=== PATIENT | female | born 1935 | race Caucasian/White ===

== ENCOUNTER 2018-07-12 13:20 | Emergency (ER) | payer MEDICARE, SELFPAY ==
[2018-07-12 13:22] VITALS: BP 145/87; PULSE 91; RESP 16; TEMP 36.4; O2SAT 98; BMI 41.8
--- NOTE | 2018-07-12 13:42 | CT_ITS ---
STUDY: CT BRAIN WITHOUT CONTRAST REASON FOR EXAM: Female, 82 years old. Status post fall. History of hypertension. RADIATION DOSAGE (If Supplied By Facility): CTDIvol = ( 44.99 ) mGy, DLP = ( 779.24 ) mGycm TECHNIQUE: Transaxial CT imaging of the brain was performed without administration of intravenous contrast material. Individualized dose optimization techniques were used for this CT. COMPARISON: None. FINDINGS: Normal soft tissue structures. Normal calvarium. Normal size ventricles and extra-axial spaces for the patient's age. Normal white matter tracts of the cerebral hemispheres. Normal basal ganglia and thalami. Normal brainstem. Normal cerebellum. There is no intracranial hemorrhage. There are no findings of an acute ischemic infarction. There are surgical clips in the posterior wall of the left maxillary sinus. There is wide opening between the left maxillary sinus and the nasal cavity consistent with recent surgery and nasal turbinectomy. CT/Brain/Head without Contrast IMPRESSION: No acute intracranial process. Electronically Signed: Mal Ward MD at 14:56 EST Tel , Service support ,
--- NOTE | 2018-07-12 13:42 | RAD_ITS ---
STUDY: X-RAY - LEFT HIP REASON FOR EXAM: Female, 82 years old. Fall. Left hip pain. TECHNIQUE: 2 views of the hip. COMPARISON: None. FINDINGS: There is no fracture or dislocation in the pelvis or left hip. There mild degenerative changes in the left hip. There is an intramedullary yanni noted in the right femur. RAD/HIP, UNI W/ Pelvis 2-3 Views IMPRESSION: No fracture or dislocation of the pelvis or left hip. Mild degenerative changes in the left hip. Electronically Signed: Lobito Caruso, at 14:23 EST Tel , Service support ,
--- NOTE | 2018-07-12 15:40 | ED.DCSUM_ITS ---
- ER Visit Summary Date of Service: 07/12/18 Chief Complaint: [Fall with left hip injury] History of Present Illness: The patient is a 82 F [presents the emergency department complaint of a fall that occurred around 11:45 AM. Patient states that she was getting out of her truck and it was wet out she slipped and fell directly onto her left hip on the driveway and her head hit the grass alongside the driveway. Patient was not knocked unconscious but could not get up patient had to have help from a neighbor to stand up and her niece. Patient was subsequently able to ambulate. She denies any neck pain. She denies any chest pain or shortness of breath. Patient is not on any blood thinners. She does have a history of hypertension.] Physical Examination: [HEENT-PERRLA, EOMI. Cranial nerves II through XII grossly intact. TMs clear. Mucous membranes moist. No adenopathy. No C-spine tenderness on palpation Cardiovascular-regular rate and rhythm without murmur or ectopy Lungs-clear to auscultation, chest wall stable without crepitus or subcu emphysema Abdomen-normoactive bowel sounds, soft, nontender, no rebound or rigidity, no peritoneal signs. Back exam-no tenderness over the thoracic or lumbar spine. Extremities-intact ?4, normal range of motion, normal pulses. Left hip-patient does have some diffuse tenderness palpation over the left hip with some faint ecchymosis noted. Patient has no shortening or external rotation. She is neurovascular intact distally. Test Results: [CT scan of the brain without contrast showed nothing acute. X- rays of the left hip and pelvis were negative for fracture. ] Emergency Department Course and Treatment: [Patient is now anything for pain in the department] Treatment Plan: [Patient advised use ice to the area and follow-up with her primary care physician in 5-7 days as needed.] Disposition: [Discharged home in stable condition] Impression: [Mechanical fall Left hip contusion Close head injury] This note was generated with [employer] dictation software. It may contain incorrect words, spelling, and punctuation that were not noted in review of the chart prior to signing ED Disposition - Plan for ED Patient: Chief Complaint: Fall Referrals: [facility] Doctor,Out of [Primary Care Provider] -
--- NOTE | 2018-07-12 15:41 | ED.DEP ---
ED Disposition - Plan for ED Patient: Chief Complaint: Fall Instructions: ED Mechanical Fall, ED Head Injury Closed, ED Contusion Hip Referrals: [facility] Doctor,Out of [Primary Care Provider] - 5-7 Days
--- OUTSIDE RECORDS SUMMARY | 2018-09-05 20:40 | XMS RPT_ITS ---
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, A Community unspecified / Hospital D50.9(ICD-10) Repository 03/04/2018 Active 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, 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 / A Community E78.2(ICD-10) Hospital Repository PROCEDURES PROCEDURES No Procedure Records FoundRESULTS RESULTS DISCHARGE INSTRUCTION Observed: 07/12/2018 Status: F Source: [place] 3:41 PM [facility] [place] [facility] Medical Records Department [address] [place] [address] Discharge Instruction 07/12/18 1541 MR#: [id number] Acct: [id number] Name: VANESSA VUONG Rep #: [id number] : 1935 82 From: Ayush Cordon DO PCP: OUT OF TOWN DOCTOR Status: REG ER ED Disposition - Plan for ED Patient: Chief Complaint: Fall Instructions: ED Mechanical Fall, ED Head Injury Closed, ED Contusion Hip Referrals: [facility] Doctor,Out of [Primary Care Provider] - 5-7 Days What to do if you have Problems For any increased pain, shortness of breath, bleeding, nausea or vomiting, chest pain, or any unexpected problems, contact your Primary Care Provider. Call [facility] ([phone]) or report to the closest Emergency Room. Call 911 if necessary. 07/12/18 154 <Electronically signed by Ayush Cordon DO> Date Ayush Cordon DO Cosigner Signature (If Indicated): Date CC: DR AMINA CURTIS; OUT OF TOWN DOCTOR EMERGENCY DEPARTMENT Observed: 07/12/2018 Status: F Source: [place] SUMMARY 3:40 PM [facility] [place] [facility] Medical Records Department [address] [place] [address] Emergency Department Summary 07/12/18 1538 MR#: [id number] Acct: [id number] Name: VANESSA VUONG Rep #: [id number] : 1935 82 From: Ayush Cordon DO PCP: OUT OF TOWN DOCTOR Status: REG ER - ER Visit Summary Date of Service: 07/12/18 Chief Complaint: [Fall with left hip injury] History of Present Illness: The patient is a 82 F [presents the emergency department complaint of a fall that occurred around 11:45 AM. Patient states that she was getting out of her truck and it was wet out she slipped and fell directly onto her left hip on the driveway and her head hit the grass alongside the driveway. Patient was not knocked unconscious but could not get up patient had to have help from a neighbor to stand up and her niece. Patient was subsequently able to ambulate. She denies any neck pain. She denies any chest pain or shortness of breath. Patient is not on any blood thinners. She does have a history of hypertension.] Physical Examination: [HEENT-PERRLA, EOMI. Cranial nerves II through XII grossly intact. TMs clear. Mucous membranes moist. No adenopathy. No C-spine tenderness on palpation Cardiovascular-regular rate and rhythm without murmur or ectopy Lungs-clear to auscultation, chest wall stable without crepitus or subcu emphysema Abdomen-normoactive bowel sounds, soft, nontender, no rebound or rigidity, no peritoneal signs. Back exam-no tenderness over the thoracic or lumbar spine. Extremities-intact 4, normal range of motion, normal pulses. Left hip-patient does have some diffuse tenderness palpation over the left hip with some faint ecchymosis noted. Patient has no shortening or external rotation. She is neurovascular intact distally. Test Results: [CT scan of the brain without contrast showed nothing acute. X-rays of the left hip and pelvis were negative for fracture. ] Emergency Department Course and Treatment: [Patient is now anything for pain in the department] Treatment Plan: [Patient advised use ice to the area and follow- up with her primary care physician in 5-7 days as needed.] Disposition: [Discharged home in stable condition] Impression: [Mechanical fall Left hip contusion Close head injury] This note was generated with [employer] dictation software. It may contain incorrect words, spelling, and punctuation that were not noted in review of the chart prior to signing ED Disposition - Plan for ED Patient: Chief Complaint: Fall Referrals: [facility] Doctor,Out of [Primary Care Provider] - What to do if you have Problems For any increased pain, shortness of breath, bleeding, nausea or vomiting, chest pain, or any unexpected problems, contact your Primary Care Provider. Call [facility] ([phone]) or report to the closest Emergency Room. Call 911 if necessary. 07/12/18 1540 <Electronically signed by Ayush Cordon DO> Date Ayush Cordon DO Cosigner Signature (If Indicated): Date CC: DR AMINA CURTIS; OUT OF TOWN DOCTOR HIP, UNI W/ PELVIS Observed: 07/12/2018 Status: F Source: [place] 2-3 VIEWS 1:43 PM [facility] [place] [facility] Imaging Services [address] [place] [address] HIP, UNI W/ Pelvis 2-3 Views MR#: [id number] Acct: [id number] Name: VANESSA VUONG Rep #: [id number] : 1935 F 82 From: Lobito Caruso MD PCP: OUT OF TOWN DOCTOR Status: REG ER Study: HIP, UNI W/ Pelvis 2-3 Views Date of Exam: 07/12/18 Exam# [id number] Ordering Dr: Ayush Cordon DO STUDY: X-RAY - LEFT HIP REASON FOR EXAM: Female, 82 years old. Fall. Left hip pain. TECHNIQUE: 2 views of the hip. COMPARISON: None. FINDINGS: There is no fracture or dislocation in the pelvis or left hip. There mild degenerative changes in the left hip. There is an intramedullary yanni noted in the right femur. RAD/HIP, UNI W/ Pelvis 2-3 Views IMPRESSION: No fracture or dislocation of the pelvis or left hip. Mild degenerative changes in the left hip. Electronically Signed: Lobito Caruso, at 14:23 EST Tel , Service support , CC: OUT OF TOWN DOCTOR; Ayush Cordon DO [employer] Aide: Signed BRAIN/HEAD WITHOUT Observed: 07/12/2018 Status: F Source: [place] CONTRAST 1:43 PM [facility] [place] [facility] Imaging Services [address] [place] [address] Brain/Head without Contrast MR#: [id number] Acct: [id number] Name: VANESSA VUONG Rep #: [id number] : 1935 F 82 From: Mal Ward MD PCP: OUT OF TOWN DOCTOR Status: REG ER Study: Brain/Head without Contrast Date of Exam: 07/12/18 Exam# [id number] Ordering Dr: Ayush Cordon DO STUDY: CT BRAIN WITHOUT CONTRAST REASON FOR EXAM: Female, 82 years old. Status post fall. History of hypertension. RADIATION DOSAGE (If Supplied By Facility): CTDIvol = ( 44.99 ) mGy, DLP = ( 779.24 ) mGycm TECHNIQUE: Transaxial CT imaging of the brain was performed without administration of intravenous contrast material. Individualized dose optimization techniques were used for this CT. COMPARISON: None. FINDINGS: Normal soft tissue structures. Normal calvarium. Normal size ventricles and extra-axial spaces for the patient's age. Normal white matter tracts of the cerebral hemispheres. Normal basal ganglia and thalami. Normal brainstem. Normal cerebellum. There is no intracranial hemorrhage. There are no findings of an acute ischemic infarction. There are surgical clips in the posterior wall of the left maxillary sinus. There is wide opening between the left maxillary sinus and the nasal cavity consistent with recent surgery and nasal turbinectomy. CT/Brain/Head without Contrast IMPRESSION: No acute intracranial process. Electronically Signed: Mal Ward MD at 14:56 EST Tel , Service support , CC: OUT OF TOWN DOCTOR; Ayush Cordon DO [employer] Aide: Signed CBC WITH AUTO DIFF Collected: 03/04/2018 Status: F Source: [place] 7:18 AM [facility] [place] TYPE CODE TESTS RESULT OUT OF RANGE REFERENCE UNITS LAB WBC 4.0-11.0 K/uL WHITE BLOOD Normal COUNT 5.9 LAB RBC 4.20-5.50 M/uL RED BLOOD Normal COUNT 4.29 LAB HGB 12.0-16.0 g/dL HEMOGLOBIN Normal 12.3 LAB HCT 37.0-47.0 % Low HEMATOCRIT 36.6 LAB MCV 80-97 fL MEAN CELL Normal VOLUME 85.2 LAB MCH 26.0-32.0 pg MEAN Normal CORPUSCULAR HGB 28.6 LAB MCHC 31.0-36.0 g/dL MEAN Normal CORPUSCULAR HGB 33.5 CONC LAB RDW 11.0-15.5 % High RED CELL DISTRI WIDTH 15.6 LAB PLT 140-450 K/uL PLATELET Normal COUNT 218 LAB MPV 6.6-10.5 fl MEAN Normal PLATELET VOLUME 7.3 LAB GR% 42-80 % GRAN % Normal 54.5 LAB LY% 16-48 % LYMPH % Normal 33.6 LAB MO% 3-9 % MONO % Normal 8.5 LAB EO% 0-8 % EOS % Normal 2.8 LAB BASO% 0-2 % BAS0 % Normal 0.60 LAB GR# 2.2-9.1 K/uL GRAN # Normal 3.2 LAB LY# 1.0-4.0 K/uL LYMPH # Normal 2.0 LAB MO# 0.1-1.7 K/uL MONO # Normal 0.5 LAB EO# 0.0-1.80 K/uL EOS # Normal 0.2 LAB BA# 0-0.1 K/ul BASO # Normal 0.0 Performed By: #### CBC #### [address] [address] IRON Collected: 03/04/2018 Status: F Source: [place] 7:18 AM [facility] [place] [facility] TYPE CODE TESTS RESULT OUT OF RANGE REFERENCE UNITS LAB FE 50-170 ug/dL Normal IRON 59 Performed By: #### LIPID, MN, FE #### [address] [address] COMPREHENSIVE METABOLIC Collected: 03/04/2018 Status: F Source: [place] PANEL 7:18 AM [facility] [place] [facility] TYPE CODE TESTS RESULT OUT OF REFERENCE UNITS RANGE LAB GLU 70-100 mg/dL GLUCOSE Normal 90 LAB BUN 7-18 mg/dL BUN High 27.0 LAB CRE 0.4-1.2 mg/dL CREATININE Normal 1.00 LAB NA 136-147 MMOL/L SODIUM Normal 142 LAB K 3.6-5.2 MMOL/L POTASSIUM Normal 4.1 LAB CL 98-107 MMOL/L CHLORIDE High 109 LAB CO2 21-32 MMOL/L CARBON Normal DIOXIDE 26.0 LAB GAP 11-23 ANION GAP Normal 12.0 LAB HENRIQUE 8.5-10.1 mg/dL CALCIUM Normal 8.9 LAB TP 6.0-8.3 g/dL TOTAL Normal PROTEIN 7.1 LAB ALB 3.0-5.0 g/dL ALBUMIN Normal 3.4 LAB GLOB 2.5-4.6 g/dl GLOBULIN Normal 3.7 LAB A/G 1.1-1.8 Low ALB/GLOB RATIO 0.9 LAB TBIL 0-1.0 mg/dL Normal BILIRUBIN,TOTAL 0.5 LAB SGOT 9-34 U/L SGOT/AST Normal 19 LAB SGPT 12-78 U/L SGPT/ALT Normal 21 LAB ALK 45-117 U/L ALK Normal PHOSPHATASE 92 LAB GFR mL/min GFR 56.0 LAB GFRAA mL/min GFR AM > 60.0 Result Comment: THE NORMAL LEVEL OF GFR VARIES ACCORDING TO AGE, SEX, AND BODY SIZE. A GFR LEVEL OF LESS THAN 60 ML/MIN REPRESENTS LOSS OF THE ADULT LEVEL OF NORMAL KIDNEY FUNCTION. Performed By: #### LIPID, MN, FE #### [address] [address] LIPID PROFILE Collected: 03/04/2018 Status: F Source: [place] (FAST[place]) 7:18 AM [facility] [place] TYPE CODE TESTS RESULT OUT OF REFERENCE UNITS RANGE LAB CHOL 0-200 mg/dL CHOLESTEROL High 237 LAB TRIG 0-150 mg/dL TRIGLYCERIDES High 159 LAB VLDL 5-40 mg/dl VLDL CALCULATION 32 LAB HDL 40-60 mg/dL HDL 46 LAB CHOL/HDL 3.7-5.6 mg/dl CHOL/HDL RATIO 5.2 LAB LDLC 0-130 mg/dL LDL (CALCULATED) 160 Performed By: #### LIPID, MN, FE #### [place] [facility] [address] [place] [address] VIT D 25 [place] Collected: 03/04/2018 Status: F Source: [place] 7:18 AM [facility] [place] [facility] TYPE CODE TESTS RESULT OUT OF RANGE REFERENCE UNITS LAB VD25OH 30-80 ng/mL VIT D 25 40 [place] Result Comment: INTERPRETIVE INFORMATION: Vitamin D, 25-Hydroxy This assay accurately quantifies the sum of vitamin D3, 25-hydroxy and vitamin D2, 25-hydroxy. 0-17 years: Deficiency: less than 20 ng/mL Optimum level: greater than or equal to 20 ng/mL* *(Schmidt KORY et al. Pediatrics 2008; 122: 1142-52.) 18 years and older: Deficiency: Less than 20 ng/mL Insufficiency: 20-29 ng/mL Optimum Level: 30-80 ng/mL Possible Toxicity: Greater than 150 ng/mL Performed by [facility], [address] [place] [id number] [email or web address], Kash Wynn MD, Lab. Director Performed By: #### VD25OH #### [facility] #[id number] [address] [place] [address] CBC WITH AUTO DIFF Collected: 09/10/2017 Status: F Source: [place] 8:34 AM [facility] [place] [facility] TYPE CODE TESTS RESULT OUT OF RANGE REFERENCE UNITS LAB WBC 4.0-11.0 K/uL WHITE BLOOD Normal COUNT 6.5 LAB RBC 4.20-5.50 M/uL RED BLOOD Normal COUNT 4.43 LAB HGB 12.0-16.0 g/dL HEMOGLOBIN Normal 12.2 LAB HCT 37.0-47.0 % Low HEMATOCRIT 36.7 LAB MCV 80-97 fL MEAN CELL Normal VOLUME 83.0 LAB MCH 26.0-32.0 pg MEAN Normal CORPUSCULAR HGB 27.6 LAB MCHC 31.0-36.0 g/dL MEAN Normal CORPUSCULAR HGB 33.2 CONC LAB RDW 11.0-15.5 % High RED CELL DISTRI WIDTH 16.3 LAB PLT 140-450 K/uL PLATELET Normal COUNT 240 LAB MPV 6.6-10.5 fl MEAN Normal PLATELET VOLUME 7.8 LAB GR% 42-80 % GRAN % Normal 62.8 LAB LY% 16-48 % LYMPH % Normal 26.2 LAB MO% 3-9 % MONO % Normal 8.3 LAB EO% 0-8 % EOS % Normal 2.2 LAB BASO% 0-2 % BAS0 % Normal 0.50 LAB GR# 2.2-9.1 K/uL GRAN # Normal 4.1 LAB LY# 1.0-4.0 K/uL LYMPH # Normal 1.7 LAB MO# 0.1-1.7 K/uL MONO # Normal 0.5 LAB EO# 0.0-1.80 K/uL EOS # Normal 0.1 LAB BA# 0-0.1 K/ul BASO # Normal 0.0 Performed By: #### CBC #### [address] [address] IRON Collected: 09/10/2017 Status: F Source: [place] 8:34 [facility] REPOSITORY TYPE CODE TESTS RESULT OUT OF RANGE REFERENCE UNITS LAB FE 50-170 ug/dL Low IRON 30 Performed By: #### LIPID, MN, FE #### [address] [address] COMPREHENSIVE METABOLIC Collected: 09/10/2017 Status: F Source: [place] PANEL 8:34 [facility] REPOSITORY TYPE CODE TESTS RESULT OUT OF REFERENCE UNITS RANGE LAB GLU 70-100 mg/dL GLUCOSE Normal 90 LAB BUN 7-18 mg/dL BUN High 25.0 LAB CRE 0.4-1.2 mg/dL CREATININE Normal 1.10 LAB NA 136-147 MMOL/L SODIUM Normal 142 LAB K 3.6-5.2 MMOL/L POTASSIUM Normal 3.7 LAB CL 98-107 MMOL/L CHLORIDE Normal 107 LAB CO2 21-32 MMOL/L CARBON Normal DIOXIDE 27.0 LAB GAP 11-23 ANION GAP Normal 12.2 LAB HENRIQUE 8.5-10.1 mg/dL CALCIUM Normal 9.1 LAB TP 6.0-8.3 g/dL TOTAL Normal PROTEIN 7.1 LAB ALB 3.0-5.0 g/dL ALBUMIN Normal 3.4 LAB GLOB 2.5-4.6 g/dl GLOBULIN Normal 3.7 LAB A/G 1.1-1.8 Low ALB/GLOB RATIO 0.9 LAB TBIL 0-1.0 mg/dL Normal BILIRUBIN,TOTAL 0.5 LAB SGOT 9-34 U/L SGOT/AST Normal 14 LAB SGPT 12-78 U/L SGPT/ALT Normal 19 LAB ALK 45-117 U/L ALK Normal PHOSPHATASE 96 LAB GFR mL/min GFR 51.9 LAB GFRAA mL/min GFR 62.8 Result Comment: THE NORMAL LEVEL OF GFR VARIES ACCORDING TO AGE, SEX, AND BODY SIZE. A GFR LEVEL OF LESS THAN 60 ML/MIN REPRESENTS LOSS OF THE ADULT LEVEL OF NORMAL KIDNEY FUNCTION. Performed By: #### LIPID, MN, FE #### [facility] [address] [place] [address] LIPID PROFILE Collected: 09/10/2017 Status: F Source: [place] ([place]ST[place]) 8:34 AM [facility] [place] TYPE CODE TESTS RESULT OUT OF REFERENCE UNITS RANGE LAB CHOL 0-200 mg/dL CHOLESTEROL High 230 LAB TRIG 0-150 mg/dL TRIGLYCERIDES Normal 108 LAB VLDL 5-40 mg/dl VLDL CALCULATION 22 LAB HDL 40-60 mg/dL HDL 52 LAB CHOL/HDL 3.7-5.6 mg/dl CHOL/HDL RATIO 4.4 LAB LDLC 0-130 mg/dL LDL (CALCULATED) 156 Performed By: #### LIPID, MN, FE #### [facility] [address] [place] [address] VIT D 25 [place] Collected: 09/10/2017 Status: F Source: [place] 8:34 AM [facility] [place] TYPE CODE TESTS RESULT OUT OF RANGE REFERENCE UNITS LAB VD25OH 30-80 ng/mL VIT D 25 44 [place] Result Comment: INTERPRETIVE INFORMATION: Vitamin D, 25-Hydroxy This assay accurately quantifies the sum of vitamin D3, 25-hydroxy and vitamin D2, 25-hydroxy. 0-17 years: Deficiency: less than 20 ng/mL Optimum level: greater than or equal to 20 ng/mL* *(Schmidt CL et al. Pediatrics 2008; 122: 1142-52.) 18 years and older: Deficiency: Less than 20 ng/mL Insufficiency: 20-29 ng/mL Optimum Level: 30-80 ng/mL Possible Toxicity: Greater than 150 ng/mL Performed by [facility], [address] [place], [place] [id number] [email or web address], Kash Wynn MD, Lab. Director Performed By: #### VD25OH #### [facility] #[id number] [address] [place] [address] THYROID STIM HORMONE Collected: 09/07/2017 Status: F Source: [place] 7:12 [facility] TYPE CODE TESTS RESULT OUT OF RANGE REFERENCE UNITS LAB TSH 0.360-3.74 uIU/mL Normal THYROID STIM 1.280 HORMONE Performed By: #### TSH #### [address] [address] ALLERGIES ALLERGIES DATE TYPE / CODE NAME / CODE REACTION SEVERITY SOURCE 07/12/2018 Drug Penicillins/F00 Rash Unknown [place] [facility] Allergy/355 7657355(RXNORM) Hospital 579827([facility] Repository ED CT) 07/12/2018 Drug Tetanus Rash Unknown [place] [facility] Allergy/416 [facility] 418149([facility] Toxoid/[id number] Repository ED CT) 19(RXNORM) 07/12/2018 Drug hydrocodone/F00 Other Unknown [place] [facility] Allergy/805 2723626(RXNORM) [facility] 362280([facility] Repository ED CT) 07/12/2018 Drug aspirin/I210201 Other Unknown [place] [facility] Allergy/416 587(RXNO) [facility] 541005([facility] Repository ED CT) 07/12/2018 Drug acetaminophen/F Other Unknown [place] [facility] Allergy/416 [id number]([facility] 592275([facility]) Repository ED CT) 07/12/2018 Drug doxycycline/F00 Other Unknown [place] [facility] Allergy/670 8157737(RXNO) [facility] 201643([facility] Repository ED CT) 07/12/2018 Drug azithromycin/F0 Other Unknown [place] [facility] Allergy/416 [id number]([facility] 583986([facility] ) Repository ED CT) 03/06/2015 Drug Aspirin/[id number] Other Unknown [place] Allergy/416 0276(RXNORM) [facility] 513111([facility] ED CT) Repository 03/06/2015 Drug Doxycycline/M00 Rash Unknown [place] Allergy/416 36185124(RXNORM [facility] 435321([facility] ED CT) Repository 03/06/2015 Drug Tetanus Rash Unknown [place] Allergy/416 Antitoxin/M0000 [facility] 156060([facility] 1000[address] ED CT) Repository 03/06/2015 Drug Azithromycin/M0 Rash Unknown [place] Allergy/416 [id number](RXNOR [facility] 028615([facility] ED CT) Repository 03/06/2015 Drug Penicillins/M00 Rash Unknown [place] Allergy/416 59683249(RXNORM Community 867374([facility] ED CT) Repository ENCOUNTERS ENCOUNTERS ADMIT/DISCHARGE ACCOUNT ADMITTING ENCOUNTER LOCATION SOURCE NUMBER CLASS 07/12/2018/ [id number] Emergency [place] 8 2 [facility] ing:ED Repository 03/04/2018 [id number] [facility] ing:LB Repository 09/10/2017 [id number] [facility] ing:LB Repository 09/07/2017 [id number] [facility] ing:LB Repository PAYERS PAYERS ENCOUNTER GUARANTOR PAYER SUBSCRIBER SOURCE 07/12/2018 VANESSA A Primary VANESSA A [place] [id number] Insurance:AETNA ROBSONDOB: [facility] [place]: [id number] [id number] Repository [address]Oin: (330) Date:6009-80-56LU [phone] () [id number] MICHELE SMALL [phone]: 07/12/2018 Secondary NOT GIVENUNK [place] Insurance:SELF PAY [facility] Hospital Number: Effective Repository Date:2018-07-12 03/04/2018 VANESSA A Primary VANESSA A [place] [id number] [facility] ROBSONDOB[facility] [place] [place] Number: [id number] [facility] StreetAlliance, [id number] [address] [place] [address]Qxf: Date:3091[facility], [address] [place] [address] [place] [address] () [address]MA: 03/04/2018 Secondary VANESSA A [place] Insurance:AETNA ROBSONDOB: Community MEDICAREPolicy [id number] Hospital Number: [address] [place] [address] [id number] [facility], Date:0749-61-07[place] [id number] MICHELE SMALL [phone]: 03/04/2018 Tertiary VAENSSA A [place] Insurance:SELF ROBSONUNK Community PAYPolicy Number: Hospital Effective Repository Date:2018-03-04 09/10/2017 Vanessa A Primary Vanessa A [place] [id number] Insurance:AULTCAREPol RobsonDOB: Community [place] Number: [id number] [facility], [id number] [address] [place] [address]Psa: Date:4530-40-66EB [facility], [address] [place] [address] [place] [address] () [id number]: 09/10/2017 Secondary VANESSA A [place] Insurance:SELF ROBSONUNK Community PAYPolicy Number: Hospital Effective Repository Date:2017-09-10 09/07/2017 Vanessa A Primary Vanessa A [place] [id number] Insurance:AULTCAREPol RobsonDOB: Community [place] Number: [id number] [facility], [id number] [address] [address] [place] [address]Mbs: Date:4693-18-88EL[facility], [address] [place] [address] [place] [address] (HP) [address]BP: 09/07/2017 Secondary VANESSA A [place] Insurance:SELF ROBSONUNK Community PAYPolicy Number: Hospital Effective Repository Date:2017-09-07
== END 2018-07-12 15:51 | disposition home or self-care (01) ==
LOC: ED 14:23
PROVIDERS: Emergency Provider Emergency Medicine
DX: S70.02XA Contusion of left hip, initial encounter (principal); S09.90XA Unspecified injury of head, initial encounter; V58.4XXA Person boarding or alighting a pick-up truck or van injured in noncollision transport accident, initial encounter; Y93.9 Activity, unspecified; Y92.008 Other place in unspecified non-institutional (private) residence as the place of occurrence of the external cause; Y99.9 Unspecified external cause status; I10 Essential (primary) hypertension; Z79.899 Other long term (current) drug therapy
CPT/HCPCS: 70450; 73502; 99282

== ENCOUNTER 2018-10-07 12:32 | Emergency (ER) | payer MEDICARE, SELFPAY ==
[2018-10-07 12:33] VITALS: BP 196/94; PULSE 76; RESP 18; TEMP 36.6; O2SAT 96; BMI 39.4
--- NOTE | 2018-10-07 13:02 | CT_ITS ---
STUDY: CT BRAIN WITHOUT CONTRAST REASON FOR EXAM: Female, 82 years old. An trauma. RADIATION DOSAGE (If Supplied By Facility): CTDIvol = ( 60.81 ) mGy, DLP = ( 998.67 ) mGycm TECHNIQUE: Transaxial CT imaging of the brain was performed without administration of intravenous contrast material. Individualized dose optimization techniques were used for this CT. COMPARISON: Comparison is made with prior study dated July 12, 2018. FINDINGS: Normal soft tissue structures. There is hyperostosis frontalis internus. There is mild cerebral atrophy with widening of the extra-axial spaces and ventricular dilatation. Normal white matter tracts of the cerebral hemispheres. Normal basal ganglia and thalami. Normal brainstem. Normal cerebellum. There is no intracranial hemorrhage. There are no findings of an acute ischemic infarction. Atherosclerotic calcification of the vertebral arteries and cavernous portions of the internal carotid arteries bilaterally. There is evidence of prior resection of the medial wall of the left maxillary sinus. Mild residual mucosal thickening. CT/Brain/Head without Contrast IMPRESSION: Chronic involutional changes of the brain. Electronically Signed: Sanket De La Cruz, at 14:11 EST , Service support ,
--- NOTE | 2018-10-07 13:02 | CT_ITS ---
STUDY: CT CERVICAL SPINE WITHOUT CONTRAST REASON FOR EXAM: Female, 82 years old. Trauma. RADIATION DOSAGE (If Supplied By Facility): CTDIvol = ( 33.45 ) mGy, DLP = ( 578.97 ) mGycm TECHNIQUE: High resolution transaxial imaging was performed without contrast material. Sagittal and coronal images were reconstructed. Individualized dose optimization techniques were used for this CT. COMPARISON: None FINDINGS: Normal craniovertebral junction. There are degenerative changes of the anterior atlantoaxial articulation. Nondisplaced transverse fracture along the superior aspect of the dens. Normal cervical lordosis. Normal vertebral bodies and posterior osseous elements. C2-3: Normal endplates. Normal disc height and morphology. Normal central canal and intervertebral neuroforamina. C3-4: Mild degree of disc space narrowing. Facet joint osteoarthritis and hypertrophy worse on the right side. Mild bilateral neural foraminal stenosis. C4-5: Minimal anterior listhesis of C4 on C5. Spondylosis. Disc space narrowing. Facet joint osteoarthritis and uncovertebral arthrosis. Moderate bilateral neural foraminal stenosis. C5-6: Marked degree of disc space narrowing and spondylosis. Uncovertebral arthrosis. Bilateral neural foraminal stenosis. C6-7: Marked degree of disc space narrowing and anterior spondylosis. Facet joint osteoarthritis. Normal visualized soft tissue structures. CT/Spine Cervical without Contras IMPRESSION: Nondisplaced fracture of the superior aspect of the dens. N.B. : The above information has been verbally conveyed by Sanket De La Cruz to Lori Grace MD, on 10/07/2018 14:08:25 (ET). Electronically Signed: Sanket De La Cruz, at 14:09 EST , Service support ,
--- NOTE | 2018-10-07 13:02 | CT_ITS ---
STUDY: CT FACIAL BONES WITHOUT CONTRAST REASON FOR EXAM: Female, 82 years old. History of fall and injury. RADIATION DOSAGE (If Supplied By Facility): CTDIvol = ( 31.48 ) mGy, DLP = ( 471.91 ) mGycm TECHNIQUE: The patient was scanned in a multi detector CT scanner. Sagittal and coronal images were reconstructed. Individualized dose optimization techniques were used for this CT. COMPARISON: None. FINDINGS: Normal soft tissue structures. Normal orbital cordoba and orbital contents. Normal nasal bones and anterior nasal spine. Normal facial bones. There is no demonstrated fracture. Prior resection of the medial wall of the left maxillary sinus. Mild degree of residual postoperative mucosal thickening. Surgical clips are seen along the posterior-lateral wall of the left maxillary sinus. There is a 1.61 polyp or retention cyst along the anterior aspect of the right maxillary sinus. Once again, evidence of a nondisplaced fracture of the superior aspect of the dens. CT/Sinus/Facial Bone IMPRESSION: No acute abnormality is seen. Electronically Signed: Sanket De La Cruz, at 14:13 EST , Service support ,
--- NOTE | 2018-10-07 13:05 | ED.VISSUMM ---
- ER Visit Summary Date of Service: 10/07/18 Chief Complaint: Fall History of Present Illness: The patient is a 82 F presenting after fall. Patient states she tripped over a rug and fell yesterday. She hit her head. She denies loss of consciousness or amnesia. She is not on blood thinners. She complains the pain of the left side of her face and neck. She also complains of left elbow and left hand pain. She is able to ambulate. Denies other complaints. Physical Examination: Vitals are stable. Patient is afebrile. Alert no acute distress. HEENT exam PERRL, EOMI. No pain with extraocular movements. Left periorbital abrasion Neck is mild diffuse tenderness with no step-off Lungs are clear and equal bilaterally. Heart is regular rate and rhythm. Abdomen is soft nontender nondistended. Extremities mild tenderness of the second metacarpal, mild left elbow tenderness with active full range of motion Skin is warm and dry. No focal neurologic deficit. Remainder of exam is unremarkable. Emergency Department Course and Treatment: CT head shows chronic changes. CT maxilla facial bones shows no acute fracture. CT C-spine shows nondisplaced fracture of the superior aspect of the dens. Patient was placed in a cervical collar. CBC, chemistries unremarkable. She was given fentanyl IV. She is allergic to tetanus immunizations. Discussed with [facility] for transfer. Disposition: Transfer [facility] Impression: Dens fracture, mechanical fall This note was generated with [employer] dictation software. It may contain incorrect words, spelling, and punctuation that were not noted in review of the chart prior to signing ED Disposition - Plan for ED Patient: Referrals: [facility] ,Out of [Primary Care Provider] -
[2018-10-07 14:11] VITALS: BP 167/80; PULSE 73; RESP 16; O2SAT 98
[2018-10-07 14:22] LABS: Absolute Lymphocyte Count 1.67 X10^3/ul (0.83-4.51); Absolute Neutrophil Count 8.2 X10^3/uL (2.0-7.7); Basophil# 0.02 X10^3/uL; Basophil% 0.2 % (0-1); Eosinophil# 0.04 X10^3/uL; Eosinophils% 0.4 % (0-5); Hematocrit 38.6 % (37-47); Hemoglobin 12.2 g/dl (12.0-15.0); Lymphocyte # 1.67 X10^3/ul (4.0); Lymphocyte % 15.8 % (19-41); Mean Corp Hgb Conc 31.6 g/gl (32-36); Mean Corpuscular Hgb 27.5 pg (27.0-32.0); Mean Corpuscular Volume 87.1 fL (81-99); Monocyte# 0.65 X10^3/uL; Monocyte% 6.2 % (0-10); Neutrophil # 8.16 X10^3/uL (2.7-7.7); Neutrophil % 77.2 % (47-70); Platelet Count 250 K/mm3 (150-450); RBC Distribution Width CV 16.1 % (11.6-14.6); RBC Distribution Width SD 50.1 fl (35.1-43.9); Red Blood Count 4.43 M/mm3 (4.2-5.4); White Blood Count 10.6 K/mm3 (4.4-11.0)
[2018-10-07 14:25] LABS: POSITIVE COUNT NO; POSITIVE DIFFERENTIAL NO; POSITIVE MORPHOLOGY NO
[2018-10-07 14:29] LABS: Anion Gap 8 (5-15); BUN 22 mg/dL (7-18); BUN/Creat Ratio 23.8 RATIO (10-20); Calcium,Total 9.4 mg/dL (8.5-10.1); Chloride 107 mmol/L (98-107); Creatinine, Serum 0.92 mg/dL (0.55-1.02); EST Glomerular Filtration Rate 62 mL/min (>60); Est Glom Filt Rate - Afr Amer 75 mL/min (>60); Estimated Creatinine Clearance 42.12 ml/min; Glucose 100 mg/dL (74-106); Potassium 3.7 mmol/L (3.5-5.1); Sodium Level 139 mmol/L (136-145)
--- NOTE | 2018-10-07 14:40 | NURSING ---
CALLED [facility] FOR TRANSFER. ER TO ER. DR QUIÑONES TALKING TO THEIR ER DOC
[2018-10-07] MEDS: fentaNYL 100 MCG/2 ML Ampul 25 MCG IV (15:17)
--- NOTE | 2018-10-07 15:19 | NURSING ---
CALLED [facility] FOR TRANSPORT. COMING FROM [place]
[2018-10-07 15:34] VITALS: BP 143/79; PULSE 60; RESP 14; O2SAT 96
== END 2018-10-07 15:47 | disposition short-term general hospital (02) ==
LOC: ED 13:11
PROVIDERS: Emergency Provider Emergency Medicine
DX: S12.121A Other nondisplaced dens fracture, initial encounter for closed fracture (principal); S00.212A Abrasion of left eyelid and periocular area, initial encounter; M79.642 Pain in left hand; M25.522 Pain in left elbow; W18.09XA Striking against other object with subsequent fall, initial encounter; Y93.9 Activity, unspecified; Y92.9 Unspecified place or not applicable; Y99.9 Unspecified external cause status; Z79.899 Other long term (current) drug therapy; Z96.653 Presence of artificial knee joint, bilateral
CPT/HCPCS: 70450; 70486; 72125; 80048; 85025; 99284; A4216

== ENCOUNTER 2018-10-15 14:55 | Inpatient (IN) | payer MEDICARE, SELFPAY ==
[2018-10-15 15:04] VITALS: BP 141/61; PULSE 87; RESP 20; TEMP 36.1; O2SAT 94
--- NOTE | 2018-10-15 15:04 | NURSING ---
Lucy' ARRIVED FROM [facility] AT 1455 VIA STRETCHER.
[2018-10-15 15:07] VITALS: BMI 37.8
[2018-10-15 15:12] VITALS: BMI 37.8
[2018-10-15] MEDS: oxyCODONE 5 MG Tablet PO (16:45)
[2018-10-15] MEDS: Senna/Docusate Sodium 1 Tablet PO (16:45)
[2018-10-15] MEDS: Nystatin Powder 15gm Bottle 1 APPLIC TOPICAL (16:45)
--- NOTE | 2018-10-15 20:20 | PCM.HP.STD ---
Problem List (1) Fall Status: Acute (2) Dens fracture Status: Acute (3) Diverticulosis Status: Chronic (4) Hypothyroidism Status: Chronic History of Present Illness Date of Admission: 10/15/18 Chief Complaint: Here for rehabiliation, strengthening, prior to discharge home alone. The patient is a 82 year old Female with below past medical history presented to [facility] Emergency Department 10/07/2018 with fall. 10/07/2018 CT brain chronic involutional changes of brain. 10/07/2018 CT cervical spine showed nondisplaced fracture of superior aspect of dens. 10/07/2018 CT facial bones negative. Fall, tripped over rub, hit head. Cervical fracture. Cervical collar placed, Fentanyl IV for pain. Transferred to [facility]. No surgery necessary. Driver collar transitioned to [place] J collar. 10/15/2018 Admit to TCU with debility, here for rehabilitation, strengthening, prior to discharge home alone. Past Medical History Past Medical History (Chronic Problems): Chronic Problems Diverticulosis (Chronic) Hypothyroidism (Chronic) Vitamin B12 deficiency (Chronic) Vitamin D deficiency (Chronic) Shortness of breath (Chronic) Allergies acetaminophen [From Vicodin] Allergy (Verified 10/07/18 12:36) Other azithromycin [From Zithromax Z-Krishna] Allergy (Verified 10/07/18 12:36) Other doxycycline Allergy (Verified 10/07/18 12:36) Other hydrocodone [From Vicodin] Allergy (Verified 10/07/18 12:36) Other Penicillins Allergy (Verified 10/07/18 12:36) Rash Tetanus Vaccines and Toxoid Allergy (Verified 10/07/18 12:36) Rash adhesive tape Adverse Reaction (Verified 10/15/18 16:12) Rash aspirin [ASA] Adverse Reaction (Verified 10/07/18 12:36) Other Home Medications: Ambulatory Orders Medication Instructions Recorded Cholecalciferol (Vitamin D3) 2,000 units PO DAILY 10/09/16 [Vitamin D3] Levothyroxine Sodium [Synthroid] 75 mcg PO DAILY 10/09/16 Vitamin B-12 1,000 mcg PO DAILY 10/09/16 Lisinopril/Hydrochlorothiazide 1 tablet PO DAILY 10/15/18 [Zestoretic 20/12.5 Tablet] Nystatin Powder [Mycostatin Powder] 1 applic TOPICAL BID 03/06/19 Oxycodone [Oxyir] 5 mg PO Q8H PRN PRN 10/15/18 Polyethylene Glycol 3350 [Miralax] 17 gm PO DAILY 10/15/18 Sennosides/Docusate Sodium 1 each PO BID 10/15/18 [Senna-S Tablet] Surgical History: cataract - Left., herniorrhaphy, hysterectomy, total knee arthroplasty - Bilateral, - - ORIF right lower extremity, nasal surgery, cystocele, Hemorrhoidectomy, Thyroid surery, Rectocele. Psychiatric History: No pertinent psych hx PROGRAM AND RESEARCH COORDINATOR History: No pertinent PROGRAM AND RESEARCH COORDINATOR history Lives: Alone Smoking Status: Never smoker Tobacco Use: Non-smoker Alcohol: None Drugs: None - *Family History Maternal History Items: No pertinent history Paternal History Items: No pertinent history Review of Systems Constitutional: Denies: Chills, Fever, Weight Change HEENT: Denies: Head Aches, Sinus Congestion, Sinus Drainage Cardiovascular: Denies: Chest Pain, Palpitations Respiratory: Denies: Cough, Shortness of breath at rest, Sputum production Gastrointestinal: Denies: Abdominal Pain, Nausea, Vomiting Genitourinary: Denies: Dysuria Musculoskeletal: Denies: Joint Pain, Joint Tenderness Skin: Denies: Rash, Wounds Neurological: Denies: Numbness, Tingling, Focal weakness Psychiatric: Denies: Anxiety, Depression, Homicidal Ideations, Suicidal Ideations Hematologic/ Lymphatic: Denies: Easy Bruising, Easy Bleeding VTE Information - Inpt Only VTE Present on Admission: No VTE Mechan Device Prophylaxis: Knee High CRYS Hose VTE Pharm Prophylaxis ordered?: Yes Patient Problems: Active and Suspected Problems Fall (Acute) Dens fracture (Acute) - Physical Exam General: Alert, Oriented x3, Cooperative HEENT: Atraumatic, PERRLA, EOMI, Normocephalic Neck: Supple, No JVD, Negative Carotid Bruits, - - [place] J collar. Lungs: Clear to auscultation, Normal air movement Cardiovascular: Regular rate, No murmurs Abdomen: Bowel Sounds Present, Soft, Non Tender Extremities: No edema, Capillary Refill Less than 3 Seconds Skin: No rashes, No breakdown Musculoskeletal: No Tenderness to Palpation of Joints or Extremities Neurological: Cranial nerves II-XII grossly intact Psych/Mental Status: Normal Affect, Appropriate Vital Signs Temp Pulse Resp BP Pulse Ox 96.9 F L 87 20 H 141/61 H 94 03/06/19 15:04 10/15/18 15:04 10/15/18 15:04 10/15/18 15:04 10/15/18 15:04 Oxygen Delivery Method Room Air Weight: 99.79 kg Body Mass Index (BMI) 37.8 Assessment/Plan All Active Problems Fall (Acute) Dens fracture (Acute) Dehydration (Acute) Acute kidney injury (Acute) Debility (Acute) 82 year old female with below past medical history hospitalized for nondisplaced fracture of dens, admitted to TCU with debility, here for rehabilitation, strengthening, prior to discharge home alone. Debility - PT/OT. Pain - Tylenol 1000MG Q6H PRN mild pain, Oxycodone 5MG Q4H PRN moderate to severe pain. Bowel - Miralax 17GM daily, Senna/colace 2 tablets BID, Dulcolax 10MG daily PRN. Pneumonia vaccination - Administer Prevnar 13 and/or Pneumovax 23 as necessary. DVT prophylaxis - Lovenox 40MG SC daily. Vitamin D deficiency - D3 2000IU daily. Vitamin B12 deficiency - B12 1000MCG daily. Hypertension - Lisinopril 20MG daily, HCTZ 12.5MG daily. Hypothyroidism - Levothyroxine 75MCG daily. Skin irritation - Calmoseptine BID coccyx. Tinea Corporis - Nystatin powder BID groin/abdominal folds.
--- NOTE | 2018-10-15 20:24 | HP.PCM_ITS ---
Problem List (1) Fall Status: Acute (2) Dens fracture Status: Acute (3) Diverticulosis Status: Chronic (4) Hypothyroidism Status: Chronic History of Present Illness Date of Admission: 10/15/18 Chief Complaint: Here for rehabiliation, strengthening, prior to discharge home alone. The patient is a 82 year old Female with below past medical history presented to [facility] Emergency Department 10/07/2018 with fall. 10/07/2018 CT brain chronic involutional changes of brain. 10/07/2018 CT cervical spine showed nondisplaced fracture of superior aspect of dens. 10/07/2018 CT facial bones negative. Fall, tripped over rub, hit head. Cervical fracture. Cervical collar placed, Fentanyl IV for pain. Transferred to [facility]. No surgery necessary. Elizabeth collar transitioned to [place] J collar. 10/15/2018 Admit to TCU with debility, here for rehabilitation, strengthening, prior to discharge home alone. Past Medical History Past Medical History (Chronic Problems): Chronic Problems Diverticulosis (Chronic) Hypothyroidism (Chronic) Vitamin B12 deficiency (Chronic) Vitamin D deficiency (Chronic) Shortness of breath (Chronic) Allergies acetaminophen [From Vicodin] Allergy (Verified 10/07/18 12:36) Other azithromycin [From Zithromax Z-Krishna] Allergy (Verified 10/07/18 12:36) Other doxycycline Allergy (Verified 10/07/18 12:36) Other hydrocodone [From Vicodin] Allergy (Verified 10/07/18 12:36) Other Penicillins Allergy (Verified 10/07/18 12:36) Rash Tetanus Vaccines and Toxoid Allergy (Verified 10/07/18 12:36) Rash adhesive tape Adverse Reaction (Verified 10/15/18 16:12) Rash aspirin [ASA] Adverse Reaction (Verified 10/07/18 12:36) Other Home Medications: Ambulatory Orders Medication Instructions Recorded Cholecalciferol (Vitamin D3) 2,000 units PO DAILY 10/09/16 [Vitamin D3] Levothyroxine Sodium [Synthroid] 75 mcg PO DAILY 10/09/16 Vitamin B-12 1,000 mcg PO DAILY 10/09/16 Lisinopril/Hydrochlorothiazide 1 tablet PO DAILY 10/15/18 [Zestoretic 20/12.5 Tablet] Nystatin Powder [Mycostatin Powder] 1 applic TOPICAL BID 03/06/19 Oxycodone [Oxyir] 5 mg PO Q8H PRN PRN 10/15/18 Polyethylene Glycol 3350 [Miralax] 17 gm PO DAILY 10/15/18 Sennosides/Docusate Sodium 1 each PO BID 10/15/18 [Senna-S Tablet] Surgical History: cataract - Left., herniorrhaphy, hysterectomy, total knee arthroplasty - Bilateral, - - ORIF right lower extremity, nasal surgery, cystocele, Hemorrhoidectomy, Thyroid surery, Rectocele. Psychiatric History: No pertinent psych hx SERVICE COORDINATOR History: No pertinent SERVICE COORDINATOR history Lives: Alone Smoking Status: Never smoker Tobacco Use: Non-smoker Alcohol: None Drugs: None - *Family History Maternal History Items: No pertinent history Paternal History Items: No pertinent history Review of Systems Constitutional: Denies: Chills, Fever, Weight Change HEENT: Denies: Head Aches, Sinus Congestion, Sinus Drainage Cardiovascular: Denies: Chest Pain, Palpitations Respiratory: Denies: Cough, Shortness of breath at rest, Sputum production Gastrointestinal: Denies: Abdominal Pain, Nausea, Vomiting Genitourinary: Denies: Dysuria Musculoskeletal: Denies: Joint Pain, Joint Tenderness Skin: Denies: Rash, Wounds Neurological: Denies: Numbness, Tingling, Focal weakness Psychiatric: Denies: Anxiety, Depression, Homicidal Ideations, Suicidal Ideations Hematologic/ Lymphatic: Denies: Easy Bruising, Easy Bleeding VTE Information - Inpt Only VTE Present on Admission: No VTE Mechan Device Prophylaxis: Knee High CRYS Hose VTE Pharm Prophylaxis ordered?: Yes Patient Problems: Active and Suspected Problems Fall (Acute) Dens fracture (Acute) - Physical Exam General: Alert, Oriented x3, Cooperative HEENT: Atraumatic, PERRLA, EOMI, Normocephalic Neck: Supple, No JVD, Negative Carotid Bruits, - - [place] J collar. Lungs: Clear to auscultation, Normal air movement Cardiovascular: Regular rate, No murmurs Abdomen: Bowel Sounds Present, Soft, Non Tender Extremities: No edema, Capillary Refill Less than 3 Seconds Skin: No rashes, No breakdown Musculoskeletal: No Tenderness to Palpation of Joints or Extremities Neurological: Cranial nerves II-XII grossly intact Psych/Mental Status: Normal Affect, Appropriate Vital Signs Temp Pulse Resp BP Pulse Ox 96.9 F L 87 20 H 141/61 H 94 03/06/19 15:04 10/15/18 15:04 10/15/18 15:04 10/15/18 15:04 10/15/18 15:04 Oxygen Delivery Method Room Air Weight: 99.79 kg Body Mass Index (BMI) 37.8 Assessment/Plan All Active Problems Fall (Acute) Dens fracture (Acute) Dehydration (Acute) Acute kidney injury (Acute) Debility (Acute) 82 year old female with below past medical history hospitalized for nondisplaced fracture of dens, admitted to TCU with debility, here for rehabilitation, strengthening, prior to discharge home alone. * Debility - PT/OT. * Pain - Tylenol 1000MG Q6H PRN mild pain, Oxycodone 5MG Q4H PRN moderate to severe pain. * Bowel - Miralax 17GM daily, Senna/colace 2 tablets BID, Dulcolax 10MG daily PRN. * Pneumonia vaccination - Administer Prevnar 13 and/or Pneumovax 23 as necessary. * DVT prophylaxis - Lovenox 40MG SC daily. * Vitamin D deficiency - D3 2000IU daily. * Vitamin B12 deficiency - B12 1000MCG daily. * Hypertension - Lisinopril 20MG daily, HCTZ 12.5MG daily. * Hypothyroidism - Levothyroxine 75MCG daily. * Skin irritation - Calmoseptine BID coccyx. * Tinea Corporis - Nystatin powder BID groin/abdominal folds.
[2018-10-15] MEDS: Menthol/Lanolin/Calamine/Znox 113 GM Tube 1 APPLIC TOPICAL (20:59)
--- NOTE | 2018-10-15 22:28 | NURSING ---
Pt daughter requesting this nurse assess posterior neck under neck brace. Area noted to be red. ABD pad applied. Pt stating it felt way better. Pt resting in bed with call light in reach.
[2018-10-16] MEDS: oxyCODONE 5 MG Tablet PO ×3 (01:14→19:32)
[2018-10-16] MEDS: Polyethylene Glycol 3350 17 GM PACKET PO (05:27)
[2018-10-16] MEDS: hydroCHLOROthiazide 12.5mg 12.5 MG PO (05:28)
[2018-10-16] MEDS: Senna/Docusate Sodium 1 Tablet 2 TABLET PO ×2 (05:28→17:03)
[2018-10-16] MEDS: Lisinopril 20 MG Tablet PO (05:29)
[2018-10-16] MEDS: Levothyroxine 75 MCG Tablet PO (05:29)
[2018-10-16] MEDS: Cyanocobalamin 500 MCG Tablet 1000 MCG PO (05:29)
[2018-10-16] MEDS: Nystatin Powder 15gm Bottle 1 APPLIC TOPICAL ×2 (05:30→17:05)
[2018-10-16] MEDS: Menthol/Lanolin/Calamine/Znox 113 GM Tube 1 APPLIC TOPICAL ×2 (05:32→19:33)
[2018-10-16 06:09] LABS: Absolute Lymphocyte Count 2.01 X10^3/ul (0.83-4.51); Absolute Neutrophil Count 5.1 X10^3/uL (2.0-7.7); Basophil# 0.04 X10^3/uL; Basophil% 0.5 % (0-1); Eosinophil# 0.33 X10^3/uL; Hematocrit 35.5 % (37-47); Hemoglobin 10.7 g/dl (12.0-15.0); Lymphocyte # 2.01 X10^3/ul (4.0); Lymphocyte % 24.5 % (19-41); Mean Corp Hgb Conc 30.1 g/gl (32-36); Mean Corpuscular Hgb 26.9 pg (27.0-32.0); Mean Corpuscular Volume 89.2 fL (81-99); Mean Platelet Vol. 8.8 fl (6.2-12.0); Monocyte# 0.69 X10^3/uL; Monocyte% 8.4 % (0-10); Neutrophil # 5.08 X10^3/uL (2.7-7.7); Neutrophil % 62.1 % (47-70); POSITIVE COUNT NO; POSITIVE DIFFERENTIAL NO; POSITIVE MORPHOLOGY NO; Platelet Count 264 K/mm3 (150-450); RBC Distribution Width CV 16.2 % (11.6-14.6); RBC Distribution Width SD 52.1 fl (35.1-43.9); Red Blood Count 3.98 M/mm3 (4.2-5.4); White Blood Count 8.2 K/mm3 (4.4-11.0)
[2018-10-16 06:21] LABS: Anion Gap 8 (5-15); BUN 39 mg/dL (7-18); Calcium,Total 9.5 mg/dL (8.5-10.1); Chloride 106 mmol/L (98-107); EST Glomerular Filtration Rate 57 mL/min (>60); Est Glom Filt Rate - Afr Amer 69 mL/min (>60); Estimated Creatinine Clearance 38.75 ml/min; Glucose 87 mg/dL (74-106); Potassium 4.2 mmol/L (3.5-5.1); Sodium Level 142 mmol/L (136-145)
--- NOTE | 2018-10-16 08:22 | NURSING ---
Lovenox D/C'd d/t patient stating she gets nosebleeds when she is on it.
[2018-10-16] MEDS: Tuberculin,Purif.prot.deriv. 50 TU/ML Vial 5 ML ID (11:13)
--- NOTE | 2018-10-16 11:34 | PCM.PN.RX ---
<Fahad Falcon D - Last Filed: 10/16/18 11:34> Progress Note - Pharmacy Subjective: TCU Admission Objective: Allergies acetaminophen [From Vicodin] Allergy (Verified 10/07/18 12:36) Other azithromycin [From Zithromax Z-Krishna] Allergy (Verified 10/07/18 12:36) Other doxycycline Allergy (Verified 10/07/18 12:36) Other hydrocodone [From Vicodin] Allergy (Verified 10/07/18 12:36) Other Penicillins Allergy (Verified 10/07/18 12:36) Rash Tetanus Vaccines and Toxoid Allergy (Verified 10/07/18 12:36) Rash adhesive tape Adverse Reaction (Verified 10/15/18 16:12) Rash aspirin [ASA] Adverse Reaction (Verified 10/07/18 12:36) Other Current Medications Generic Name Dose Route Start Last Admin Trade Name Freq PRN Reason Stop Dose Admin Bisacodyl 10 mg 10/15/18 20:34 Dulcolax PO DAILY PRN Constipation Calamine/Phenol 1 applic 10/15/18 22:00 10/16/18 05:32 Calmoseptine Ointment TOPICAL 1 applicatio 0600,2200 SYLVAIN Administration Protocol Cholecalciferol 2,000 unit 10/16/18 06:00 10/16/18 05:29 Vitamin D PO 2,000 unit DAILY SYLVAIN Administration Cyanocobalamin 1,000 mcg 10/16/18 06:00 10/16/18 05:29 Vitamin B12 PO 1,000 mcg DAILY SYLVAIN Administration Hydrochlorothiazide 12.5 mg 10/16/18 06:00 10/16/18 05:28 PO 12.5 mg DAILY SYLVAIN Administration Levothyroxine Sodium 75 mcg 10/16/18 06:00 10/16/18 05:29 Synthroid PO 75 mcg DAILY SYLVAIN Administration Lisinopril 20 mg 10/16/18 06:00 10/16/18 05:29 Zestril PO 20 mg DAILY SYLVAIN Administration Nystatin 1 applic 10/15/18 18:00 10/16/18 05:30 Mycostatin Powder TOPICAL 1 applicatio BID SYLVAIN Administration Protocol Oxycodone HCl 5 mg 10/15/18 16:27 10/16/18 09:01 Oxyir PO 5 mg Q4H PRN PRN Administration MOD-SEVERE PAIN (4-10/10) Polyethylene Glycol 17 gm 10/16/18 06:00 10/16/18 05:27 Miralax PO 17 gm DAILY SYLVAIN Administration Senna/Docusate Sodium 2 tablet 10/16/18 06:00 10/16/18 05:28 Senokot-S, Meaghan-Colace PO 2 tablet BID SYLVAIN Administration Tuberculin PPD 5 tu 10/23/18 10:00 Tubersol, Aplisol, Ppd ID 10/23/18 10:01 X1 ONE Problem List Fall (Acute) Dens fracture (Acute) Diverticulosis (Chronic) Vital Signs Temp Pulse Resp BP Pulse Ox 96.9 F L 87 20 H 141/61 H 94 10/15/18 15:04 10/15/18 15:04 10/15/18 15:04 10/15/18 15:04 10/15/18 15:04 Oxygen Delivery Method Room Air Weight: 99.79 kg Body Mass Index (BMI) 37.8 Sodium 142 mmol/L (136-145) 10/16/18 05:20 Potassium 4.2 mmol/L (3.5-5.1) 10/16/18 05:20 Chloride 106 mmol/L (98-107) 10/16/18 05:20 Carbon Dioxide 28.0 mmol/L (21.0-32.0) 10/16/18 05:20 Anion Gap 8 (5-15) 10/16/18 05:20 BUN 39 mg/dL (7-18) H 10/16/18 05:20 Creatinine 1.00 mg/dL (0.55-1.02) 10/16/18 05:20 Est GFR (MDRD) Af Amer 69 mL/min (>60) 10/16/18 05:20 Est GFR (MDRD) Non-Af 57 mL/min (>60) L 10/16/18 05:20 BUN/Creatinine Ratio 39.0 RATIO (10-20) H 10/16/18 05:20 Glucose 87 mg/dL (74-106) 10/16/18 05:20 Assessment/Plan: 1) Pain Oxycodone for moderate-severe pain. Continue to monitor daily pain scores, prn medication use. 2) Hypothyroidism Levothyroxine. Continue to monitor s/s hyper/hypothyroidism. 3) HTN Lisinopril, HCTZ. Continue to monitor BP/HR, renal function, electrolytes. 4) Nutrition D, B12. Continue to monitor clinically. Psychotropic Medications: None Unnecessary Medications: None Bowel Regimen: 5) Senna/s, PEG, prn bisacodyl. Continue to monitor prn medication use, for constipation/diarrhea. Date of Note:: 10/16/18 - Provider Comments Provider responsibility: Provider responsible to enter orders to implement recommendations <Luis Adams Chi - Last Filed: 10/16/18 14:55> Progress Note - Pharmacy Subjective: [] Objective: Allergies acetaminophen [From Vicodin] Allergy (Verified 10/07/18 12:36) Other azithromycin [From Zithromax Z-Krishna] Allergy (Verified 10/07/18 12:36) Other doxycycline Allergy (Verified 10/07/18 12:36) Other hydrocodone [From Vicodin] Allergy (Verified 10/07/18 12:36) Other Penicillins Allergy (Verified 10/07/18 12:36) Rash Tetanus Vaccines and Toxoid Allergy (Verified 10/07/18 12:36) Rash adhesive tape Adverse Reaction (Verified 10/15/18 16:12) Rash aspirin [ASA] Adverse Reaction (Verified 10/07/18 12:36) Other Current Medications Generic Name Dose Route Start Last Admin Trade Name Freq PRN Reason Stop Dose Admin Bisacodyl 10 mg 10/15/18 20:34 Dulcolax PO DAILY PRN Constipation Calamine/Phenol 1 applic 10/15/18 22:00 10/16/18 05:32 Calmoseptine Ointment TOPICAL 1 applicatio 0600,2200 SYLVAIN Administration Protocol Cholecalciferol 2,000 unit 10/16/18 06:00 10/16/18 05:29 Vitamin D PO 2,000 unit DAILY SYLVAIN Administration Cyanocobalamin 1,000 mcg 10/16/18 06:00 10/16/18 05:29 Vitamin B12 PO 1,000 mcg DAILY SYLVAIN Administration Hydrochlorothiazide 12.5 mg 10/16/18 06:00 10/16/18 05:28 PO 12.5 mg DAILY SYLVAIN Administration Levothyroxine Sodium 75 mcg 10/16/18 06:00 10/16/18 05:29 Synthroid PO 75 mcg DAILY SYLVAIN Administration Lisinopril 20 mg 10/16/18 06:00 10/16/18 05:29 Zestril PO 20 mg DAILY SYLVAIN Administration Nystatin 1 applic 10/15/18 18:00 10/16/18 05:30 Mycostatin Powder TOPICAL 1 applicatio BID SYLVAIN Administration Protocol Oxycodone HCl 5 mg 10/15/18 16:27 10/16/18 09:01 Oxyir PO 5 mg Q4H PRN PRN Administration MOD-SEVERE PAIN (4-10/10) Polyethylene Glycol 17 gm 10/16/18 06:00 10/16/18 05:27 Miralax PO 17 gm DAILY SYLVAIN Administration Senna/Docusate Sodium 2 tablet 10/16/18 06:00 10/16/18 05:28 Senokot-S, Meaghan-Colace PO 2 tablet BID SYLVAIN Administration Tuberculin PPD 5 tu 10/23/18 10:00 Tubersol, Aplisol, Ppd ID 10/23/18 10:01 X1 ONE Problem List Fall (Acute) Dens fracture (Acute) Diverticulosis (Chronic) Vital Signs Temp Pulse Resp BP Pulse Ox 96.9 F L 87 20 H 141/61 H 94 10/15/18 15:04 10/15/18 15:04 10/15/18 15:04 10/15/18 15:04 10/15/18 15:04 Oxygen Delivery Method Room Air Weight: 99.79 kg Body Mass Index (BMI) 37.8 Sodium 142 mmol/L (136-145) 10/16/18 05:20 Potassium 4.2 mmol/L (3.5-5.1) 10/16/18 05:20 Chloride 106 mmol/L (98-107) 10/16/18 05:20 Carbon Dioxide 28.0 mmol/L (21.0-32.0) 10/16/18 05:20 Anion Gap 8 (5-15) 10/16/18 05:20 BUN 39 mg/dL (7-18) H 10/16/18 05:20 Creatinine 1.00 mg/dL (0.55-1.02) 10/16/18 05:20 Est GFR (MDRD) Af Amer 69 mL/min (>60) 10/16/18 05:20 Est GFR (MDRD) Non-Af 57 mL/min (>60) L 10/16/18 05:20 BUN/Creatinine Ratio 39.0 RATIO (10-20) H 10/16/18 05:20 Glucose 87 mg/dL (74-106) 10/16/18 05:20 Assessment/Plan: Psychotropic Medications: Unnecessary Medications: Bowel Regimen: - Provider Comments Provider responsibility: Provider responsible to enter orders to implement recommendations Provider Comments to Recommendations by Pharmacy: Agree
[2018-10-16 16:00] VITALS: BP 105/62; PULSE 65; RESP 20; TEMP 36.4; O2SAT 91
[2018-10-17] MEDS: Levothyroxine 75 MCG Tablet PO (06:29)
[2018-10-17] MEDS: Cyanocobalamin 500 MCG Tablet 1000 MCG PO (06:29)
[2018-10-17] MEDS: hydroCHLOROthiazide 12.5mg 12.5 MG PO (06:29)
[2018-10-17] MEDS: Lisinopril 20 MG Tablet PO (06:29)
[2018-10-17] MEDS: oxyCODONE 5 MG Tablet PO (06:29)
[2018-10-17] MEDS: Menthol/Lanolin/Calamine/Znox 113 GM Tube 1 APPLIC TOPICAL ×2 (06:31→20:15)
[2018-10-17] MEDS: Nystatin Powder 15gm Bottle 1 APPLIC TOPICAL ×2 (06:31→17:43)
[2018-10-17] MEDS: Polyethylene Glycol 3350 17 GM PACKET PO (11:46)
[2018-10-17 15:18] VITALS: BP 102/53; PULSE 65; RESP 18; TEMP 36.7; O2SAT 96
[2018-10-17] MEDS: Senna/Docusate Sodium 1 Tablet 2 TABLET PO (17:43)
[2018-10-18] MEDS: Lisinopril 20 MG Tablet PO (04:46)
[2018-10-18] MEDS: Cyanocobalamin 500 MCG Tablet 1000 MCG PO (04:46)
[2018-10-18] MEDS: Senna/Docusate Sodium 1 Tablet 2 TABLET PO (04:46)
[2018-10-18] MEDS: hydroCHLOROthiazide 12.5mg 12.5 MG PO (04:46)
[2018-10-18] MEDS: Polyethylene Glycol 3350 17 GM PACKET PO (04:46)
[2018-10-18] MEDS: Levothyroxine 75 MCG Tablet PO (04:46)
[2018-10-18] MEDS: Menthol/Lanolin/Calamine/Znox 113 GM Tube 1 APPLIC TOPICAL ×2 (04:47→20:02)
[2018-10-18] MEDS: Nystatin Powder 15gm Bottle 1 APPLIC TOPICAL ×2 (04:49→15:38)
[2018-10-18] MEDS: oxyCODONE 5 MG Tablet PO (09:33)
[2018-10-18 15:32] VITALS: BP 101/67; PULSE 81; RESP 18; TEMP 35.6; O2SAT 85
[2018-10-19] MEDS: Levothyroxine 75 MCG Tablet PO (06:41)
[2018-10-19] MEDS: Polyethylene Glycol 3350 17 GM PACKET PO (06:41)
[2018-10-19] MEDS: Senna/Docusate Sodium 1 Tablet 2 TABLET PO (06:41)
[2018-10-19] MEDS: Lisinopril 20 MG Tablet PO (06:41)
[2018-10-19] MEDS: hydroCHLOROthiazide 12.5mg 12.5 MG PO (06:42)
[2018-10-19] MEDS: Cyanocobalamin 500 MCG Tablet 1000 MCG PO (06:42)
[2018-10-19] MEDS: Menthol/Lanolin/Calamine/Znox 113 GM Tube 1 APPLIC TOPICAL ×2 (06:44→19:47)
[2018-10-19] MEDS: Nystatin Powder 15gm Bottle 1 APPLIC TOPICAL ×2 (06:44→17:58)
[2018-10-19 06:46] VITALS: BP 129/74; PULSE 76
[2018-10-19 15:19] VITALS: BP 105/53; PULSE 76; RESP 20; TEMP 35.9; O2SAT 94
[2018-10-20] MEDS: Lisinopril 20 MG Tablet PO (05:04)
[2018-10-20] MEDS: Senna/Docusate Sodium 1 Tablet 2 TABLET PO (05:04)
[2018-10-20] MEDS: hydroCHLOROthiazide 12.5mg 12.5 MG PO (05:04)
[2018-10-20] MEDS: Cyanocobalamin 500 MCG Tablet 1000 MCG PO (05:04)
[2018-10-20] MEDS: Polyethylene Glycol 3350 17 GM PACKET PO (05:04)
[2018-10-20] MEDS: Levothyroxine 75 MCG Tablet PO (05:04)
[2018-10-20] MEDS: Nystatin Powder 15gm Bottle 1 APPLIC TOPICAL ×2 (05:07→17:13)
[2018-10-20] MEDS: Menthol/Lanolin/Calamine/Znox 113 GM Tube 1 APPLIC TOPICAL ×2 (05:08→19:28)
[2018-10-20 05:09] VITALS: BP 134/66; PULSE 79
--- NOTE | 2018-10-20 11:17 | CASEMGMT ---
Insurance Clinical information sent. Pending continued stay approval at this time. Auth#[id number] Renny VALENTINO, EDVIN
[2018-10-20 16:00] VITALS: BP 121/63; PULSE 70; RESP 20; TEMP 36.6; O2SAT 93
--- NOTE | 2018-10-20 18:05 | NURSING ---
Per pt request, NO for ibuprofen daily prn, dc'd sennacot.
[2018-10-20] MEDS: Ibuprofen 200 MG Tablet PO (18:16)
[2018-10-21] MEDS: Menthol/Lanolin/Calamine/Znox 113 GM Tube 1 APPLIC TOPICAL ×2 (06:23→20:15)
[2018-10-21] MEDS: Lisinopril 20 MG Tablet PO (06:24)
[2018-10-21] MEDS: Cyanocobalamin 500 MCG Tablet 1000 MCG PO (06:24)
[2018-10-21] MEDS: Levothyroxine 75 MCG Tablet PO (06:24)
[2018-10-21] MEDS: Polyethylene Glycol 3350 17 GM PACKET PO (06:25)
[2018-10-21] MEDS: hydroCHLOROthiazide 12.5mg 12.5 MG PO (06:25)
[2018-10-21] MEDS: Ibuprofen 200 MG Tablet PO (06:28)
[2018-10-21] MEDS: Nystatin Powder 15gm Bottle 1 APPLIC TOPICAL ×2 (06:29→14:07)
[2018-10-21 06:30] VITALS: BP 109/66; PULSE 74
--- NOTE | 2018-10-21 10:34 | CASEMGMT ---
Addendum entered by Juliane Brown 10/21/18 10:47: Reviewed and approved social work student documentation. Renny Brown GERIATRIC NURSE PRACTITIONER, SURGICAL SUPPLY ASSISTANT Original Note: Brief interview for mental status (BIMS) and mood (PHQ-9) completed on this day. BIMS score . PHQ-9 score 01/05. Raheem Egan social work student
[2018-10-21 15:49] VITALS: BP 126/75; PULSE 71; RESP 20; TEMP 36.3; O2SAT 95
--- NOTE | 2018-10-21 23:32 | NURSING ---
Pt requesting Motrin be changed to BID for pain, current order is for daily. Pt take one in the morning and at night at home for pain. Pt reporting slight discomfort at this time. Pt refused oxycodone, pt stated, I am trying to get off that stuff. Pt informed this nurse Tylenol gives pt nosebleeds. Dr Adams notified. Dr Adams requesting pt be aware of contraindications with taking Ibuprofen at pt's age: heart failure, kidney failure, elevated blood pressure and/or coffee ground emesis before changing from QD to BID. Pt must take medication with food and lots of water. Pt notified of possible complications with taking Ibuprofen. Pt informed this nurse she would like to discuss medication concerns with daughter before increasing frequency.
[2018-10-22] MEDS: Lisinopril 20 MG Tablet PO (05:54)
[2018-10-22] MEDS: hydroCHLOROthiazide 12.5mg 12.5 MG PO (05:54)
[2018-10-22] MEDS: Levothyroxine 75 MCG Tablet PO (05:54)
[2018-10-22] MEDS: Nystatin Powder 15gm Bottle 1 APPLIC TOPICAL ×2 (05:55→17:22)
[2018-10-22] MEDS: Cyanocobalamin 500 MCG Tablet 1000 MCG PO (05:55)
[2018-10-22] MEDS: Menthol/Lanolin/Calamine/Znox 113 GM Tube 1 APPLIC TOPICAL ×2 (05:55→20:08)
[2018-10-22] MEDS: Polyethylene Glycol 3350 17 GM PACKET PO (05:56)
--- NOTE | 2018-10-22 10:52 | CASEMGMT ---
Plan of care meeting held. Resident present as well as resident family. No discharge date set. Resident plans to discharge to home alone when it is time to discharge. Resident currently pending insurance approval at this time and aware that continued stay approval is not guaranteed. Resident to continue with further care and treatment on the Transitional Care Unit. Support given. Will continue to follow. Renny VALENTINO, EDVIN
--- NOTE | 2018-10-22 14:51 | CASEMGMT ---
Insurance Continued stay approved with next update due 10/29/18. Auth#[id number] Renny VALENTINO, EDVIN
[2018-10-22 15:59] VITALS: BP 125/66; PULSE 81; RESP 20; TEMP 36.9; O2SAT 95
[2018-10-23] MEDS: Menthol/Lanolin/Calamine/Znox 113 GM Tube 1 APPLIC TOPICAL ×2 (05:25→21:46)
[2018-10-23] MEDS: Cyanocobalamin 500 MCG Tablet 1000 MCG PO (05:25)
[2018-10-23] MEDS: Lisinopril 20 MG Tablet PO (05:25)
[2018-10-23] MEDS: hydroCHLOROthiazide 12.5mg 12.5 MG PO (05:25)
[2018-10-23] MEDS: Nystatin Powder 15gm Bottle 1 APPLIC TOPICAL ×2 (05:25→17:33)
[2018-10-23] MEDS: Levothyroxine 75 MCG Tablet PO (05:25)
[2018-10-23 05:48] LABS: Absolute Lymphocyte Count 1.72 X10^3/ul (0.83-4.51); Absolute Neutrophil Count 4.5 X10^3/uL (2.0-7.7); Basophil# 0.04 X10^3/uL; Basophil% 0.6 % (0-1); Eosinophil# 0.24 X10^3/uL; Eosinophils% 3.4 % (0-5); Hematocrit 36.7 % (37-47); Hemoglobin 11.1 g/dl (12.0-15.0); Lymphocyte # 1.72 X10^3/ul (4.0); Lymphocyte % 24.7 % (19-41); Mean Corp Hgb Conc 30.2 g/gl (32-36); Mean Corpuscular Volume 89.3 fL (81-99); Mean Platelet Vol. 8.7 fl (6.2-12.0); Monocyte# 0.49 X10^3/uL; Neutrophil # 4.45 X10^3/uL (2.7-7.7); Neutrophil % 63.9 % (47-70); Platelet Count 319 K/mm3 (150-450); RBC Distribution Width CV 16.3 % (11.6-14.6); RBC Distribution Width SD 52.5 fl (35.1-43.9); Red Blood Count 4.11 M/mm3 (4.2-5.4)
[2018-10-23 05:57] LABS: POSITIVE COUNT NO; POSITIVE DIFFERENTIAL NO; POSITIVE MORPHOLOGY NO
[2018-10-23 06:15] LABS: Anion Gap 10 (5-15); BUN 27 mg/dL (7-18); BUN/Creat Ratio 25.7 RATIO (10-20); Calcium,Total 9.2 mg/dL (8.5-10.1); Chloride 108 mmol/L (98-107); Creatinine, Serum 1.05 mg/dL (0.55-1.02); EST Glomerular Filtration Rate 54 mL/min (>60); Est Glom Filt Rate - Afr Amer 65 mL/min (>60); Glucose 106 mg/dL (74-106); Potassium 3.8 mmol/L (3.5-5.1); Sodium Level 144 mmol/L (136-145)
[2018-10-23] MEDS: Tuberculin,Purif.prot.deriv. 50 TU/ML Vial 5 ML ID (11:46)
[2018-10-23 15:25] VITALS: BP 111/61; PULSE 85; RESP 16; TEMP 37; O2SAT 96
[2018-10-24] MEDS: hydroCHLOROthiazide 12.5mg 12.5 MG PO (06:31)
[2018-10-24] MEDS: Cyanocobalamin 500 MCG Tablet 1000 MCG PO (06:31)
[2018-10-24] MEDS: Polyethylene Glycol 3350 17 GM PACKET PO (06:31)
[2018-10-24] MEDS: Levothyroxine 75 MCG Tablet PO (06:31)
[2018-10-24] MEDS: Lisinopril 20 MG Tablet PO (06:34)
[2018-10-24] MEDS: Menthol/Lanolin/Calamine/Znox 113 GM Tube 1 APPLIC TOPICAL ×2 (06:34→20:34)
[2018-10-24] MEDS: Nystatin Powder 15gm Bottle 1 APPLIC TOPICAL ×2 (06:35→16:43)
--- NOTE | 2018-10-24 15:29 | CASEMGMT ---
Advanced directives. Spoke with resident daughter, Regina. Regina reporting that resident has completed durable power of litigation attorney for health care and Living Will. Regina planning to bring documents in over the weekend and have them placed on resident chart. CHELSY Ritter, FAGOTER
[2018-10-24 15:39] VITALS: BP 112/67; PULSE 75; RESP 16; TEMP 36.2; O2SAT 96
[2018-10-25] MEDS: Cyanocobalamin 500 MCG Tablet 1000 MCG PO (05:36)
[2018-10-25] MEDS: Lisinopril 20 MG Tablet PO (05:36)
[2018-10-25] MEDS: Levothyroxine 75 MCG Tablet PO (05:36)
[2018-10-25] MEDS: hydroCHLOROthiazide 12.5mg 12.5 MG PO (05:36)
[2018-10-25] MEDS: Menthol/Lanolin/Calamine/Znox 113 GM Tube 1 APPLIC TOPICAL ×2 (05:37→19:32)
[2018-10-25] MEDS: Nystatin Powder 15gm Bottle 1 APPLIC TOPICAL ×2 (05:37→17:43)
[2018-10-25 05:38] VITALS: BP 109/64; PULSE 81
[2018-10-25 16:00] VITALS: BP 110/61; PULSE 67; RESP 18; TEMP 37.1; O2SAT 93
[2018-10-26] MEDS: Cyanocobalamin 500 MCG Tablet 1000 MCG PO (04:45)
[2018-10-26] MEDS: Levothyroxine 75 MCG Tablet PO (04:45)
[2018-10-26] MEDS: hydroCHLOROthiazide 12.5mg 12.5 MG PO (04:45)
[2018-10-26] MEDS: Lisinopril 20 MG Tablet PO (04:45)
[2018-10-26] MEDS: Polyethylene Glycol 3350 17 GM PACKET PO (04:46)
[2018-10-26] MEDS: Menthol/Lanolin/Calamine/Znox 113 GM Tube 1 APPLIC TOPICAL ×2 (04:49→19:27)
[2018-10-26] MEDS: Nystatin Powder 15gm Bottle 1 APPLIC TOPICAL ×2 (04:50→15:40)
[2018-10-26 15:39] VITALS: BP 108/59; PULSE 80; RESP 20; TEMP 36.3; O2SAT 96
[2018-10-27] MEDS: hydroCHLOROthiazide 12.5mg 12.5 MG PO (06:00)
[2018-10-27] MEDS: Levothyroxine 75 MCG Tablet PO (06:00)
[2018-10-27] MEDS: Lisinopril 20 MG Tablet PO (06:00)
[2018-10-27] MEDS: Cyanocobalamin 500 MCG Tablet 1000 MCG PO (06:00)
[2018-10-27] MEDS: Nystatin Powder 15gm Bottle 1 APPLIC TOPICAL ×2 (06:01→16:48)
[2018-10-27] MEDS: Menthol/Lanolin/Calamine/Znox 113 GM Tube 1 APPLIC TOPICAL ×2 (06:01→20:48)
[2018-10-27 15:10] VITALS: BP 105/55; PULSE 85; RESP 18; TEMP 36; O2SAT 93
[2018-10-28] MEDS: hydroCHLOROthiazide 12.5mg 12.5 MG PO (04:46)
[2018-10-28] MEDS: Polyethylene Glycol 3350 17 GM PACKET PO (04:46)
[2018-10-28] MEDS: Levothyroxine 75 MCG Tablet PO (04:46)
[2018-10-28] MEDS: Lisinopril 20 MG Tablet PO (04:46)
[2018-10-28] MEDS: Cyanocobalamin 500 MCG Tablet 1000 MCG PO (04:47)
[2018-10-28] MEDS: Nystatin Powder 15gm Bottle 1 APPLIC TOPICAL ×2 (04:50→15:56)
[2018-10-28] MEDS: Menthol/Lanolin/Calamine/Znox 113 GM Tube 1 APPLIC TOPICAL ×2 (04:50→19:49)
[2018-10-28 06:23] VITALS: O2SAT 98
--- NOTE | 2018-10-28 06:46 | MDS.RN ---
Information for the mds was obtained from review of the clinical record, interview of resident, staff, and direct observation of resident's care.
[2018-10-28 15:51] VITALS: BP 112/60; PULSE 83; RESP 18; TEMP 35.8; O2SAT 94
[2018-10-28] MEDS: Ibuprofen 200 MG Tablet PO (19:48)
[2018-10-29] MEDS: Lisinopril 20 MG Tablet PO (06:13)
[2018-10-29] MEDS: Cyanocobalamin 500 MCG Tablet 1000 MCG PO (06:13)
[2018-10-29] MEDS: hydroCHLOROthiazide 12.5mg 12.5 MG PO (06:13)
[2018-10-29] MEDS: Levothyroxine 75 MCG Tablet PO (06:13)
[2018-10-29] MEDS: Nystatin Powder 15gm Bottle 1 APPLIC TOPICAL ×2 (06:18→18:24)
[2018-10-29] MEDS: Menthol/Lanolin/Calamine/Znox 113 GM Tube 1 APPLIC TOPICAL ×2 (06:18→19:28)
--- NOTE | 2018-10-29 08:00 | CASEMGMT ---
Social Work: Continued stay review faxed. Auth #[id number]. YESSICA Harden
--- NOTE | 2018-10-29 11:14 | CASEMGMT ---
Insurance Clinical update faxed. Will await continued stay determination. Auth # [id number] NOLAN Oakes
--- NOTE | 2018-10-29 13:20 | CASEMGMT ---
PHQ9 (09/07) and BIMS () interviews completed on this date for MDS assessment. NOLAN Oakes
[2018-10-29 16:00] VITALS: BP 111/75; PULSE 82; RESP 18; TEMP 35.9; O2SAT 96
[2018-10-29] MEDS: Ibuprofen 200 MG Tablet PO (19:27)
[2018-10-30 06:08] LABS: Absolute Lymphocyte Count 1.69 X10^3/ul (0.83-4.51); Absolute Neutrophil Count 3.3 X10^3/uL (2.0-7.7); Basophil# 0.04 X10^3/uL; Basophil% 0.7 % (0-1); Eosinophil# 0.28 X10^3/uL; Eosinophils% 4.7 % (0-5); Hematocrit 36.5 % (37-47); Lymphocyte # 1.69 X10^3/ul (4.0); Lymphocyte % 28.6 % (19-41); Mean Corp Hgb Conc 30.1 g/gl (32-36); Mean Corpuscular Volume 89.5 fL (81-99); Mean Platelet Vol. 9.1 fl (6.2-12.0); Monocyte# 0.55 X10^3/uL; Monocyte% 9.3 % (0-10); Neutrophil # 3.34 X10^3/uL (2.7-7.7); Neutrophil % 56.5 % (47-70); Platelet Count 284 K/mm3 (150-450); RBC Distribution Width CV 16.6 % (11.6-14.6); RBC Distribution Width SD 53.3 fl (35.1-43.9); Red Blood Count 4.08 M/mm3 (4.2-5.4); White Blood Count 5.9 K/mm3 (4.4-11.0)
[2018-10-30 06:23] LABS: Anion Gap 8 (5-15); BUN 35 mg/dL (7-18); BUN/Creat Ratio 29.4 RATIO (10-20); Chloride 108 mmol/L (98-107); Creatinine, Serum 1.19 mg/dL (0.55-1.02); EST Glomerular Filtration Rate 46 mL/min (>60); Est Glom Filt Rate - Afr Amer 56 mL/min (>60); Estimated Creatinine Clearance 32.56 ml/min; Glucose 81 mg/dL (74-106); Potassium 4.3 mmol/L (3.5-5.1); Sodium Level 141 mmol/L (136-145)
[2018-10-30 06:31] LABS: POSITIVE COUNT NO; POSITIVE DIFFERENTIAL NO; POSITIVE MORPHOLOGY NO
[2018-10-30] MEDS: Levothyroxine 75 MCG Tablet PO (06:39)
[2018-10-30] MEDS: Polyethylene Glycol 3350 17 GM PACKET PO (06:39)
[2018-10-30] MEDS: hydroCHLOROthiazide 12.5mg 12.5 MG PO (06:39)
[2018-10-30] MEDS: Cyanocobalamin 500 MCG Tablet 1000 MCG PO (06:39)
[2018-10-30] MEDS: Nystatin Powder 15gm Bottle 1 APPLIC TOPICAL ×2 (06:40→16:48)
[2018-10-30] MEDS: Menthol/Lanolin/Calamine/Znox 113 GM Tube 1 APPLIC TOPICAL ×2 (06:40→20:44)
[2018-10-30] MEDS: Lisinopril 20 MG Tablet PO (06:41)
--- NOTE | 2018-10-30 08:05 | CASEMGMT ---
Social Work: Met with patient in room to discuss D/C planning. Patient informed this SW that Mena from [facility] did make an on site visit and they are not planning on taking patient back as a resident. This SW explained to patient that [facility] did review referral and they are unable to accept patient because they do not have a senior care bed at this time. Patient would like to continue to pursue placement at [facility]. This SW also gave patient a list of nursing facilities in [place] to review in the event that [facility] is unable to accept patient. Emotional support provided. Will continue to follow to assist with D/C planning as needed. YESSICA Harden
--- NOTE | 2018-10-30 08:39 | NURSING ---
Dr. Adams reviewed labs, order to encourage fluids.
[2018-10-30 15:09] VITALS: BP 108/63; PULSE 75; RESP 18; TEMP 36.8; O2SAT 97
[2018-10-31] MEDS: hydroCHLOROthiazide 12.5mg 12.5 MG PO (05:19)
[2018-10-31] MEDS: Menthol/Lanolin/Calamine/Znox 113 GM Tube 1 APPLIC TOPICAL ×2 (05:19→21:14)
[2018-10-31] MEDS: Levothyroxine 75 MCG Tablet PO (05:19)
[2018-10-31] MEDS: Cyanocobalamin 500 MCG Tablet 1000 MCG PO (05:19)
[2018-10-31] MEDS: Nystatin Powder 15gm Bottle 1 APPLIC TOPICAL ×2 (05:19→16:22)
[2018-10-31] MEDS: Lisinopril 20 MG Tablet PO (05:21)
--- NOTE | 2018-10-31 12:22 | CASEMGMT ---
Addendum entered by Xin Pierce 10/31/18 15:36: Appeal Information Faxed to [facility]. Will await determination. Auth # [id number] NOLAN Oakes Original Note: Insurance Continued stay denied with LCD 11/02 and d/c 11/03. NOMNOC signed and faxed to insurance. Pt choosing to appeal decision. [employer] phone number given to pt dgt who is initiating appeal. Auth # [id number] NOLAN Oakes
--- NOTE | 2018-10-31 12:24 | CASEMGMT ---
Social Work KATIE spoke with pt daughter Regina who plans to appeal insurance decision for denied continue stay. Regina states if pt does not win appeal pt will have to return home where she lives alone. Pt currently is transitioning and will d/c to her one story home in [place]. Regina would like home health PT/OT/CREATIVE ARTS THERAPIST with no preference of company used. KATIE met with pt in room and explained insurance decision. Pt visably upset, does not feel this is appropriate or that she is ready to leave TCU. KATIE discussed appeal option and she is in agreement with pt dgt to appeal. Pt stating she does not feel she can return home but also stating she does not want to go to a [facility] private pay. KATIE will continue to follow for d/c planning. NOLAN Oakes
--- NOTE | 2018-10-31 14:51 | DCINST_ITS ---
- Discharge Diagnoses Current Active Problems: Current Active and Chronic Problems Fall (Acute) Dens fracture (Acute) Diverticulosis (Chronic) You will use the following diet at home:: No restrictions, Regular Your food should be the consistency of: Regular Your liquids should be the consistency of: Regular/Thin Discharge Activity: Return to Normal Activity, May Shower, Use Walker Weight Bearing Status: Weight bearing as tolerated Call your doctor if you observe: Fever of 101 or Higher, Inability to urinate, Inability to have a bowel movement, Shortness of breath, Uncontrolled pain Allergies/Adverse Reactions: Allergies acetaminophen [From Vicodin] Allergy (Verified 10/07/18 12:36) Other azithromycin [From Zithromax Z-Krishna] Allergy (Verified 10/07/18 12:36) Other doxycycline Allergy (Verified 10/07/18 12:36) Other hydrocodone [From Vicodin] Allergy (Verified 10/07/18 12:36) Other Penicillins Allergy (Verified 10/07/18 12:36) Rash Tetanus Vaccines and Toxoid Allergy (Verified 10/07/18 12:36) Rash adhesive tape Adverse Reaction (Verified 10/15/18 16:12) Rash aspirin [ASA] Adverse Reaction (Verified 10/07/18 12:36) Other Medications to take at Discharge Cholecalciferol (Vitamin D3) [Vitamin D3] 2,000 units PO DAILY 10/09/16 Levothyroxine Sodium [Synthroid] 75 mcg PO DAILY 10/09/16 Vitamin B-12 1,000 mcg PO DAILY 10/09/16 Lisinopril/Hydrochlorothiazide [Zestoretic 20/12.5 Tablet] 1 tablet PO DAILY 10/15/18 Nystatin Powder [Mycostatin Powder] 1 applic TOPICAL BID 10/15/18 Ibuprofen [Motrin] 200 mg PO DAILY PRN tablet 10/31/18 Menthol/Lanolin/Calamine/Znox [Calmoseptine Ointment] 1 applic TOPICAL 0600,2200 tube 10/31/18 Mineral Oil/Petrolatum,White [Eucerin] 1 applic TOPICAL QHS jar 10/31/18 Primary Care Physician: Tesha Doctor,Out of [Primary Care Provider] - Please follow up with your Primary Care Physician in: 1 week. Test Results: Test results from this visit will be discussed in further detail at your follow- up appointment, if applicable. Please Follow Up With: Mirza Kruse When: [phone] Please Follow Up With: Amina Soni When: [phone] Proposed Discharge Date: 11/03/18
--- NOTE | 2018-10-31 14:51 | PCM.DC.SUM ---
Discharge Date and Diagnosis - Problem List Patient Problems: Active and Suspected Problems Fall (Acute) Dens fracture (Acute) Date of Admission: 10/15/18 Date of Discharge: 11/03/18 - Primary Discharge Diagnosis Active and Suspected Problems Fall (Acute) Dens fracture (Acute) - Secondary Discharge Diagnosis Chronic Problems Diverticulosis (Chronic) Hypothyroidism (Chronic) Vitamin B12 deficiency (Chronic) Vitamin D deficiency (Chronic) Shortness of breath (Chronic) Hospital Course and Treatment Imaging Results: 10/15/18 15:46 Diet: Regular Diet Is pt able to select menu?: Yes Diet Comments: Low Salt Labs (Last 48 Hours) 10/30/18 10/30/18 05:25 05:25 WBC 5.9 RBC 4.08 L Hgb 11.0 L Hct 36.5 L MCV 89.5 MCH 27.0 MCHC 30.1 L RDW 16.6 H RDW Differential 53.3 H Plt Count 284 MPV 9.1 Immature Gran % (Auto) 0.200 Neut % (Auto) 56.5 Lymph % (Auto) 28.6 Newton % (Auto) 9.3 Eos % (Auto) 4.7 Baso % (Auto) 0.7 Absolute Neuts (auto) 3.3 Absolute Lymphs (auto) 1.69 Total Counted Not Reportable Sodium 141 Potassium 4.3 Chloride 108 H Carbon Dioxide 25.0 Anion Gap 8 BUN 35 H Creatinine 1.19 H Estim Creat Clear Calc 32.56 Est GFR (MDRD) Af Amer 56 L Est GFR (MDRD) Non-Af 46 L BUN/Creatinine Ratio 29.4 H Glucose 81 Calcium 9.0 Operations: None Procedures: None Summary of Care Provided: The patient is a 82 year old Female with below past medical history hospitalized for nondisplaced fracture of dens, admitted to TCU with debility, here for rehabilitation, strengthening, prior to discharge home alone. Discharge home alone, with Home Health Care pending appeal. Patient Problems: Active and Suspected Problems Fall (Acute) Dens fracture (Acute) - Physical Exam Vital Signs Temp Pulse Resp BP Pulse Ox 98.3 F 75 18 108/63 97 10/30/18 15:09 10/30/18 15:09 10/30/18 15:09 10/30/18 15:09 10/30/18 15:09 Oxygen Delivery Method Room Air Weight: 99.989 kg Body Mass Index (BMI) 37.8 Intake and Output for Last 24 Hours 10/29/18 10/30/18 10/31/18 23:59 23:59 23:59 Intake Total 960 / 960 580 / 580 480 / 480 Balance 960 / 960 580 / 580 480 / 480 Discharge Diet: No Restrictions Discharge Activity: Return to Normal Activity, May Shower, Use Walker Weight Bearing Status: Weight bearing as tolerated Call your doctor if you observe: Fever of 101 or Higher, Inability to urinate, Inability to have a bowel movement, Shortness of breath, Uncontrolled pain Home Medications: Medications to take at Discharge Cholecalciferol (Vitamin D3) [Vitamin D3] 2,000 units PO DAILY 10/09/16 Levothyroxine Sodium [Synthroid] 75 mcg PO DAILY 10/09/16 Vitamin B-12 1,000 mcg PO DAILY 10/09/16 Lisinopril/Hydrochlorothiazide [Zestoretic 20/12.5 Tablet] 1 tablet PO DAILY 10/15/18 Nystatin Powder [Mycostatin Powder] 1 applic TOPICAL BID 10/15/18 Ibuprofen [Motrin] 200 mg PO DAILY PRN tablet 10/31/18 Menthol/Lanolin/Calamine/Znox [Calmoseptine Ointment] 1 applic TOPICAL 0600,2200 tube 10/31/18 Mineral Oil/Petrolatum,White [Eucerin] 1 applic TOPICAL QHS jar 10/31/18 Primary Care Physician: Tesha Doctor,Out of [Primary Care Provider] - Please follow up with your Primary Care Physician in: 1 week. Please Follow Up With: Mirza Kruse When: [phone] Please Follow Up With: Amina Soni When: [phone] Disposition: Home with Home Health Minutes spent on discharge:: 35 Patient Condition:: Stable Medical Necessity - Tobacco Use Smoking Status: Never smoker Tobacco Use: Non-smoker Meaningful Use Info Meaningful Use Diagnoses (Choose all that apply): None applicable
--- NOTE | 2018-10-31 14:53 | PCM.PN.HH ---
Home Health Note - Plan Overview of reason of hospitalization: The patient is a 82 year old Female with below past medical history hospitalized for nondisplaced fracture of dens, admitted to TCU with debility, here for rehabilitation, strengthening, prior to discharge home alone. Discharge home alone, with Home Health Care pending appeal. Problems: Patient was seen for Fall (Acute) Dens fracture (Acute) Diverticulosis (Chronic) Complete List of Medical Problems Fall (Acute) Dens fracture (Acute) Diverticulosis (Chronic) Hypothyroidism (Chronic) Vitamin B12 deficiency (Chronic) Vitamin D deficiency (Chronic) Shortness of breath (Chronic) Dehydration (Acute) Acute kidney injury (Acute) Debility (Acute) - Requirements and Reasons Disciplines Needed/Ordered: Physical Therapy Reason for Disciplines: Disease Specific Monitoring/education, Medication Management/Knowledge Deficit, Gait Training, Stair Training, Fall Prevention, Home Safety/Equipment Instruction, Balance and/or Posture Training, Transfer Training Related To: Change in Medical Treatment Plan, Limited/Poor Endurance, Shortness of Breath with Activity, Physical Impairments, Unsteady Gait/Balance, Fall Risk Patient is unable to leave the home: Without Aid of Supportive Devices (crutches, cane, wheelchair, walker), Without the assistance of another person Medically Contraindicated related to: Weight Bearing Status, A mental condition that jeopardizes safety - Additional Disciplines Additional Disciplines Needed/Ordered: Occupational Therapy, Home Health Aide
[2018-10-31 16:00] VITALS: BP 128/69; PULSE 81; RESP 16; TEMP 36.8; O2SAT 97
[2018-11-01] MEDS: Lisinopril 20 MG Tablet PO (05:42)
[2018-11-01] MEDS: Levothyroxine 75 MCG Tablet PO (05:43)
[2018-11-01] MEDS: Cyanocobalamin 500 MCG Tablet 1000 MCG PO (05:43)
[2018-11-01] MEDS: hydroCHLOROthiazide 12.5mg 12.5 MG PO (05:43)
[2018-11-01] MEDS: Polyethylene Glycol 3350 17 GM PACKET PO (05:44)
[2018-11-01] MEDS: Menthol/Lanolin/Calamine/Znox 113 GM Tube 1 APPLIC TOPICAL ×2 (05:44→20:28)
[2018-11-01] MEDS: Nystatin Powder 15gm Bottle 1 APPLIC TOPICAL (05:45)
--- NOTE | 2018-11-01 14:35 | NURSING ---
Arlet from [employer] called to inform that pts last covered day is 11/02/18.
[2018-11-01 15:36] VITALS: BP 123/63; PULSE 88; RESP 16; TEMP 37.2; O2SAT 92
[2018-11-02] MEDS: Menthol/Lanolin/Calamine/Znox 113 GM Tube 1 APPLIC TOPICAL ×2 (06:29→20:32)
[2018-11-02] MEDS: Lisinopril 20 MG Tablet PO (06:29)
[2018-11-02] MEDS: Cyanocobalamin 500 MCG Tablet 1000 MCG PO (06:29)
[2018-11-02] MEDS: Levothyroxine 75 MCG Tablet PO (06:29)
[2018-11-02] MEDS: hydroCHLOROthiazide 12.5mg 12.5 MG PO (06:29)
[2018-11-02] MEDS: Nystatin Powder 15gm Bottle 1 APPLIC TOPICAL (06:30)
[2018-11-02 15:17] VITALS: BP 121/58; PULSE 77; RESP 16; TEMP 36.7; O2SAT 94
[2018-11-03] MEDS: Polyethylene Glycol 3350 17 GM PACKET PO (05:38)
[2018-11-03] MEDS: Cyanocobalamin 500 MCG Tablet 1000 MCG PO (05:40)
[2018-11-03] MEDS: Lisinopril 20 MG Tablet PO (05:40)
[2018-11-03] MEDS: Levothyroxine 75 MCG Tablet PO (05:40)
[2018-11-03] MEDS: hydroCHLOROthiazide 12.5mg 12.5 MG PO (05:40)
--- NOTE | 2018-11-03 12:26 | CASEMGMT ---
Social Work Pt lost appeal with insurance. Last covered day 11/02 with d/c 11/03. SW met with pt in room. Pt states she is aware of insurance decision and will be returning to her home today. Pt dgt will transport home and a friend will be staying with her tonight for safety and assurance. Pt is agreeable to home health but defers decision making to daughter Regina. SW spoke with Regina and she confirms d/c plan and has no preference on HHS used. SW provided information on Private duty aids but Regina declines as this is not a viable option. Phone call to [facility] and referral made. Information faxed. They will review information and let SW know if they can accept pt. Plan: Home alone with [facility] PT/OT/ARMED GUARD. NOLAN Oakes
--- NOTE | 2018-11-03 14:54 | CASEMGMT ---
Insurance Insurance notified of pt d/c on this date with home health services. Auth # [id number] NOLAN Oakes
[2018-11-03 15:31] VITALS: BP 102/60; PULSE 69; RESP 20; TEMP 35.8; O2SAT 96
--- NOTE | 2018-11-11 08:13 | MDS.RN ---
Information for the mds was obtained from review of the clinical record, interview of resident, staff ,and direct observation of resident's care.
== END 2018-11-03 14:15 | disposition home health service (06) | DRG 561 ==
PROVIDERS: Admitting Provider Family Medicine Geriatric Medicine; Referring Provider Family Medicine Geriatric Medicine; Visit Provider Family Medicine Geriatric Medicine
DX: S12.121D Other nondisplaced dens fracture, subsequent encounter for fracture with routine healing (principal); W19.XXXD Unspecified fall, subsequent encounter; E03.9 Hypothyroidism, unspecified; B35.4 Tinea corporis; I10 Essential (primary) hypertension; E55.9 Vitamin D deficiency, unspecified; E53.8 Deficiency of other specified B group vitamins
CPT/HCPCS: 36415; 80048; 85025; 97110; 97116; 97124; 97163; 97166; 97530; 97535; 97802

== ENCOUNTER 2019-01-26 15:00 | Inpatient (IN) | payer MEDICARE, SELFPAY ==
--- NOTE | 2019-01-26 16:10 | NURSING ---
Patient admitted to room 19 from [facility] via wheelchair. Oriented to room and call light system explained.
[2019-01-26 16:15] VITALS: BP 135/66; PULSE 63; RESP 17; TEMP 36.7; O2SAT 97
[2019-01-26 16:37] VITALS: BMI 40.5
[2019-01-26 16:51] VITALS: BMI 40.6
[2019-01-26] MEDS: Docusate Sodium 100 MG Capsule PO (16:59)
[2019-01-26] MEDS: oxyCODONE 5 MG Tablet PO (16:59)
--- NOTE | 2019-01-26 20:54 | PCM.HP.STD ---
Problem List (1) Hypertension Status: Chronic (2) Calcium deficiency Status: Chronic (3) Muscle spasm Status: Chronic (4) Hypokalemia Status: Chronic (5) Dens fracture Status: Acute (6) Hypothyroidism Status: Chronic (7) Vitamin B12 deficiency Status: Chronic History of Present Illness Date of Admission: 01/26/19 Chief Complaint: Here for rehabilitation, strengthening, prior to discharge home alone. 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 She was treated conservatively and the odontoid did not heal and she was given option of remaining in the cervical collar indefinitely or having an ORIF. She opted for the latter as she is quite active for her age and she underwent procedure 01/20/[address] Russell. Procedure consisted of ORIF of C2 fracture, internal fixation using C1 and C2 screws, posterolateral arthrodesis from C1-3 and harvesting of iliac crest marrow. Postoperativvely she was not complaining of any chest pain, shortness of breath, dizziness, nausea, vomiting. It was recommended patient haven skilled therapy in nursing facility prior to going home. 01/26/2019 Admit to TCU with debility, here for rehabilitation, strengthening, prior to discharge home alone. Past Medical History Past Medical History (Chronic Problems): Chronic Problems Diverticulosis (Chronic) Hypertension (Chronic) Calcium deficiency (Chronic) Muscle spasm (Chronic) Hypokalemia (Chronic) Hypothyroidism (Chronic) Vitamin B12 deficiency (Chronic) Vitamin D deficiency (Chronic) Shortness of breath (Chronic) Allergies acetaminophen [From Vicodin] Allergy (Verified 10/07/18 12:36) Other azithromycin [From Zithromax Z-Krishna] Allergy (Verified 10/07/18 12:36) Other doxycycline Allergy (Verified 10/07/18 12:36) Other hydrocodone [From Vicodin] Allergy (Verified 10/07/18 12:36) Other Penicillins Allergy (Verified 10/07/18 12:36) Rash Tetanus Vaccines and Toxoid Allergy (Verified 10/07/18 12:36) Rash adhesive tape Adverse Reaction (Verified 10/15/18 16:12) Rash aspirin [ASA] Adverse Reaction (Verified 10/07/18 12:36) Other Home Medications: Ambulatory Orders Medication Instructions Recorded Levothyroxine Sodium [Synthroid] 75 mcg PO DAILY 10/09/16 Vitamin B-12 1,000 mcg PO DAILY 10/09/16 Lisinopril/Hydrochlorothiazide 1 tablet PO DAILY 10/15/18 [Zestoretic 20/12.5 Tablet] Nystatin Powder [Mycostatin Powder] 1 applic TOPICAL DAILY PRN 10/15/18 Bisacodyl 10 mg RC DAILY PRN 01/26/19 Calcium Carbonate/Vitamin D3 1 tab PO DAILY 01/26/19 [Caltrate 600 Plus D3 Tablet] Cyclobenzaprine HCl 10 mg PO TID PRN 01/26/19 Docusate Sodium 100 mg PO BID 01/26/19 Menthol/Lanolin/Calamine/Znox 1 applic TOPICAL 0600,2200 01/26/19 [Calmoseptine Ointment] Oxycodone HCl 1 - 2 tab PO Q4H PRN 01/26/19 Polyethylene Glycol 3350 [Miralax] 17 gm PO DAILY PRN 01/26/19 Potassium Chloride 10 meq PO DAILY 01/26/19 Senna/Docusate Sodium [Senokot-S, 1 tablet PO BID PRN 01/26/19 Meaghan-Colace] Surgical History: cataract - Left., herniorrhaphy, hysterectomy, total knee arthroplasty - Bilateral, - - ORIF right lower extremity, nasal surgery, cystocele, Hemorrhoidectomy, Thyroid surery, Rectocele, ORIF C2 fracture. Psychiatric History: No pertinent psych hx HAND NAILER History: No pertinent HAND NAILER history Lives: Alone Smoking Status: Never smoker Tobacco Use: Non-smoker Alcohol: None - *Family History Maternal History Items: No pertinent history Paternal History Items: No pertinent history Review of Systems Constitutional: Denies: Chills, Fever, Weight Change HEENT: Denies: Head Aches, Sinus Congestion, Sinus Drainage Cardiovascular: Denies: Chest Pain, Palpitations Respiratory: Denies: Cough, Shortness of breath at rest, Sputum production Gastrointestinal: Denies: Abdominal Pain, Nausea, Vomiting Genitourinary: Denies: Dysuria Musculoskeletal: Denies: Joint Pain, Joint Tenderness Skin: Denies: Rash, Wounds Neurological: Denies: Numbness, Tingling, Focal weakness Psychiatric: Denies: Anxiety, Depression, Homicidal Ideations, Suicidal Ideations Hematologic/ Lymphatic: Denies: Easy Bruising, Easy Bleeding VTE Information - Inpt Only VTE Present on Admission: No VTE Mechan Device Prophylaxis: Knee High CRYS Hose VTE Pharm Prophylaxis ordered?: Yes - Physical Exam General: Alert, Oriented x3, Cooperative HEENT: Atraumatic, PERRLA, EOMI, Normocephalic Neck: Supple, No JVD, Negative Carotid Bruits, - - Cervical collar. Lungs: Clear to auscultation, Normal air movement Cardiovascular: Regular rate, No murmurs Abdomen: Bowel Sounds Present, Soft, Non Tender Extremities: No edema, Capillary Refill Less than 3 Seconds Skin: No rashes, No breakdown Musculoskeletal: No Tenderness to Palpation of Joints or Extremities Neurological: Cranial nerves II-XII grossly intact Psych/Mental Status: Normal Affect, Appropriate Vital Signs Temp Pulse Resp BP Pulse Ox 98.0 F 63 17 135/66 H 97 01/26/19 16:15 01/26/19 16:15 01/26/19 16:15 01/26/19 16:15 01/26/19 16:15 Oxygen Delivery Method Room Air Weight: 107.2 kg Body Mass Index (BMI) 40.5 Intake and Output for Last 24 Hours 01/24/19 01/25/19 01/26/19 23:59 23:59 23:59 Intake Total 120 / 120 Balance 120 / 120 Assessment/Plan All Active Problems Fall (Acute) Dens fracture (Acute) Dehydration (Acute) Acute kidney injury (Acute) Debility (Acute) 83 year old female with below past medical history hospitalized for ORIF C2 fracture, admitted to TCU with debility, here for rehabilitation, strengthening, prior to discharge home alone. Debility - PT/OT. Pain - Tylenol 1000MG Q6H PRN mild pain, Oxycodone 5MG Q4H PRN moderate pain. Bowel - Miralax 17GM daily, Senna/colace 1 tablet BID, Dulcolax 10MG [place] daily PRN. Pneumonia vaccination - Administer Prevnar 13 an/do Pneumovax 23 as necessary. DVT prophylaxis - Lovenox 40MG SC daily. Calcium deficiency - Calcium with D daily. Vitamin B12 deficiency - B12 1000MCG daily. Muscle spasm - Flexeril 10MG TID PRN. Hypertension - Lisinopril 20MG daily, HCTZ 12.5MG daily. Hypothyroidism - Levothyroxine 75MCG daily. Skin irritation - Calmoseptine BID. Tinea Corporis - Nystatin powder BID PRN. Hypokalemia - K-Dur 10MEQ daily.
--- NOTE | 2019-01-26 20:59 | HP.PCM_ITS ---
Problem List (1) Hypertension Status: Chronic (2) Calcium deficiency Status: Chronic (3) Muscle spasm Status: Chronic (4) Hypokalemia Status: Chronic (5) Dens fracture Status: Acute (6) Hypothyroidism Status: Chronic (7) Vitamin B12 deficiency Status: Chronic History of Present Illness Date of Admission: 01/26/19 Chief Complaint: Here for rehabilitation, strengthening, prior to discharge home alone. 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 She was treated conservatively and the odontoid did not heal and she was given option of remaining in the cervical collar indefinitely or having an ORIF. She opted for the latter as she is quite active for her age and she underwent procedure 01/20/[address] Russell. Procedure consisted of ORIF of C2 fracture, internal fixation using C1 and C2 screws, posterolateral arthrodesis from C1-3 and harvesting of iliac crest marrow. Postoperativvely she was not complaining of any chest pain, shortness of breath, dizziness, nausea, vomiting. It was recommended patient haven skilled therapy in nursing facility prior to going home. 01/26/2019 Admit to TCU with debility, here for rehabilitation, strengthening, prior to discharge home alone. Past Medical History Past Medical History (Chronic Problems): Chronic Problems Diverticulosis (Chronic) Hypertension (Chronic) Calcium deficiency (Chronic) Muscle spasm (Chronic) Hypokalemia (Chronic) Hypothyroidism (Chronic) Vitamin B12 deficiency (Chronic) Vitamin D deficiency (Chronic) Shortness of breath (Chronic) Allergies acetaminophen [From Vicodin] Allergy (Verified 10/07/18 12:36) Other azithromycin [From Zithromax Z-Krishna] Allergy (Verified 10/07/18 12:36) Other doxycycline Allergy (Verified 10/07/18 12:36) Other hydrocodone [From Vicodin] Allergy (Verified 10/07/18 12:36) Other Penicillins Allergy (Verified 10/07/18 12:36) Rash Tetanus Vaccines and Toxoid Allergy (Verified 10/07/18 12:36) Rash adhesive tape Adverse Reaction (Verified 10/15/18 16:12) Rash aspirin [ASA] Adverse Reaction (Verified 10/07/18 12:36) Other Home Medications: Ambulatory Orders Medication Instructions Recorded Levothyroxine Sodium [Synthroid] 75 mcg PO DAILY 10/09/16 Vitamin B-12 1,000 mcg PO DAILY 10/09/16 Lisinopril/Hydrochlorothiazide 1 tablet PO DAILY 10/15/18 [Zestoretic 20/12.5 Tablet] Nystatin Powder [Mycostatin Powder] 1 applic TOPICAL DAILY PRN 10/15/18 Bisacodyl 10 mg RC DAILY PRN 01/26/19 Calcium Carbonate/Vitamin D3 1 tab PO DAILY 01/26/19 [Caltrate 600 Plus D3 Tablet] Cyclobenzaprine HCl 10 mg PO TID PRN 01/26/19 Docusate Sodium 100 mg PO BID 01/26/19 Menthol/Lanolin/Calamine/Znox 1 applic TOPICAL 0600,2200 01/26/19 [Calmoseptine Ointment] Oxycodone HCl 1 - 2 tab PO Q4H PRN 01/26/19 Polyethylene Glycol 3350 [Miralax] 17 gm PO DAILY PRN 01/26/19 Potassium Chloride 10 meq PO DAILY 01/26/19 Senna/Docusate Sodium [Senokot-S, 1 tablet PO BID PRN 01/26/19 Meaghan-Colace] Surgical History: cataract - Left., herniorrhaphy, hysterectomy, total knee arthroplasty - Bilateral, - - ORIF right lower extremity, nasal surgery, cystocele, Hemorrhoidectomy, Thyroid surery, Rectocele, ORIF C2 fracture. Psychiatric History: No pertinent psych hx SEAM CLOSER History: No pertinent SEAM CLOSER history Lives: Alone Smoking Status: Never smoker Tobacco Use: Non-smoker Alcohol: None - *Family History Maternal History Items: No pertinent history Paternal History Items: No pertinent history Review of Systems Constitutional: Denies: Chills, Fever, Weight Change HEENT: Denies: Head Aches, Sinus Congestion, Sinus Drainage Cardiovascular: Denies: Chest Pain, Palpitations Respiratory: Denies: Cough, Shortness of breath at rest, Sputum production Gastrointestinal: Denies: Abdominal Pain, Nausea, Vomiting Genitourinary: Denies: Dysuria Musculoskeletal: Denies: Joint Pain, Joint Tenderness Skin: Denies: Rash, Wounds Neurological: Denies: Numbness, Tingling, Focal weakness Psychiatric: Denies: Anxiety, Depression, Homicidal Ideations, Suicidal Ideations Hematologic/ Lymphatic: Denies: Easy Bruising, Easy Bleeding VTE Information - Inpt Only VTE Present on Admission: No VTE Mechan Device Prophylaxis: Knee High CRYS Hose VTE Pharm Prophylaxis ordered?: Yes - Physical Exam General: Alert, Oriented x3, Cooperative HEENT: Atraumatic, PERRLA, EOMI, Normocephalic Neck: Supple, No JVD, Negative Carotid Bruits, - - Cervical collar. Lungs: Clear to auscultation, Normal air movement Cardiovascular: Regular rate, No murmurs Abdomen: Bowel Sounds Present, Soft, Non Tender Extremities: No edema, Capillary Refill Less than 3 Seconds Skin: No rashes, No breakdown Musculoskeletal: No Tenderness to Palpation of Joints or Extremities Neurological: Cranial nerves II-XII grossly intact Psych/Mental Status: Normal Affect, Appropriate Vital Signs Temp Pulse Resp BP Pulse Ox 98.0 F 63 17 135/66 H 97 01/26/19 16:15 01/26/19 16:15 01/26/19 16:15 01/26/19 16:15 01/26/19 16:15 Oxygen Delivery Method Room Air Weight: 107.2 kg Body Mass Index (BMI) 40.5 Intake and Output for Last 24 Hours 01/24/19 01/25/19 01/26/19 23:59 23:59 23:59 Intake Total 120 / 120 Balance 120 / 120 Assessment/Plan All Active Problems Fall (Acute) Dens fracture (Acute) Dehydration (Acute) Acute kidney injury (Acute) Debility (Acute) 83 year old female with below past medical history hospitalized for ORIF C2 fracture, admitted to TCU with debility, here for rehabilitation, strengthening, prior to discharge home alone. * Debility - PT/OT. * Pain - Tylenol 1000MG Q6H PRN mild pain, Oxycodone 5MG Q4H PRN moderate pain. * Bowel - Miralax 17GM daily, Senna/colace 1 tablet BID, Dulcolax 10MG [place] daily PRN. * Pneumonia vaccination - Administer Prevnar 13 an/do Pneumovax 23 as necessary. * DVT prophylaxis - Lovenox 40MG SC daily. * Calcium deficiency - Calcium with D daily. * Vitamin B12 deficiency - B12 1000MCG daily. * Muscle spasm - Flexeril 10MG TID PRN. * Hypertension - Lisinopril 20MG daily, HCTZ 12.5MG daily. * Hypothyroidism - Levothyroxine 75MCG daily. * Skin irritation - Calmoseptine BID. * Tinea Corporis - Nystatin powder BID PRN. * Hypokalemia - K-Dur 10MEQ daily.
[2019-01-26] MEDS: Menthol/Lanolin/Calamine/Znox 113 GM Tube 1 APPLIC TOPICAL (21:11)
[2019-01-27] MEDS: oxyCODONE 5 MG Tablet PO ×4 (01:56→18:51)
[2019-01-27 05:56] LABS: Absolute Lymphocyte Count 1.48 X10^3/ul (0.83-4.51); Absolute Neutrophil Count 3.8 X10^3/uL (2.0-7.7); Basophil# 0.02 X10^3/uL; Basophil% 0.3 % (0-1); Eosinophil# 0.29 X10^3/uL; Eosinophils% 4.6 % (0-5); Hemoglobin 10.3 g/dl (12.0-15.0); Lymphocyte # 1.48 X10^3/ul (4.0); Lymphocyte % 23.2 % (19-41); Mean Corp Hgb Conc 31.2 g/gl (32-36); Mean Corpuscular Hgb 28.1 pg (27.0-32.0); Mean Corpuscular Volume 89.9 fL (81-99); Mean Platelet Vol. 8.9 fl (6.2-12.0); Monocyte# 0.74 X10^3/uL; Monocyte% 11.6 % (0-10); Neutrophil # 3.81 X10^3/uL (2.7-7.7); Neutrophil % 59.8 % (47-70); Platelet Count 251 K/mm3 (150-450); RBC Distribution Width CV 15.8 % (11.6-14.6); RBC Distribution Width SD 51.2 fl (35.1-43.9); Red Blood Count 3.67 M/mm3 (4.2-5.4); White Blood Count 6.4 K/mm3 (4.4-11.0)
[2019-01-27 06:06] LABS: POSITIVE COUNT NO; POSITIVE DIFFERENTIAL NO; POSITIVE MORPHOLOGY NO
[2019-01-27 06:21] LABS: Anion Gap 7 (5-15); BUN 20 mg/dL (7-18); BUN/Creat Ratio 21.9 RATIO (10-20); Chloride 110 mmol/L (98-107); Creatinine, Serum 0.92 mg/dL (0.55-1.02); EST Glomerular Filtration Rate 63 mL/min (>60); Est Glom Filt Rate - Afr Amer 76 mL/min (>60); Estimated Creatinine Clearance 41.41 ml/min; Glucose 92 mg/dL (74-106); Potassium 4.2 mmol/L (3.5-5.1); Sodium Level 143 mmol/L (136-145)
[2019-01-27] MEDS: Polyethylene Glycol 3350 17 GM PACKET PO (06:43)
[2019-01-27] MEDS: Levothyroxine 75 MCG Tablet PO (06:43)
[2019-01-27] MEDS: Cyanocobalamin 500 MCG Tablet 1000 MCG PO (06:43)
[2019-01-27] MEDS: hydroCHLOROthiazide 12.5mg 12.5 MG PO (06:44)
[2019-01-27] MEDS: Lisinopril 20 MG Tablet PO (06:44)
[2019-01-27] MEDS: Menthol/Lanolin/Calamine/Znox 113 GM Tube 1 APPLIC TOPICAL (06:46)
[2019-01-27] MEDS: Calcium Carb/Vitamin D 1 TABLET Tablet PO (08:06)
[2019-01-27] MEDS: Tuberculin,Purif.prot.deriv. 50 TU/ML Vial 5 ML ID (14:25)
[2019-01-27 15:19] VITALS: BP 125/66; PULSE 68; RESP 18; TEMP 36.7; O2SAT 96
[2019-01-28] MEDS: Polyethylene Glycol 3350 17 GM PACKET PO (04:46)
[2019-01-28] MEDS: oxyCODONE 5 MG Tablet PO ×3 (04:50→19:56)
[2019-01-28] MEDS: Lisinopril 20 MG Tablet PO (04:50)
[2019-01-28] MEDS: Levothyroxine 75 MCG Tablet PO (04:50)
[2019-01-28] MEDS: hydroCHLOROthiazide 12.5mg 12.5 MG PO (04:50)
[2019-01-28] MEDS: Cyanocobalamin 500 MCG Tablet 1000 MCG PO (04:50)
[2019-01-28] MEDS: Menthol/Lanolin/Calamine/Znox 113 GM Tube 1 APPLIC TOPICAL ×2 (04:51→20:03)
--- NOTE | 2019-01-28 05:45 | NURSING ---
Addendum entered by Neli Khanna 01/28/19 11:45: New order to d/c lovenox. Original Note: Pt refusing Lovenox injections. Pt reports she will get a nose bleed if she has a Lovenox injection, will update Dr Adams.
[2019-01-28] MEDS: Calcium Carb/Vitamin D 1 TABLET Tablet PO (10:17)
[2019-01-28 12:32] VITALS: PULSE 88
[2019-01-28 15:50] VITALS: BP 116/62; PULSE 75; RESP 16; TEMP 36.6; O2SAT 97
[2019-01-28] MEDS: Nystatin Powder 15gm Bottle 1 APPLIC TOPICAL (20:03)
[2019-01-29] MEDS: Levothyroxine 75 MCG Tablet PO (06:27)
[2019-01-29] MEDS: Lisinopril 20 MG Tablet PO (06:27)
[2019-01-29] MEDS: hydroCHLOROthiazide 12.5mg 12.5 MG PO (06:27)
[2019-01-29] MEDS: Menthol/Lanolin/Calamine/Znox 113 GM Tube 1 APPLIC TOPICAL ×2 (06:28→21:21)
[2019-01-29] MEDS: Cyanocobalamin 500 MCG Tablet 1000 MCG PO (06:28)
[2019-01-29] MEDS: Polyethylene Glycol 3350 17 GM PACKET PO (06:28)
[2019-01-29] MEDS: Nystatin Powder 15gm Bottle 1 APPLIC TOPICAL ×2 (06:28→21:21)
[2019-01-29] MEDS: oxyCODONE 5 MG Tablet PO ×2 (06:34→16:08)
[2019-01-29] MEDS: Calcium Carb/Vitamin D 1 TABLET Tablet PO (07:51)
[2019-01-29 11:01] VITALS: PULSE 72; RESP 18; O2SAT 95
--- NOTE | 2019-01-29 14:40 | PHA.CONS_ITS ---
<Fahad Falcon D - Last Filed: 01/29/19 14:40> Progress Note - Pharmacy Subjective: TCU Admission Objective: Allergies acetaminophen [From Vicodin] Allergy (Verified 10/07/18 12:36) Other azithromycin [From Zithromax Z-Krishna] Allergy (Verified 10/07/18 12:36) Other doxycycline Allergy (Verified 10/07/18 12:36) Other hydrocodone [From Vicodin] Allergy (Verified 10/07/18 12:36) Other Penicillins Allergy (Verified 10/07/18 12:36) Rash Tetanus Vaccines and Toxoid Allergy (Verified 10/07/18 12:36) Rash adhesive tape Adverse Reaction (Verified 10/15/18 16:12) Rash aspirin [ASA] Adverse Reaction (Verified 10/07/18 12:36) Other Current Medications Generic Name Dose Route Start Last Admin Trade Name Freq PRN Reason Stop Dose Admin Acetaminophen 1,000 mg 01/26/19 21:05 Tylenol PO Q6H PRN PRN MILD PAIN (1-3/10) Bisacodyl 10 mg 01/26/19 16:21 Dulcolax RECTAL DAILY PRN Constipation Calamine/Phenol 1 applic 01/26/19 22:00 01/29/19 06:28 Calmoseptine Ointment TOPICAL 1 applicatio 0600,2200 SYLVAIN Administration Protocol Calcium/Vitamin D 1 tablet 01/27/19 08:00 01/29/19 07:51 Os-Damion 500mg + D PO 1 tablet DAILYCM SYLVAIN Administration Cyanocobalamin 1,000 mcg 01/27/19 06:00 01/29/19 06:28 Vitamin B12 PO 1,000 mcg DAILY SYLVAIN Administration Cyclobenzaprine HCl 10 mg 01/26/19 16:21 Flexeril PO TID PRN muscle spasms Hydrochlorothiazide 12.5 mg 01/27/19 06:00 01/29/19 06:27 PO 12.5 mg DAILY SYLVAIN Administration Levothyroxine Sodium 75 mcg 01/27/19 06:00 01/29/19 06:27 Synthroid PO 75 mcg DAILY@0600 SYLVAIN Administration Lisinopril 20 mg 01/27/19 06:00 01/29/19 06:27 Zestril PO 20 mg DAILY SYLVAIN Administration Multi-Ingredient Cream 1 applic 01/27/19 22:00 01/28/19 20:01 Eucerin TOPICAL 1 applicatio 2199 SYLVAIN Administration Protocol Nystatin 1 applic 01/27/19 22:00 01/29/19 06:28 Mycostatin Powder TOPICAL 1 applicatio 599,2199 [facility] Administration Protocol Oxycodone HCl 5 mg 01/26/19 21:06 01/29/19 06:34 Oxyir PO 5 mg Q4H PRN PRN Administration MODERATE PAIN (4-5/10) Polyethylene Glycol 17 gm 01/27/19 06:00 01/29/19 06:28 Miralax PO 17 gm DAILY SYLVAIN Administration Potassium Chloride 10 meq 01/27/19 06:00 01/29/19 06:27 K-Dur PO 10 meq DAILY SYLVAIN Administration Senna/Docusate Sodium 1 tablet 01/27/19 06:00 01/29/19 06:28 Senokot-S, Meaghan-Colace PO Not Given BID SYLVAIN Tuberculin PPD 5 tu 02/03/19 10:00 Tubersol, Aplisol, Ppd ID 02/03/19 10:01 X1 ONE Problem List Hypertension (Chronic) Calcium deficiency (Chronic) Muscle spasm (Chronic) Hypokalemia (Chronic) Vital Signs Temp Pulse Resp BP Pulse Ox 97.9 F 72 18 116/62 95 01/28/19 15:50 01/29/19 11:01 01/29/19 11:01 01/28/19 15:50 01/29/19 11:01 Oxygen Delivery Method Room Air Weight: 106.764 kg Body Mass Index (BMI) 40.5 Sodium 143 mmol/L (136-145) 01/27/19 05:05 Potassium 4.2 mmol/L (3.5-5.1) 01/27/19 05:05 Chloride 110 mmol/L (98-107) H 01/27/19 05:05 Carbon Dioxide 26.0 mmol/L (21.0-32.0) 01/27/19 05:05 7 (5-15) 01/27/19 05:05 BUN 20 mg/dL (7-18) H 01/27/19 05:05 0.92 mg/dL (0.55-1.02) 01/27/19 05:05 Est GFR (MDRD) Af Amer 76 mL/min (>60) 01/27/19 05:05 Est GFR (MDRD) Non-Af 63 mL/min (>60) 01/27/19 05:05 21.9 RATIO (10-20) H 01/27/19 05:05 Glucose 92 mg/dL (74-106) 01/27/19 05:05 Assessment/Plan: 1) Pain APAP for mild pain, oxycodone for moderate pain, cyclobenzaprine for spasms. Continue to monitor daily pain scores, prn medication use. 2) HTN Lisinopril, HCTZ. Continue to monitor renal function, electrolytes, BP/HR. 3) Nutrition Ca/D, B12, KCL. Continue to monitor electrolytes. 4) Hypothyroidism Levothyroxine. Continue to monitor s/s hyper/hypothyroidism. Psychotropic Medications: None Unnecessary Medications: None Bowel Regimen: 5) Senna/s, PEG, prn bisacodyl. Continue to monitor prn medication use, for constipation/diarrhea. Date of Note:: 01/29/19 - Provider Comments Provider responsibility: Provider responsible to enter orders to implement recommendations <Luis Adams Chi - Last Filed: 01/29/19 17:29> Progress Note - Pharmacy Subjective: [] Objective: Allergies acetaminophen [From Vicodin] Allergy (Verified 10/07/18 12:36) Other azithromycin [From Zithromax Z-Krishna] Allergy (Verified 10/07/18 12:36) Other doxycycline Allergy (Verified 10/07/18 12:36) Other hydrocodone [From Vicodin] Allergy (Verified 10/07/18 12:36) Other Penicillins Allergy (Verified 10/07/18 12:36) Rash Tetanus Vaccines and Toxoid Allergy (Verified 10/07/18 12:36) Rash adhesive tape Adverse Reaction (Verified 10/15/18 16:12) Rash aspirin [ASA] Adverse Reaction (Verified 10/07/18 12:36) Other Current Medications Generic Name Dose Route Start Last Admin Trade Name Freq PRN Reason Stop Dose Admin Acetaminophen 1,000 mg 01/26/19 21:05 Tylenol PO Q6H PRN PRN MILD PAIN (1-3/10) Bisacodyl 10 mg 01/26/19 16:21 Dulcolax RECTAL DAILY PRN Constipation Calamine/Phenol 1 applic 01/26/19 22:00 01/29/19 06:28 Calmoseptine Ointment TOPICAL 1 applicatio 0600,2199 [facility] Administration Protocol Calcium/Vitamin D 1 tablet 01/27/19 08:00 01/29/19 07:51 Os-Damion 500mg + D PO 1 tablet DAILYCM SYLVAIN Administration Cyanocobalamin 1,000 mcg 01/27/19 06:00 01/29/19 06:28 Vitamin B12 PO 1,000 mcg DAILY SYLVAIN Administration Cyclobenzaprine HCl 10 mg 01/26/19 16:21 Flexeril PO TID PRN muscle spasms Hydrochlorothiazide 12.5 mg 01/27/19 06:00 01/29/19 06:27 PO 12.5 mg DAILY SYLVAIN Administration Levothyroxine Sodium 75 mcg 01/27/19 06:00 01/29/19 06:27 Synthroid PO 75 mcg DAILY@0600 SYLVAIN Administration Lisinopril 20 mg 01/27/19 06:00 01/29/19 06:27 Zestril PO 20 mg DAILY SYLVAIN Administration Multi-Ingredient Cream 1 applic 01/27/19 22:00 01/28/19 20:01 Eucerin TOPICAL 1 applicatio 2199 [facility] Administration Protocol Nystatin 1 applic 01/27/19 22:00 01/29/19 06:28 Mycostatin Powder TOPICAL 1 applicatio 599,2199 [facility] Administration Protocol Oxycodone HCl 5 mg 01/26/19 21:06 01/29/19 16:08 Oxyir PO 5 mg Q4H PRN PRN Administration MODERATE PAIN (4-5/10) Polyethylene Glycol 17 gm 01/27/19 06:00 01/29/19 06:28 Miralax PO 17 gm DAILY SYLVAIN Administration Potassium Chloride 10 meq 01/27/19 06:00 01/29/19 06:27 K-Dur PO 10 meq DAILY SYLVAIN Administration Senna/Docusate Sodium 1 tablet 01/27/19 06:00 01/29/19 17:24 Senokot-S, Meaghan-Colace PO Not Given BID [facility] Tuberculin PPD 5 tu 02/03/19 10:00 Tubersol, Aplisol, Ppd ID 02/03/19 10:01 X1 ONE Problem List Hypertension (Chronic) Calcium deficiency (Chronic) Muscle spasm (Chronic) Hypokalemia (Chronic) Vital Signs Temp Pulse Resp BP Pulse Ox 98.1 F 66 16 157/89 H 94 01/29/19 15:19 01/29/19 15:19 01/29/19 15:19 01/29/19 15:19 01/29/19 15:19 Oxygen Delivery Method Room Air Weight: 106.764 kg Body Mass Index (BMI) 40.5 Sodium 143 mmol/L (136-145) 01/27/19 05:05 Potassium 4.2 mmol/L (3.5-5.1) 01/27/19 05:05 Chloride 110 mmol/L (98-107) H 01/27/19 05:05 Carbon Dioxide 26.0 mmol/L (21.0-32.0) 01/27/19 05:05 7 (5-15) 01/27/19 05:05 BUN 20 mg/dL (7-18) H 01/27/19 05:05 0.92 mg/dL (0.55-1.02) 01/27/19 05:05 Est GFR (MDRD) Af Amer 76 mL/min (>60) 01/27/19 05:05 Est GFR (MDRD) Non-Af 63 mL/min (>60) 01/27/19 05:05 21.9 RATIO (10-20) H 01/27/19 05:05 Glucose 92 mg/dL (74-106) 01/27/19 05:05 Assessment/Plan: Psychotropic Medications: Unnecessary Medications: Bowel Regimen: - Provider Comments Provider responsibility: Provider responsible to enter orders to implement recommendations Provider Comments to Recommendations by Pharmacy: Agree
[2019-01-29 15:19] VITALS: BP 157/89; PULSE 66; RESP 16; TEMP 36.7; O2SAT 94
[2019-01-30] MEDS: oxyCODONE 5 MG Tablet PO ×3 (00:58→20:28)
[2019-01-30] MEDS: Polyethylene Glycol 3350 17 GM PACKET PO (06:03)
[2019-01-30] MEDS: Cyanocobalamin 500 MCG Tablet 1000 MCG PO (06:03)
[2019-01-30] MEDS: Lisinopril 20 MG Tablet PO (06:04)
[2019-01-30] MEDS: hydroCHLOROthiazide 12.5mg 12.5 MG PO (06:04)
[2019-01-30] MEDS: Levothyroxine 75 MCG Tablet PO (06:04)
[2019-01-30] MEDS: Menthol/Lanolin/Calamine/Znox 113 GM Tube 1 APPLIC TOPICAL ×2 (06:06→20:30)
[2019-01-30] MEDS: Nystatin Powder 15gm Bottle 1 APPLIC TOPICAL ×2 (06:07→20:29)
[2019-01-30] MEDS: Calcium Carb/Vitamin D 1 TABLET Tablet PO (07:49)
--- NOTE | 2019-01-30 11:56 | CASEMGMT ---
Insurance: Clinical stay review faxed to Teena at [facility]. Will await continued stay determination. Auth# [id number] NOLAN Oakes
--- NOTE | 2019-01-30 13:43 | CASEMGMT ---
Insurance: Continued stay approved with update due 02/04/19. Pt and dgt Regina notified. Auth# [id number] NOLAN Oakes
[2019-01-30 15:58] VITALS: BP 108/61; PULSE 78; RESP 20; TEMP 36.9; O2SAT 94
[2019-01-31] MEDS: Polyethylene Glycol 3350 17 GM PACKET PO (06:19)
[2019-01-31] MEDS: Levothyroxine 75 MCG Tablet PO (06:19)
[2019-01-31] MEDS: Cyanocobalamin 500 MCG Tablet 1000 MCG PO (06:19)
[2019-01-31] MEDS: Lisinopril 20 MG Tablet PO (06:19)
[2019-01-31] MEDS: hydroCHLOROthiazide 12.5mg 12.5 MG PO (06:19)
[2019-01-31] MEDS: Nystatin Powder 15gm Bottle 1 APPLIC TOPICAL (06:21)
[2019-01-31] MEDS: Menthol/Lanolin/Calamine/Znox 113 GM Tube 1 APPLIC TOPICAL (06:21)
[2019-01-31] MEDS: oxyCODONE 5 MG Tablet PO ×2 (06:31→20:12)
[2019-01-31] MEDS: Calcium Carb/Vitamin D 1 TABLET Tablet PO (07:54)
[2019-01-31 15:38] VITALS: BP 184/70; PULSE 77; RESP 18; TEMP 36.6; O2SAT 87
[2019-02-01] MEDS: oxyCODONE 5 MG Tablet PO ×2 (06:36→19:23)
[2019-02-01] MEDS: Polyethylene Glycol 3350 17 GM PACKET PO (06:37)
[2019-02-01] MEDS: Levothyroxine 75 MCG Tablet PO (06:37)
[2019-02-01] MEDS: Lisinopril 20 MG Tablet PO (06:37)
[2019-02-01] MEDS: hydroCHLOROthiazide 12.5mg 12.5 MG PO (06:38)
[2019-02-01] MEDS: Cyanocobalamin 500 MCG Tablet 1000 MCG PO (06:38)
[2019-02-01] MEDS: Nystatin Powder 15gm Bottle 1 APPLIC TOPICAL ×2 (06:40→19:24)
[2019-02-01] MEDS: Menthol/Lanolin/Calamine/Znox 113 GM Tube 1 APPLIC TOPICAL ×2 (06:41→19:24)
[2019-02-01] MEDS: Calcium Carb/Vitamin D 1 TABLET Tablet PO (07:42)
[2019-02-01 15:43] VITALS: BP 118/61; PULSE 68; RESP 17; TEMP 36.6; O2SAT 95
[2019-02-02] MEDS: Cyanocobalamin 500 MCG Tablet 1000 MCG PO (05:16)
[2019-02-02] MEDS: Levothyroxine 75 MCG Tablet PO (05:16)
[2019-02-02] MEDS: hydroCHLOROthiazide 12.5mg 12.5 MG PO (05:16)
[2019-02-02] MEDS: Lisinopril 20 MG Tablet PO (05:16)
[2019-02-02] MEDS: Polyethylene Glycol 3350 17 GM PACKET PO (05:19)
[2019-02-02] MEDS: Nystatin Powder 15gm Bottle 1 APPLIC TOPICAL ×2 (05:20→19:27)
[2019-02-02] MEDS: Menthol/Lanolin/Calamine/Znox 113 GM Tube 1 APPLIC TOPICAL ×2 (05:20→19:28)
[2019-02-02] MEDS: Calcium Carb/Vitamin D 1 TABLET Tablet PO (05:28)
[2019-02-02] MEDS: oxyCODONE 5 MG Tablet PO ×3 (06:45→21:44)
[2019-02-02 14:57] VITALS: PULSE 68; O2SAT 96
[2019-02-02 15:11] VITALS: BP 123/75; PULSE 70; RESP 18; TEMP 36.9; O2SAT 95
[2019-02-03 05:30] LABS: Absolute Lymphocyte Count 2.06 X10^3/ul (0.83-4.51); Absolute Neutrophil Count 3.6 X10^3/uL (2.0-7.7); Basophil# 0.03 X10^3/uL; Basophil% 0.5 % (0-1); Eosinophils% 4.6 % (0-5); Hematocrit 35.3 % (37-47); Lymphocyte # 2.06 X10^3/ul (4.0); Lymphocyte % 31.4 % (19-41); Mean Corp Hgb Conc 31.2 g/gl (32-36); Mean Corpuscular Volume 89.8 fL (81-99); Mean Platelet Vol. 8.5 fl (6.2-12.0); Monocyte# 0.53 X10^3/uL; Monocyte% 8.1 % (0-10); Neutrophil # 3.63 X10^3/uL (2.7-7.7); Neutrophil % 55.1 % (47-70); Platelet Count 252 K/mm3 (150-450); RBC Distribution Width CV 15.3 % (11.6-14.6); RBC Distribution Width SD 50.2 fl (35.1-43.9); Red Blood Count 3.93 M/mm3 (4.2-5.4); White Blood Count 6.6 K/mm3 (4.4-11.0)
[2019-02-03 05:34] LABS: POSITIVE COUNT NO; POSITIVE DIFFERENTIAL NO; POSITIVE MORPHOLOGY NO
[2019-02-03 05:42] LABS: Anion Gap 9 (5-15); BUN 25 mg/dL (7-18); BUN/Creat Ratio 22.9 RATIO (10-20); Chloride 106 mmol/L (98-107); Creatinine, Serum 1.09 mg/dL (0.55-1.02); EST Glomerular Filtration Rate 51 mL/min (>60); Est Glom Filt Rate - Afr Amer 62 mL/min (>60); Estimated Creatinine Clearance 34.95 ml/min; Glucose 80 mg/dL (74-106); Potassium 4.4 mmol/L (3.5-5.1); Sodium Level 143 mmol/L (136-145)
[2019-02-03] MEDS: Calcium Carb/Vitamin D 1 TABLET Tablet PO (05:52)
[2019-02-03] MEDS: Polyethylene Glycol 3350 17 GM PACKET PO (05:52)
[2019-02-03] MEDS: Cyanocobalamin 500 MCG Tablet 1000 MCG PO (05:52)
[2019-02-03] MEDS: Levothyroxine 75 MCG Tablet PO (05:52)
[2019-02-03] MEDS: hydroCHLOROthiazide 12.5mg 12.5 MG PO (05:52)
[2019-02-03] MEDS: Lisinopril 20 MG Tablet PO (05:52)
[2019-02-03] MEDS: Nystatin Powder 15gm Bottle 1 APPLIC TOPICAL (05:55)
[2019-02-03] MEDS: Menthol/Lanolin/Calamine/Znox 113 GM Tube 1 APPLIC TOPICAL (05:55)
[2019-02-03] MEDS: oxyCODONE 5 MG Tablet PO ×3 (06:28→20:06)
[2019-02-03] MEDS: Tuberculin,Purif.prot.deriv. 50 TU/ML Vial 5 ML ID (09:57)
[2019-02-03 10:07] VITALS: PULSE 77; RESP 18; O2SAT 94
[2019-02-03 16:00] VITALS: BP 113/55; PULSE 76; RESP 20; TEMP 36.7; O2SAT 97
[2019-02-04] MEDS: Polyethylene Glycol 3350 17 GM PACKET PO (06:12)
[2019-02-04] MEDS: Cyanocobalamin 500 MCG Tablet 1000 MCG PO (06:12)
[2019-02-04] MEDS: Levothyroxine 75 MCG Tablet PO (06:12)
[2019-02-04] MEDS: Lisinopril 20 MG Tablet PO (06:12)
[2019-02-04] MEDS: hydroCHLOROthiazide 12.5mg 12.5 MG PO (06:12)
[2019-02-04] MEDS: Menthol/Lanolin/Calamine/Znox 113 GM Tube 1 APPLIC TOPICAL (06:13)
[2019-02-04] MEDS: Nystatin Powder 15gm Bottle 1 APPLIC TOPICAL (06:13)
[2019-02-04] MEDS: oxyCODONE 5 MG Tablet PO ×3 (06:17→19:48)
--- NOTE | 2019-02-04 09:42 | CASEMGMT ---
Insurance: Clinical continued stay review faxed to [facility]. Auth # [id number]
[2019-02-04] MEDS: Calcium Carb/Vitamin D 1 TABLET Tablet PO (09:45)
--- NOTE | 2019-02-04 10:31 | MDS.RN ---
Information for the mds was obtained from review of the clinical record, interview of resident, staff, and direct observation of resident's care.
--- NOTE | 2019-02-04 11:27 | CASEMGMT ---
Addendum entered by Ondina Lr 02/05/19 12:17: Pt discharging 02/07 with [facility] PT/OT/COUCH. No DME needs. Original Note: Social Work IDT met with patient and daughter for care plan meeting. Discussed patient progressing well with therapy. Pt still needs min assist with bathing/dressing upper and lower body d/t neck restrictions. Pt has f/u appt with surgeon on this date to discuss progress and recommendations. Informed pt and dtr insurance update is being submitted on this date and continued stay is not guaranteed. Both understood. Therapy recommending [facility] PT - pt requests [facility]. No DME needs. Will continue to follow for DC plans. Ondina Lr, ITALIAN TEACHER RECEPTIONIST
--- NOTE | 2019-02-04 14:53 | CASEMGMT ---
Insurance: Continued stay denied. LCD 02/06/19 with D/C to be planned for 02/07. Auth #[id number].
[2019-02-04 16:00] VITALS: BP 107/60; PULSE 81; RESP 18; TEMP 37; O2SAT 95
--- NOTE | 2019-02-04 18:14 | NURSING ---
Patient returned from appointment with Dr. Russell, per daughter who was present at appointment, okay for patient to have neck brace off, only has to wear when she wishes, for comfort.
[2019-02-05] MEDS: Levothyroxine 75 MCG Tablet PO (06:12)
[2019-02-05] MEDS: Cyanocobalamin 500 MCG Tablet 1000 MCG PO (06:13)
[2019-02-05] MEDS: Menthol/Lanolin/Calamine/Znox 113 GM Tube 1 APPLIC TOPICAL (06:13)
[2019-02-05] MEDS: hydroCHLOROthiazide 12.5mg 12.5 MG PO (06:13)
[2019-02-05] MEDS: Lisinopril 20 MG Tablet PO (06:13)
[2019-02-05] MEDS: Nystatin Powder 15gm Bottle 1 APPLIC TOPICAL ×2 (06:14→20:50)
[2019-02-05] MEDS: Calcium Carb/Vitamin D 1 TABLET Tablet PO (08:21)
[2019-02-05] MEDS: oxyCODONE 5 MG Tablet PO ×2 (08:56→20:50)
[2019-02-05 15:12] VITALS: BP 103/63; PULSE 85; RESP 18; TEMP 36.6; O2SAT 94
--- NOTE | 2019-02-05 20:30 | DCINST_ITS ---
- Discharge Diagnoses Current Active Problems: Current Active and Chronic Problems Hypertension (Chronic) Calcium deficiency (Chronic) Muscle spasm (Chronic) Hypokalemia (Chronic) You will use the following diet at home:: No restrictions, Regular Your food should be the consistency of: Regular Your liquids should be the consistency of: Regular/Thin Discharge Activity: Return to Normal Activity, May Shower, Use Walker Weight Bearing Status: Weight bearing as tolerated Call your doctor if you observe: Fever of 101 or Higher, Inability to urinate, Inability to have a bowel movement, Shortness of breath, Chest pain, Uncontrolled pain Allergies/Adverse Reactions: Allergies acetaminophen [From Vicodin] Allergy (Verified 10/07/18 12:36) Other azithromycin [From Zithromax Z-Krishna] Allergy (Verified 10/07/18 12:36) Other doxycycline Allergy (Verified 10/07/18 12:36) Other hydrocodone [From Vicodin] Allergy (Verified 10/07/18 12:36) Other Penicillins Allergy (Verified 10/07/18 12:36) Rash Tetanus Vaccines and Toxoid Allergy (Verified 10/07/18 12:36) Rash adhesive tape Adverse Reaction (Verified 10/15/18 16:12) Rash aspirin [ASA] Adverse Reaction (Verified 10/07/18 12:36) Other Medications to take at Discharge Levothyroxine Sodium [Synthroid] 75 mcg PO DAILY 10/09/16 Vitamin B-12 1,000 mcg PO DAILY 10/09/16 Lisinopril/Hydrochlorothiazide [Zestoretic 20/12.5 Tablet] 1 tablet PO DAILY 10/15/18 Nystatin Powder [Mycostatin Powder] 1 applic TOPICAL DAILY PRN 10/15/18 Calcium Carbonate/Vitamin D3 [Caltrate 600 Plus D3 Tablet] 1 tab PO DAILY 01/26/19 Menthol/Lanolin/Calamine/Znox [Calmoseptine Ointment] 1 applic TOPICAL 0600,2200 01/26/19 Polyethylene Glycol 3350 [Miralax] 17 gm PO DAILY PRN 01/26/19 Senna/Docusate Sodium [Senokot-S] 1 tablet PO BID PRN 01/26/19 Mineral Oil/Petrolatum,White [Eucerin] 1 applic TOPICAL 2200 jar 02/05/19 Oxycodone [Oxyir] 5 mg PO Q4H PRN PRN 7 Days #30 tab 02/05/19 Potassium Chloride 10 meq PO DAILY #30 tablet.er 02/05/19 The following prescriptions were given: Oxycodone [Oxyir] 5 mg PO Q4H PRN PRN 7 Days #30 tab PRN Reason: Moderate Pain (4-5/10) Prescription Printed Potassium Chloride 10 meq PO DAILY #30 tablet.er Transmission Status: Pending to [facility]/pharmacy #[id number] Primary Care Physician: [facility] Doctor,Out of [Primary Care Provider] - Test Results: Test results from this visit will be discussed in further detail at your follow- up appointment, if applicable. Please Follow Up With: Dr. Russell When: Daughter will transport Proposed Discharge Date: 02/07/19
--- NOTE | 2019-02-05 20:32 | PCM.DC.SUM ---
Discharge Date and Diagnosis Date of Admission: 01/26/19 Date of Discharge: 02/07/19 - Secondary Discharge Diagnosis Chronic Problems Diverticulosis (Chronic) Hypertension (Chronic) Calcium deficiency (Chronic) Muscle spasm (Chronic) Hypokalemia (Chronic) Hypothyroidism (Chronic) Vitamin B12 deficiency (Chronic) Vitamin D deficiency (Chronic) Shortness of breath (Chronic) Hospital Course and Treatment Imaging Results: 01/26/19 16:24 Diet: Regular Diet Operations: None Procedures: None Summary of Care Provided: The patient is a 83 year old Female with below past medical history hospitalized for ORIF C2 fracture, admitted to TCU with debility, here for rehabilitation, strengthening, prior to discharge home alone. Discharge home alone, Home Health Care for PT. - Physical Exam Vital Signs Temp Pulse Resp BP Pulse Ox 97.8 F 85 18 103/63 94 02/05/19 15:12 02/05/19 15:12 02/05/19 15:12 02/05/19 15:12 02/05/19 15:12 Oxygen Delivery Method Room Air Weight: 107.133 kg Body Mass Index (BMI) 40.5 Intake and Output for Last 24 Hours 02/03/19 02/04/19 02/05/19 23:59 23:59 23:59 Intake Total 720 / 720 720 / 720 840 / 840 Balance 720 / 720 720 / 720 840 / 840 Discharge Diet: No Restrictions Discharge Activity: Return to Normal Activity, May Shower, Use Walker Weight Bearing Status: Weight bearing as tolerated Call your doctor if you observe: Fever of 101 or Higher, Inability to urinate, Inability to have a bowel movement, Shortness of breath, Chest pain, Uncontrolled pain Home Medications: Medications to take at Discharge Levothyroxine Sodium [Synthroid] 75 mcg PO DAILY 10/09/16 Vitamin B-12 1,000 mcg PO DAILY 10/09/16 Lisinopril/Hydrochlorothiazide [Zestoretic 20/12.5 Tablet] 1 tablet PO DAILY 10/15/18 Nystatin Powder [Mycostatin Powder] 1 applic TOPICAL DAILY PRN 10/15/18 Calcium Carbonate/Vitamin D3 [Caltrate 600 Plus D3 Tablet] 1 tab PO DAILY 01/26/19 Menthol/Lanolin/Calamine/Znox [Calmoseptine Ointment] 1 applic TOPICAL 0600,2200 01/26/19 Polyethylene Glycol 3350 [Miralax] 17 gm PO DAILY PRN 01/26/19 Senna/Docusate Sodium [Senokot-S] 1 tablet PO BID PRN 01/26/19 Mineral Oil/Petrolatum,White [Eucerin] 1 applic TOPICAL 2200 jar 02/05/19 Oxycodone [Oxyir] 5 mg PO Q4H PRN PRN 7 Days #30 tab 02/05/19 Potassium Chloride 10 meq PO DAILY #30 tablet.er 02/05/19 Following Prescrptions Were Given to Patient: Oxycodone [Oxyir] 5 mg PO Q4H PRN PRN 7 Days #30 tab PRN Reason: Moderate Pain (4-5/10) Prescription Printed Potassium Chloride 10 meq PO DAILY #30 tablet.er Transmission Status: Pending to [facility]/pharmacy #[id number] Primary Care Physician: [facility] Doctor,Out of [Primary Care Provider] - Please Follow Up With: Dr. Russell When: Daughter will transport Disposition: Home with Home Health Minutes spent on discharge:: 35 Patient Condition:: Good Medical Necessity - Tobacco Use Smoking Status: Never smoker Tobacco Use: Non-smoker Meaningful Use Info Meaningful Use Diagnoses (Choose all that apply): None applicable
--- NOTE | 2019-02-05 20:33 | PCM.PN.HH ---
Home Health Note - Plan Overview of reason of hospitalization: The patient is a 83 year old Female with below past medical history hospitalized for ORIF C2 fracture, admitted to TCU with debility, here for rehabilitation, strengthening, prior to discharge home alone. Discharge home alone, Home Health Care for PT. Problems: Patient was seen for Hypertension (Chronic) Calcium deficiency (Chronic) Muscle spasm (Chronic) Hypokalemia (Chronic) Complete List of Medical Problems Fall (Acute) Dens fracture (Acute) Diverticulosis (Chronic) Hypertension (Chronic) Calcium deficiency (Chronic) Muscle spasm (Chronic) Hypokalemia (Chronic) Hypothyroidism (Chronic) Vitamin B12 deficiency (Chronic) Vitamin D deficiency (Chronic) Shortness of breath (Chronic) Dehydration (Acute) Acute kidney injury (Acute) Debility (Acute) - Requirements and Reasons Disciplines Needed/Ordered: Physical Therapy Reason for Disciplines: Disease Specific Monitoring/education, Gait Training, Stair Training, Fall Prevention, Home Safety/Equipment Instruction, Balance and/or Posture Training, Transfer Training Related To: Change in Medical Treatment Plan, Physical Impairments, Unsteady Gait/Balance, Fall Risk Patient is unable to leave the home: Without Aid of Supportive Devices (crutches, cane, wheelchair, walker), Without the assistance of another person
[2019-02-06] MEDS: hydroCHLOROthiazide 12.5mg 12.5 MG PO (06:30)
[2019-02-06] MEDS: Cyanocobalamin 500 MCG Tablet 1000 MCG PO (06:31)
[2019-02-06] MEDS: Menthol/Lanolin/Calamine/Znox 113 GM Tube 1 APPLIC TOPICAL ×2 (06:31→20:15)
[2019-02-06] MEDS: Levothyroxine 75 MCG Tablet PO (06:31)
[2019-02-06] MEDS: Nystatin Powder 15gm Bottle 1 APPLIC TOPICAL ×2 (06:31→20:15)
[2019-02-06] MEDS: Lisinopril 20 MG Tablet PO (06:31)
[2019-02-06] MEDS: Polyethylene Glycol 3350 17 GM PACKET PO (06:31)
[2019-02-06] MEDS: oxyCODONE 5 MG Tablet PO ×2 (06:36→18:19)
[2019-02-06] MEDS: Calcium Carb/Vitamin D 1 TABLET Tablet PO (07:38)
--- NOTE | 2019-02-06 09:46 | CASEMGMT ---
Social Work BIMS and PHQ-9 completed on this date for MDS assessment. Ondina Lr MSW RETAIL TRAINING MANAGER
[2019-02-06 15:40] VITALS: BP 119/58; PULSE 78; RESP 18; TEMP 36.6; O2SAT 96
[2019-02-07] MEDS: Menthol/Lanolin/Calamine/Znox 113 GM Tube 1 APPLIC TOPICAL (06:04)
[2019-02-07] MEDS: Nystatin Powder 15gm Bottle 1 APPLIC TOPICAL (06:04)
[2019-02-07] MEDS: hydroCHLOROthiazide 12.5mg 12.5 MG PO (06:04)
[2019-02-07] MEDS: Lisinopril 20 MG Tablet PO (06:04)
[2019-02-07] MEDS: Levothyroxine 75 MCG Tablet PO (06:04)
[2019-02-07] MEDS: Cyanocobalamin 500 MCG Tablet 1000 MCG PO (06:04)
[2019-02-07] MEDS: Calcium Carb/Vitamin D 1 TABLET Tablet PO (08:07)
[2019-02-07] MEDS: oxyCODONE 5 MG Tablet PO (12:39)
[2019-02-07 15:48] VITALS: BP 107/47; PULSE 79; RESP 16; TEMP 36.2; O2SAT 97
[2019-02-07 18:35] VITALS: BP 107/47; PULSE 67; RESP 16; TEMP 36.2; O2SAT 97
--- NOTE | 2019-02-09 10:21 | CASEMGMT ---
Insurance Notified insurance of d/c home with [facility] PT/OT/COUCH on 02/07/19. Auth# [id number] NOLAN Oakes
== END 2019-02-07 16:45 | disposition home or self-care (01) | DRG 566 ==
PROVIDERS: Admitting Provider Family Medicine Geriatric Medicine; Referring Provider Family Medicine Geriatric Medicine; Visit Provider Family Medicine Geriatric Medicine
DX: S12.110K Anterior displaced Type II dens fracture, subsequent encounter for fracture with nonunion (principal); X58.XXXD Exposure to other specified factors, subsequent encounter; I10 Essential (primary) hypertension; E03.9 Hypothyroidism, unspecified; E55.9 Vitamin D deficiency, unspecified; B35.4 Tinea corporis; E87.6 Hypokalemia; E53.8 Deficiency of other specified B group vitamins
CPT/HCPCS: 36415; 80048; 85025; 97032; 97110; 97116; 97163; 97166; 97530; 97535; 97802

== ENCOUNTER 2019-04-05 18:20 | Emergency (ER) | payer MEDICARE, SELFPAY ==
[2019-04-05 18:22] VITALS: BP 160/74; PULSE 75; RESP 18; TEMP 36.9; O2SAT 95; BMI 41.6
[2019-04-05 18:35] VITALS: RESP 18
--- NOTE | 2019-04-05 18:49 | ED.VIS.GEN ---
History of Present Illness Chief Complaint: Wound Detail of Chief Complaint: redness around surgical sites Informant: Patient, Family Onset: Days - 2 Context: Gradual Onset Timing: Continuous Quality: sore Location: left ankle/leg, right forearm Current Severity: Moderate Maximum Severity: Moderate Worsened by: palpation, walking Relieved by: rest Associated Symptoms: discharge from LUE wound that busted open Narrative: Patient had dermatological lesions excised from her left lower leg/ankle and left forearm. This was 4 days ago. 2 days ago she was reevaluated in the office and told that everything was looking pretty good. She has been taking care of the wounds, keeping them clean, keeping bacitracin on them. She states they have become red and sore and swollen. She denies any fevers or systemic symptoms. She had neck surgery couple months ago, that is not bothering her. She is not a diabetic. - Past Medical History (1) Debility Status: Chronic (2) Diverticulosis Status: Chronic (3) Hypertension Status: Chronic (4) Hypothyroidism Status: Chronic (5) Vitamin B12 deficiency Status: Chronic (6) Vitamin D deficiency Status: Chronic Past Medical History - Allergies and Home Meds Allergies/Adverse Reactions: Allergies acetaminophen [From Vicodin] Allergy (Verified 04/05/19 18:21) Other azithromycin [From Zithromax Z-Krishna] Allergy (Verified 04/05/19 18:21) Other doxycycline Allergy (Verified 04/05/19 18:21) Other hydrocodone [From Vicodin] Allergy (Verified 04/05/19 18:21) Other Penicillins Allergy (Verified 04/05/19 18:21) Rash Tetanus Vaccines and Toxoid Allergy (Verified 04/05/19 18:21) Rash adhesive tape Adverse Reaction (Verified 04/05/19 18:21) Rash aspirin [ASA] Adverse Reaction (Verified 04/05/19 18:21) Other Primary Care Physician: [facility] Doctor,Out of [Primary Care Provider] - Surgical History: cataract - Left., herniorrhaphy, hysterectomy, total knee arthroplasty - Bilateral, - - ORIF right lower extremity, nasal surgery, cystocele, Hemorrhoidectomy, Thyroid surery, Rectocele, ORIF C2 fracture. Smoking Status: Never smoker Drugs: None - Family History Maternal Family History: Reports: No pertinent history Paternal Family History: Reports: No pertinent history Review of Systems General: Denies: Chills, Fever, Malaise, Sweats Musculoskeletal: Reports: Swelling - Locally at wounds, Extremity Pain Skin: Reports: Wounds - See HPI Neurological: Denies: Headache, Weakness, Numbness Physical Exam Vital Signs/Narrative: Vital Signs Temp Pulse Resp BP Pulse Ox 04/05/19 18:35 18 04/05/19 18:22 98.4 F 75 18 160/74 H 95 Inital Vital Signs reviewed: Yes General: Well nourished, Well developed, Obese, No Acute Distress - Well-appearing, conversive Extremities: Tenderness - At surgical sites, see skin exam. Full range of motion all joints without difficulty. Skin: Rash - Small pustule left medial ankle with approximately 6-8 cm diameter surrounding tender erythema, but mostly tender in the center. The pustule easily unroofed, there is a scant amount of discharge, there is no further expressible discharge. There is some localized swelling around it, but no fluctuance or sign of an abscess. The swelling is more dependent, closer to the heel, which is at the periphery of the erythema. The other wound is on the left dorsal forearm, there are sutures present but the entire wound is dehisced and the sutures are broken open, there is a scant amount of purulent material within the wound, which is about a centimeter deep, and it is about 2-3 cm in diameter/length, with another approximately 2 cm diameter erythema surrounding it, all of which is mildly tender. There is no further expressible discharge from it. No lymphangitis in either extremity. Neurological: Alert, Oriented x3, Cranial nerves II-XII grossly intact, Normal Strength, Normal Sensation, Normal Gait Psychological: Normal affect, Normal Mood Diagnostic/Tx/Re-eval - Medical Decision Making The wounds were cleansed thoroughly and dressed with bacitracin, and with regards to the open dehisced wound of the left upper extremity, wet-to-dry dressings. We discussed dressing changes until she follows up. She was given a dose of vancomycin 50 mg/kg, and placed on Keflex. I do not think testing will be of benefit right now, none of this is abscessed, or amenable to any aspiration/drainage. I discussed this with patient and family. The left upper extremity wound will need to heal by secondary intent, certainly I think antibiotics are warranted. I remove the sutures that were no longer holding anything together. Encouraged to return for worsening symptoms or fevers if she develops them prior to following up. She understands and is comfortable with that plan. Procedures Procedure(s): Suture removal, left upper extremity dehisced wound --3 nylon sutures gently cut with an 11 blade and removed without any pain or difficulty/complication. Prepped with isopropanol prior. ED Disposition - Plan for ED Patient: Disposition: Home or Assisted Living Diagnosis: Wound infection following procedure Instructions: ED Wound Infection after surgery, Dressing Change Prescriptions: Cephalexin [Keflex] 500 mg PO 4X/DAY #40 cap Transmission Status: Pending to [facility]/pharmacy #[id number] Referrals: [facility] [address] Doctor,Out of [Primary Care Provider] - caitlyn owusu [Other] (Call Saturday morning for follow-up appointment as soon as possible this week)
[2019-04-05 22:07] VITALS: PULSE 65; RESP 18; O2SAT 96
== END 2019-04-05 22:08 | disposition home or self-care (01) ==
PROVIDERS: Emergency Provider Emergency Medicine
DX: T81.49XA Infection following a procedure, other surgical site, initial encounter (principal); T81.31XA Disruption of external operation (surgical) wound, not elsewhere classified, initial encounter; I10 Essential (primary) hypertension; E03.9 Hypothyroidism, unspecified; E55.9 Vitamin D deficiency, unspecified; E53.8 Deficiency of other specified B group vitamins; E66.9 Obesity, unspecified; Z88.6 Allergy status to analgesic agent; Z88.5 Allergy status to narcotic agent; Z88.1 Allergy status to other antibiotic agents; Z88.0 Allergy status to penicillin; Z90.710 Acquired absence of both cervix and uterus
CPT/HCPCS: 96365; 96366; 99283; J7040; J7050; A4216

== ENCOUNTER 2021-07-03 05:34 | Day surgery (SDC) | payer MEDICARE, SELFPAY ==
--- NOTE | 2021-07-03 | IMM_PTH ---
PATIENT: EMEKA VUONG LOC: EN U#:[id number] AGE/SX: 85/F ROOM: RE07/03/[address]: Dr. Andrew Felder DO : 1935 BED: DIS: 07/03/2021 SPEC #: [id number] RECD: 07/04/21 14:36 STATUS: TYREE WADE #: [id number] TARA: 07/03/21 00:[address]: Andrew Felder DEPT: IMMUNOHISTOCHEMISTRY RECD BY: Kassi Mota Tissues: B - Esophagus, NOS Procedures: P53 (initial) KI-67 (add) PHYSICIAN & INSTITUTION [place] [id number] SPECIMEN INFORMATION: Tissue Source: B ? Distal esophagus biopsy Clinical Info: GI bleed Specimen Number: [id number] CPT code: 26265, 68352 METHODOLOGY: Deparaffinized sections of prefer/formalin-fixed tissue or PAP/DQ stained slides are incubated with monoclonal/polyclonal antibodies/oligonucleotide probes. Localization is made via biotin free immunoperoxidase method. Appropriate controls are performed and reacted as expected. Results on target cell population are indicated in the following table: RESULTS: ANTIBODY / CLONE RESULT Block B P53 (DO-7) negative Ki-67 (30-9) positive, low These tests were developed and their performance characteristics determined by [facility]. They may not have been cleared or approved by the U.S. Food and Drug Administration. The FDA has determined that such clearance or approval is not necessary. The above immunohistochemical/dualISH markers are ordered and reviewed by the Pathologist. INTERPRETATION: B. Distal esophagus, biopsy: No evidence of dysplasia AM:betsy 07/05/21
--- NOTE | 2021-07-03 | EGD_PTH ---
PATIENT: EMEKA VUONG LOC: EN U#:[id number] AGE/SX: 85/F ROOM: RE07/03/[address]: Dr. Andrew Felder DO : 1935 BED: DIS: 07/03/2021 SPEC #: [id number] RECD: 07/03/21 12:39 STATUS: TYREE OLVERA #: [id number] TARA: 07/03/21 00:[address]: Andrew Felder DEPT: SURGICAL PATHOLOGY RECD BY: Cristian Koo Tissues: A - Duodenum, NOS B - Esophageal mucous membrane Procedures: Special Stain Group II Surgery Specimen Level IV Alcian Blue/PAS (control) HEADER OPERATION: EGD, colonoscopy PRE-OP DIAGNOSIS: GI bleed TISSUE SUBMITTED: A ? Duodenal ulcer biopsy, B ? Distal esophagus biopsy MICROSCOPIC DIAGNOSIS A. Duodenal ulcer, biopsy: Mild Magdalena?s gland hyperplasia and minimal nonspecific chronic inflammation. B. Distal esophagus, biopsy: Fragments of gastric mucosa with mild chronic inflammation. 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 No evidence of dysplasia. See comment. AM:gin 07/04/2021 COMMENT B. Immunohistochemistry ([id number]) for P53 and Ki-67 will be performed and results will be reported separately. Alcian blue/PAS stain with matched control supports the above diagnosis. MICROSCOPIC DESCRIPTION Slides are reviewed. GROSS DESCRIPTION A - Received in fixative is one container labeled with the patient's name and designated duodenal ulcer biopsy. The specimen consists of one irregular fragment of light stevenson soft tissue that measures 0.3 x 0.3 x 0.1 cm. The specimen is totally submitted in one cassette. B - Received in fixative is one container labeled with the patient's name and designated distal esophagus biopsy. The specimen consists of two irregular fragments of light stevenson soft tissue that in aggregate measure 0.6 x 0.3 x 0.1 cm. The specimen is totally submitted in one cassette. / SJ:gin 07/03/21 TC:3 CPT: 48917 x2, 48731
[2021-07-03 06:05] VITALS: BP 138/64; PULSE 73; RESP 22; TEMP 36.8; O2SAT 96; BMI 36.6
[2021-07-03] MEDS: Lactated Ringers 1,000 ML 15 ML IV (06:15)
--- NOTE | 2021-07-03 06:34 | HP.PCM_ITS ---
History and Physical Date of Admission: 07/03/21 [facility] Chief Complaint: neck fx Details: EMEKA VUONG, is a 85 F who presents to the office today for lower GI bleeding. She is never seen blood in her stool before this event. The blood initially started off black and it became light red. She does take Motrin for arthritis pain and on occasion she does take steroids for arthritis pain. On her last colonoscopy 10 years ago she did have polyps and she was discovered to have diverticular disease. She does also have a history of chronic constipation in which she takes MiraLAX on occasion. She does not take it on a daily basis. She has no family history of GI malignancy. Her weight has been stable. Her diet has not changed. As per her daughter, she did get a hemoglobin checked and it was within normal range. Last Saturday she began having blood in her stool. PCP sent her for bloodwork and referred her to our department. Bowel movements continue to be regular with timing and consistency. History of surgical repair of rectocele rectum. Last colonoscopy 2009 with normal results. History of diverticulosis. Scheduled for colonoscopy and EGD Saturday. ROS ENT ENT: Positive for nosebleed/epistaxis Cardio Cardiology: Positive for shortness of breath and dyspnea on exertion Gastro GI: Positive for bloating and Black,tarry stools Musc Musculoskeletal: Positive for abnormal gait, joint pain, back pain, joint swelling, muscle weakness, stiffness, Arthritis and leg pain at night Neuro Neurology: Positive for abnormal gait Exam Const General: cooperative and comfortable Nutritional Appearance: average body habitus and well nourished [facility] Head: normal to inspection Ears: hearing grossly normal bilaterally Nose: external nose normal Face and sinus: normal facial exam Mouth: oral mucosae normal Throat: posterior oropharynx normal Eyes General: appearance normal, both eyes and all related structures Neck Neck: normal visual inspection Chest Chest palpation & inspection: normal inspection of the chest and normal palpation of entire chest wall Resp Effort & Inspection: normal respiratory effort Auscultation: Bilateral: Clear to Auscultation Cardio Palpation: normal PMI Rate: regular rate Rhythm: regular rhythm GI Inspection: normal to inspection Auscultation: normal bowel sounds Percussion: normal to percussion Palpation: no hepatosplenomegaly Skin General: no rashes or lesions noted Neuro General: patient alert Extrem General: normal to inspection Psych Affect: normal affect Quality Reporting Tobacco Screening (CMS 138) Smoking Status: Never smoker Assessment and Plan Assessment and Plan (1) GI bleed: Status: Acute Orders: Orders: Colonoscopy Today EGD Today Plan - Dr. Morales Friend, DO: She will undergo an upper and lower endoscopy to evaluate her upper lower GI tract. The different diagnosis for lower GI bleed and then elderly woman would be diverticulosis, hemorrhoidal bleeding, stercoral ulcer, upper GIB rapid transit and arteriovenous malformation. Also because she does have a history of polyps and has been 10 years neoplasia is on the differential diagnosis for GI bleed. There are no changes noted since the patient was seen in the office.
--- NOTE | 2021-07-03 06:56 | OP.EGD_ITS ---
Patient Name: Vanessa Quesada Procedure Date: 07/03/2021 6:21 AM Date of : 1935 Age: 85 Procedure: Upper GI endoscopy Indications: Acute post hemorrhagic anemia Providers: Andrew Felder DO Medicines: See the Anesthesia note for documentation of the administered medications Patient Profile: This is an 85 year old female. Refer to note in patient chart for documentation of history and physical. Patient has symptoms of acute epigastric abdominal pain. Complications: No immediate complications. Procedure: Pre-Anesthesia Assessment: - Prior to the procedure, a History and Physical was performed, and patient medications and allergies were reviewed. The patient is competent. The risks and benefits of the procedure and the sedation options and risks were discussed with the patient. All questions were answered and informed consent was obtained. Patient identification and proposed procedure were verified by the physician in the pre-procedure area. Mental Status Examination: alert and oriented. Airway Examination: normal oropharyngeal airway and neck mobility. Respiratory Examination: clear to auscultation. CV Examination: normal. Prophylactic Antibiotics: The patient does not require prophylactic antibiotics. Prior Anticoagulants: The patient has taken no previous anticoagulant or antiplatelet agents. ASA Grade Assessment: II - A patient with mild systemic disease. After reviewing the risks and benefits, the patient was deemed in satisfactory condition to undergo the procedure. The anesthesia plan was to use moderate sedation / analgesia (conscious sedation). Immediately prior to administration of medications, the patient was re-assessed for adequacy to receive sedatives. The heart rate, respiratory rate, oxygen saturations, blood pressure, adequacy of pulmonary ventilation, and response to care were monitored throughout the procedure. The physical status of the patient was re-assessed after the procedure. After obtaining informed consent, the endoscope was passed under direct vision. Throughout the procedure, the patient's blood pressure, pulse, and oxygen saturations were monitored continuously. The gastroscope was introduced through the and advanced to the. The gastroscope was introduced through the mouth, and advanced to the second part of duodenum. The upper GI endoscopy was accomplished without difficulty. The patient tolerated the procedure well. Moderate Sedation: Moderate (conscious) sedation was administered by the endoscopy nurse and supervised by the endoscopist. The patient's oxygen saturation, heart rate, blood pressure and response to care were monitored. Total physician intraservice time was 15 minutes. Scope In: 6:45:35 AM Scope Out: 6:52:11 AM Total Procedure Duration Time 0 hours 6 minutes 36 seconds Findings: LA Grade A (one or more mucosal breaks less than 5 mm, not extending between tops of 2 mucosal folds) esophagitis with no bleeding was found 34 to 35 cm from the incisors. Biopsies were taken with a cold forceps for histology. Verification of patient identification for the specimen was done. Estimated blood loss was minimal. A large hiatal hernia was present. The exam was otherwise without abnormality. Two non-bleeding linear duodenal ulcers with no stigmata of bleeding were found in the first portion of the duodenum. The largest lesion was 6 mm in largest dimension. Biopsies were taken with a cold forceps for histology. Verification of patient identification for the specimen was done. Estimated blood loss was minimal. Impression: - LA Grade A reflux esophagitis. Rule out Chan's esophagus. Biopsied. - Large hiatal hernia. - The examination was otherwise normal. - Multiple non-bleeding duodenal ulcers with no stigmata of bleeding. Biopsied. Recommendation: - Discharge patient to home. - Use misoprostol 100 micrograms PO QID for 4 weeks. - Continue present medications. Procedure Code(s): --- Professional --- 75040, Esophagogastroduodenoscopy, flexible, transoral; with biopsy, single or multiple G0500, Moderate sedation services provided by the same physician or other qualified health health care sanitary technician performing a gastrointestinal endoscopic service that sedation supports, requiring the presence of an independent trained observer to assist in the monitoring of the patient's level of consciousness and physiological status; initial 15 minutes of intra-service time; patient age 5 years or older (additional time may be reported with 36413, as appropriate) CPT copyright 2017 [employer] [place] [employer]. All rights reserved. The codes documented in this report are preliminary and upon refrigeration systems installer review may be revised to meet current compliance requirements. Andrew Felder DO 07/03/2021 6:56:11 AM This report has been signed electronically. Number of Addenda: 1 Note Initiated On: 07/03/2021 6:21 AM Addendum Number: 1 Addendum Date: 04/13/2022 6:30:35 AM MAC was used instead of moderate sedation for this patient. Andrew Felder DO 04/13/2022 6:30:42 AM This report has been signed electronically.
[2021-07-03 07:30] VITALS: BP 103/63; BP 138/64; PULSE 72; RESP 16; TEMP 36.2; O2SAT 96
--- NOTE | 2021-07-03 07:31 | OP.COLON_ITS ---
Patient Name: Vanessa Quesada Procedure Date: 07/03/2021 6:56 AM Date of : 1935 Age: 85 Procedure: Colonoscopy Indications: Acute post hemorrhagic anemia Providers: Andrew Felder DO Medicines: See the Anesthesia note for documentation of the administered medications Patient Profile: This is an 85 year old female. Refer to note in patient chart for documentation of history and physical. Patient has symptoms of acute epigastric abdominal pain. Last Colonoscopy: several years ago. Complications: No immediate complications. Procedure: Pre-Anesthesia Assessment: - Prior to the procedure, a History and Physical was performed, and patient medications and allergies were reviewed. The patient is competent. The risks and benefits of the procedure and the sedation options and risks were discussed with the patient. All questions were answered and informed consent was obtained. Patient identification and proposed procedure were verified by the physician in the pre-procedure area. Mental Status Examination: alert and oriented. Airway Examination: normal oropharyngeal airway and neck mobility. Respiratory Examination: clear to auscultation. CV Examination: normal. Prophylactic Antibiotics: The patient does not require prophylactic antibiotics. Prior Anticoagulants: The patient has taken no previous anticoagulant or antiplatelet agents. ASA Grade Assessment: II - A patient with mild systemic disease. After reviewing the risks and benefits, the patient was deemed in satisfactory condition to undergo the procedure. The anesthesia plan was to use moderate sedation / analgesia (conscious sedation). Immediately prior to administration of medications, the patient was re-assessed for adequacy to receive sedatives. The heart rate, respiratory rate, oxygen saturations, blood pressure, adequacy of pulmonary ventilation, and response to care were monitored throughout the procedure. The physical status of the patient was re-assessed after the procedure. After I obtained informed consent, the scope was passed under direct vision. Throughout the procedure, the patient's blood pressure, pulse, and oxygen saturations were monitored continuously. The Colonoscope was introduced through the anus and advanced to the cecum, identified by appendiceal orifice and ileocecal valve. The colonoscopy was performed without difficulty. The patient tolerated the procedure well. The quality of the bowel preparation was good. Moderate Sedation: Moderate (conscious) sedation was administered by the endoscopy nurse and supervised by the endoscopist. The patient's oxygen saturation, heart rate, blood pressure and response to care were monitored. Total physician intraservice time was 15 minutes. Scope In: 7:00:08 AM Scope Withdrawal Time 0 hours 4 minutes 36 seconds Scope Out: 7:21:11 AM Total Procedure Duration Time 0 hours 21 minutes 3 seconds Findings: The perianal and digital rectal examinations were normal. Multiple small and large-mouthed diverticula were found in the entire colon. There was narrowing of the colon in association with the diverticular opening. There was evidence of diverticular spasm. Erythema was seen in association with the diverticular opening. There was evidence of an impacted diverticulum. Two medium-sized localized angiodysplastic lesions with stigmata of recent bleeding were found in the cecum. Coagulation for bleeding prevention using heater probe was successful. Estimated blood loss was minimal. Impression: - Severe diverticulosis in the entire examined colon. There was narrowing of the colon in association with the diverticular opening. There was evidence of diverticular spasm. Erythema was seen in association with the diverticular opening. There was evidence of an impacted diverticulum. - Two recently bleeding colonic angiodysplastic lesions. Treated with a heater probe. - No specimens collected. Recommendation: - Discharge patient to home. - Resume regular diet. - Continue present medications. - Await pathology results. - Repeat colonoscopy PRN for screening purposes. - Return to GI office in 2 weeks. Procedure Code(s): --- Professional --- 60568, Colonoscopy, flexible; with control of bleeding, any method G0500, Moderate sedation services provided by the same physician or other qualified health hospice care sales consultant performing a gastrointestinal endoscopic service that sedation supports, requiring the presence of an independent trained observer to assist in the monitoring of the patient's level of consciousness and physiological status; initial 15 minutes of intra-service time; patient age 5 years or older (additional time may be reported with 27047, as appropriate) CPT copyright 2017 [employer]. All rights reserved. The codes documented in this report are preliminary and upon qa automation developer review may be revised to meet current compliance requirements. Andrew Felder DO 07/03/2021 7:30:41 AM This report has been signed electronically. Number of Addenda: 1 Note Initiated On: 07/03/2021 6:56 AM Addendum Number: 1 Addendum Date: 04/13/2022 6:30:55 AM MAC was used instead of moderate sedation for this patient. Andrew Felder DO 04/13/2022 6:31:00 AM This report has been signed electronically.
[2021-07-03 07:35] VITALS: BP 105/66; BP 138/64; PULSE 69; RESP 16; O2SAT 95
[2021-07-03 07:40] VITALS: BP 109/62; BP 138/64; PULSE 73; RESP 16; O2SAT 95
[2021-07-03 07:45] VITALS: BP 115/67; BP 138/64; PULSE 72; RESP 16; TEMP 36.1; O2SAT 97
[2021-07-03 08:39] VITALS: BP 138/64
== END 2021-07-03 08:58 ==
LOC: EN 05:35 → AC 05:36
PROVIDERS: Visit Provider Internal Medicine Gastroenterology
PROC: 0DJD8ZZ Inspection of Lower Intestinal Tract, Via Natural or Artificial Opening Endoscopic (ICD-10-PCS; CPT 45378; principal; 2021-07-03 06:25)
DX: K55.21 Angiodysplasia of colon with hemorrhage (principal); K26.4 Chronic or unspecified duodenal ulcer with hemorrhage; K44.9 Diaphragmatic hernia without obstruction or gangrene; K21.00 Gastro-esophageal reflux disease with esophagitis, without bleeding; K57.31 Diverticulosis of large intestine without perforation or abscess with bleeding; K29.51 Unspecified chronic gastritis with bleeding; D62 Acute posthemorrhagic anemia; K59.09 Other constipation; I10 Essential (primary) hypertension; E89.0 Postprocedural hypothyroidism; M19.90 Unspecified osteoarthritis, unspecified site; Z79.890 Hormone replacement therapy; Z79.899 Other long term (current) drug therapy; Z86.010 Personal history of colon polyps
CPT/HCPCS: 43239; 45382; 88305; 88313; 88341; 88342; J7120; J2405

== ENCOUNTER → 2021-07-14 16:25 | Outpatient (CLI) | payer MEDICARE, SELFPAY ==
[2021-07-14 17:19] LABS: Absolute Lymphocyte Count 1.96 X10^3/uL (0.83-4.51); Absolute Neutrophil Count 7.5 X10^3/uL (2.0-7.7); Basophil# 0.06 X10^3/uL; Basophil% 0.6 % (0-1); Eosinophil# 0.23 X10^3/uL; Eosinophils% 2.2 % (0-5); Hematocrit 35.1 % (37-47); Hemoglobin 11.2 g/dL (12.0-15.0); Lymphocyte # 1.96 X10^3/ul (0.83-4.51); Lymphocyte % 18.5 % (19-41); Mean Corp Hgb Conc 31.9 g/dL (32-36); Mean Corpuscular Hgb 27.3 pg (27.0-32.0); Mean Corpuscular Volume 85.4 fL (81-99); Mean Platelet Vol. 8.9 fl (6.2-12.0); Monocyte# 0.79 X10^3/uL; Monocyte% 7.5 % (0-10); NRBC Flagged by Analyzer 0 % (0-5); Neutrophil # 7.51 X10^3/uL (2.7-7.7); Neutrophil % 70.8 % (47-70); Platelet Count 326 K/mm3 (150-450); RBC Distribution Width CV 15.1 % (11.6-14.6); RBC Distribution Width SD 47.5 fl (35.1-43.9); Red Blood Count 4.11 M/mm3 (4.2-5.4); White Blood Count 10.6 K/mm3 (4.4-11.0)
[2021-07-14 17:59] LABS: Ferritin 49 ng/mL (8-252); Iron 26 ug/dL (50-170); Iron Binding Capacity,Total 358 ug/dL (250-450); PERCENT IRON SATURATION 7.3 % (15.0-55.0)
[2021-07-14 18:02] LABS: Vitamin B12 773 pg/mL (211-911)
== END ==
PROVIDERS: Visit Provider Internal Medicine Gastroenterology
DX: D64.9 Anemia, unspecified (principal); R53.81 Other malaise
CPT/HCPCS: 36415; 82607; 82728; 83540; 83550; 85025

== ENCOUNTER 2022-12-03 12:51 | Observation (INO) | payer MEDICARE, SELFPAY ==
[2022-12-03 12:52] VITALS: BP 154/84; PULSE 107; RESP 18; TEMP 36.3; O2SAT 94; BMI 40.5
--- NOTE | 2022-12-03 13:33 | VDLE_ITS ---
Reason For Study: Swelling RIGHT LEFT GSV is normal. GSV is normal. CFV is compressible, spontaneous, phasic, CFV is compressible, spontaneous, phasic, competent and demonstrates normal competent, and demonstrates normal augmentation. augmentation. FV is compressible, spontaneous, phasic, FV is compressible, spontaneous, phasic, competent and demonstrates normal competent and demonstrates normal augmentation. augmentation. POP V is compressible, spontaneous, phasic, PopV is partially compressible with bright competent and demonstrates normal inrtraluminal echoes consistent with Chronic augmentation. DVT. Normal venous flow noted. T/P Trunk is compressible. T/P Trunk is compressible. PTV is compressible. PTV is compressible. RT PerV is compressible. LT PerV is compressible. Procedure This is a venous duplex using B-mode, color flow and spectral Doppler. Exam performed portable in ED. A preliminary report was called and/or faxed to Dr. Mishra. VL/Venous Duplex US - Jason Extrem Interpretation Summary There is no evidence of right lower extremity deep vein thrombosis. Partial com pressibility of the left popliteal vein suspicious for chronic deep venous thrombosis. No additiona l focal abnormality left lower extremity. Patent and compressible bilateral great saphenous veins. Clinical correlation would be helpful. Ordering Physician: Calixto Mishra Performed By: Olga Savage RVT
--- NOTE | 2022-12-03 13:34 | ED.VIS.LOWEX ---
HPI History of Present Illness Chief Complaint: Lower Extremity Injury Informant: patient and family (daughter) Narrative Narrative: Patient with swelling, pain, redness to the left lower leg for about the past month. Finished a course of clindamycin for this, supposing cellulitis which she has had before, and this feels like it, did not take care of it so she was then put on Bactrim, she is down to just a couple of pills of that course and since nothing is better she was directed here to the emergency department. She states for the last couple weeks now, starting later than the left lower leg, the right lower leg is getting swollen and erythematous although it is not hurting. She denies any fevers, chills, dyspnea with exertion or orthopnea, or any other systemic symptoms just the legs. She states normally, she has no edema and no erythema on either lower extremity but has had cellulitis from time to time, maybe a couple times a year. [facility] Medical History Alcohol use Anemia Arthritis Bladder cystocele Easy bruising Femur fracture Heartburn Hemorrhoids Hernia History of diverticulitis History of edema History of pain when walking Hx of cataract Hypertension Injury of head and neck Loss of hearing Low iron Migraine headache Non-smoker Rectocele Thyroid disease Wears partial dentures Home Medications levothyroxine 75 mcg tablet (Synthroid) 75 mcg PO DAILY thyroid 10/09/16 [History Last Taken 07/03/21] polyethylene glycol 3350 17 gram oral powder packet 17 g PO DAILY PRN Constipation 01/26/19 [History Last Taken 01/26/19 08:57] pantoprazole 40 mg tablet,delayed release 40 mg PO DAILY 12/03/22 [History Last Taken Unknown] spironolactone 100 mg tablet 100 mg PO DAILY 12/03/22 [History Last Taken Unknown] vitamin B complex 1 tab PO DAILY 12/03/22 [History Last Taken Unknown] Allergy/AdvReac Type Severity Reaction Status Date / Time acetaminophen [From Vicodin] Allergy Other Verified 12/03/22 12:55 azithromycin Allergy Other Verified 12/03/22 12:55 [From Zithromax Z-Krishna] doxycycline Allergy Other Verified 12/03/22 12:55 hydrocodone [From Vicodin] Allergy Other Verified 12/03/22 12:55 Penicillins Allergy Rash Verified 12/03/22 12:55 Tetanus Vaccines and Toxoid Allergy Rash Verified 12/03/22 12:55 adhesive tape AdvReac Rash Verified 12/03/22 12:55 aspirin [ASA] AdvReac Other Verified 12/03/22 12:55 Surgical History H/O thyroidectomy H/O: hysterectomy Hx of colonoscopy Hx of fusion of cervical spine Hx of hemorrhoidectomy Hx of sinus surgery Total knee replacement status Social History Smoking Status: Never smoker ROS ROS ED Constitutional Constitutional ED: Denies chills or fever(s) Cardiovascular Cardiovascular: Denies chest pain or orthopnea Respiratory/Chest Respiratory/Chest: Denies dyspnea, dyspnea on exertion or orthopnea Musculoskeletal Musculoskeletal: Reports extremity pain; Denies neck pain Integumentary Denies Abrasions, rash or wounds Neurologic Neurologic: Denies paresthesias or weakness EXAM Physical Exam Const Vital Signs: 12/03/22 12:52 Temperature 97.4 F L Temperature Source Temporal Pulse Rate 107 H Respiratory Rate 18 Blood Pressure 154/84 H Blood Pressure Mean 107 Pulse Ox 94 Oxygen Delivery Method Room Air Positive well nourished, well developed and obese General Appearance ED: well developed and NAD Nutritional Appearance: obese Neck full ROM and supple Resp normal respiratory effort, no retractions and clear to auscultation bilaterally Cardio regular rate, regular rhythm and no murmurs Rate: Negative for tachycardic GI non-tender and non-distended Auscultation: normoactive bowel sounds Palpation: soft Back/Spine normal ROM and normal to inspection Extremity Extremity Narrative: Both lower extremities are edematous but low the knees, the left is worse. There is no calf tenderness bilaterally. There is erythema bilaterally in the lower leg, from about the mcfp tres down to the ankles, but more prominent and extensive on the left. The left is tender and warm, the right is nontender and not warm including the area that is erythematous. The erythema resembles chronic stasis dermatitis, however the patient and daughter state normally her leg does not look like that. Neurovascularly intact distally within the limits of the exam due to the edema in the left lower leg/foot. The foot is not erythematous. No problems bending the ankles and knees and the other joints of all 4 extremities. Neuro oriented x3, no focal motor deficits and no sensory deficits noted Sensorium / Orientation: alert Psych mental status grossly normal and thought process normal Skin no wounds Skin Narrative: See extremity exam for details of the legs. No other rashes. MDM MDM MDM Narrative Medical decision making narrative: I had a Doppler duplex ultrasound performed of both lower extremities venous systems, there are no evidence of an acute venous thromboembolism anywhere according to the preliminary interpretation by the procurement technician. I also did some blood work including a BNP, the latter of which was well within normal limits ruling out acute decompensated congestive heart failure. The patient appears to have the clinical appearance of chronic venous stasis but she and the daughter confirmed that this is all new and not chronic. Therefore although less common, I suppose it is possible that she has developed cellulitis on both lower extremities related to her edema which is probably due to venous stasis. Given her failure of outpatient treatment although she is not septic, and her history of allergies to multiple outpatient antibiotics including doxycycline, I started her on Invanz and I will seek admission. She does have some mild JUDE compared with her last creatinine although it was a couple years ago, which may or may not be related to her outpatient failure. Lab Data Attestation: I reviewed the patient's lab results. Labs: Laboratory Results - last 24 hr 12/03/22 12/03/22 12/03/22 13:45 13:45 13:45 WBC 9.1 RBC 4.28 Hgb 12.4 Hct 40.0 MCV 93.5 MCH 29.0 MCHC 31.0 L RDW Std Deviation 52.9 H RDW Coeff of Soo 15.5 H Plt Count 233 MPV 9.0 Immature Gran % (Auto) 0.500 Neut % (Auto) 78.3 H Lymph % (Auto) 12.8 L Guthrie % (Auto) 6.5 Eos % (Auto) 1.5 Baso % (Auto) 0.4 Absolute Neuts (auto) 7.1 Absolute Lymphs (auto) 1.17 Nucleated RBC % 0 Sodium 136 Potassium 5.1 Chloride 110 H Carbon Dioxide 22.0 Anion Gap 4 L BUN 33 H Creatinine 1.99 H Estim Creat Clear Calc 18.17 Est GFR (MDRD) Af Amer 31 L Est GFR (MDRD) Non-Af 25 L BUN/Creatinine Ratio 16.6 Glucose 93 Calcium 9.8 B-Natriuretic Peptide 25.2 Radiography Diagnostic Testing: Clinical Impression(s) from Imaging Studies Venous Doppler Study 12/03/22 13:33 Interpretation Summary There is no evidence of right lower extremity deep vein thrombosis. Partial compressibility of the left popliteal vein suspicious for chronic deep venous thrombosis. No additional focal abnormality left lower extremity. Patent and compressible bilateral great saphenous veins. Clinical correlation would be helpful. Ordering Physician: Calixto Mishra Performed By: Olga Savage RVT Discharge Plan Dx/Rx/DC Orders Clinical Impression: Bilateral lower leg cellulitis, Acute kidney injury, Failure of outpatient treatment Disposition Disposition: Acute Care Hospital [facility]
[2022-12-03 13:59] LABS: Absolute Lymphocyte Count 1.17 X10^3/uL (0.83-4.51); Absolute Neutrophil Count 7.1 X10^3/uL (2.0-7.7); Basophil# 0.04 X10^3/uL; Basophil% 0.4 % (0-1); Eosinophil# 0.14 X10^3/uL; Eosinophils% 1.5 % (0-5); Hemoglobin 12.4 g/dL (12.0-15.0); Lymphocyte # 1.17 X10^3/ul (0.83-4.51); Lymphocyte % 12.8 % (19-41); Mean Corpuscular Volume 93.5 fL (81-99); Monocyte# 0.59 X10^3/uL; Monocyte% 6.5 % (0-10); NRBC Flagged by Analyzer 0 % (0-5); Neutrophil # 7.14 X10^3/uL (2.7-7.7); Neutrophil % 78.3 % (47-70); Platelet Count 233 K/mm3 (150-450); RBC Distribution Width CV 15.5 % (11.6-14.6); RBC Distribution Width SD 52.9 fl (35.1-43.9); Red Blood Count 4.28 M/mm3 (4.2-5.4); White Blood Count 9.1 K/mm3 (4.4-11.0)
[2022-12-03 14:11] LABS: Anion Gap 4 (5-15); BUN 33 mg/dL (7-18); BUN/Creat Ratio 16.6 RATIO (10-20); Calcium,Total 9.8 mg/dL (8.5-10.1); Chloride 110 mmol/L (98-107); Creatinine, Serum 1.99 mg/dL (0.55-1.02); EST Glomerular Filtration Rate 25 mL/min (>60); Est Glom Filt Rate - Afr Amer 31 mL/min (>60); Estimated Creatinine Clearance 18.17 ml/min; Glucose 93 mg/dL (74-106); Potassium 5.1 mmol/L (3.5-5.1); Sodium Level 136 mmol/L (136-145)
[2022-12-03 14:17] LABS: BNP,B-Type NATRIURETIC PEPTIDE 25.2 pg/mL (0-100)
--- NOTE | 2022-12-03 15:41 | PCM.HP.STD ---
HPI - General General Date of Admission: 12/03/22 Date of Service: 12/03/22 Chief Complaint: Left lower extremity cellulitis HPI Narrative EMEKA VUONG, is a 86 F who presented to the emergency department at [facility] on 12/03/2022 with left lower extremity redness and swelling that has been ongoing since October. She has taken 2 rounds of oral antibiotics with no significant improvement and feels that it is slightly worsening. She has bilateral lower extremity edema which is not her baseline per discussion with her daughter. She previously finished a course of oral clindamycin and then was placed on oral Bactrim with only a couple of pills left and since nothing is better she was directed to come to the emergency department. She has mild discomfort in her left lower extremity however does not denies any acute pain. She denies any fever, chills, shortness of breath, orthopnea and states her only real complaint is her leg symptoms as noted above. Her daughter reports that her right leg is close to the baseline in appearance but her left lower extremity is markedly swollen however does report her left lower extremity is chronically larger than her right lower extremity since her previous left total knee arthroplasty. Per my discussion with family it sounds like she may have some chronic swelling especially in the left lower extremity. Vital signs on presentation show a temperature of 97.4, heart rate 107, blood pressure is 154/84, respiratory rate 18 and oxygen saturation was 94% on room air. CBC showed no leukocytosis, anemia or abnormal platelet count however she did have a left shift with neutrophilia having a 78.3% neutrophilia. Her chemistry panel showed an elevated BUN and serum creatinine at 33 and 1.99 respectively. Previous data in our records is from 2019 at which time she had a serum creatinine that was between 0.9 and 1.1. Patient states she drinks plenty of fluids but she is on a diuretic at baseline. Per med review she takes Aldactone 100 mg daily. She states typically she has a good diuretic response with this. BNP was unremarkable at 25.2 and electrolytes were all normal. In the emergency department and a lower extremity ultrasound was performed and showed no evidence of DVT in either lower extremity and she was given 1 dose of Invanz. Request for admission was made for left lower extremity cellulitis with outpatient failure. [facility] Medical History Alcohol use Anemia Arthritis Bladder cystocele Easy bruising Femur fracture Heartburn Hemorrhoids Hernia History of diverticulitis History of edema History of pain when walking Hx of cataract Hypertension Injury of head and neck Loss of hearing Low iron Migraine headache Non-smoker Rectocele Thyroid disease Wears partial dentures Home Medications levothyroxine 75 mcg tablet (Synthroid) 75 mcg PO DAILY thyroid 10/09/16 [History Last Taken 07/03/21] polyethylene glycol 3350 17 gram oral powder packet 17 g PO DAILY PRN Constipation 01/26/19 [History Last Taken 01/26/19 08:57] pantoprazole 40 mg tablet,delayed release 40 mg PO DAILY 12/03/22 [History Last Taken Unknown] spironolactone 100 mg tablet 100 mg PO DAILY 12/03/22 [History Last Taken Unknown] vitamin B complex 1 tab PO DAILY 12/03/22 [History Last Taken Unknown] Allergy/AdvReac Type Severity Reaction Status Date / Time acetaminophen [From Vicodin] Allergy Other Verified 12/03/22 12:55 azithromycin Allergy Other Verified 12/03/22 12:55 [From Zithromax Z-Krishna] doxycycline Allergy Other Verified 12/03/22 12:55 hydrocodone [From Vicodin] Allergy Other Verified 12/03/22 12:55 Penicillins Allergy Rash Verified 12/03/22 12:55 Tetanus Vaccines and Toxoid Allergy Rash Verified 12/03/22 12:55 adhesive tape AdvReac Rash Verified 12/03/22 12:55 aspirin [ASA] AdvReac Other Verified 12/03/22 12:55 no significant family history Surgical History H/O thyroidectomy H/O: hysterectomy Hx of colonoscopy Hx of fusion of cervical spine Hx of hemorrhoidectomy Hx of sinus surgery Total knee replacement status Social History (Updated 12/03/22 @ 15:[address] Leni Washburn DO) Smoking Status: Never smoker alcohol intake: current alcohol intake frequency: holidays/special occasions only substance use type: does not use ROS Constitutional Constitutional: Denies anorexia, change in weight, chills, fatigue, fever(s), malaise, night sweats, weakness or other Eyes Eyes: Denies blurry vision, change in eye color, change in vision, discharge from eye(s), double vision, erythema, eye pain, loss of vision or other ENT HEENT: Denies abnormal hearing, dysphagia, ear pain, epistaxis, headache(s), hearing loss, nasal congestion, nasal discharge, post nasal drip, sinus pressure, sore throat or other Cardiovascular Cardiovascular: Denies chest pain, claudication, dyspnea on exertion, edema, lightheadedness, orthopnea, palpitations, paroxysmal nocturnal dyspnea, rapid heart rate, syncope or other Respiratory/Chest Respiratory/Chest: Denies cough, dyspnea, excessive phlegm production, hemoptysis, productive cough, shortness of breath at rest, shortness of breath with exertion, wheezing or other Gastrointestinal Gastrointestinal: Denies abdominal pain, coffee ground emesis, constipation, diarrhea, dyspepsia, hematemesis, hematochezia, loose stools, melena, nausea, vomiting or other Genitourinary Genitourinary: Reports urinary frequency; Denies burning urination, difficulty urinating, dysuria, hematuria, nocturia, urinary hesitancy, urinary incontinence, urinary urgency or other Musculoskeletal Musculoskeletal: Reports back pain, joint pain, joint stiffness and other Details: Left lower extremity leg discomfort Neurologic Neurologic: Denies abnormal gait, abnormal speech, confusion, disequilibrium, dizziness, focal weakness, headache(s), numbness, paresthesias, seizure-like activity, seizures, syncope, tingling, tremor(s) or other Psychiatric Psychiatric: Denies anxiety, depression, homicidal ideation, suicidal ideation or other Endocrine Endocrinology: Denies change in body appearance, cold intolerance, excessive sweating, heat intolerance, polydipsia, polyuria or other Hematologic/Lymphatic Hematologic/Lymphatic: Denies anemia, easy bleeding, easy bruising, lymphadenopathy or other Allergic/Immunologic Allergic/Immunologic: Denies rhinitis, hives, eczemia, asthma or other Vital Signs Vital Signs Vital Signs: 12/03/22 12:52 Temperature 97.4 F L Temperature Source Temporal Pulse Rate 107 H Respiratory Rate 18 Blood Pressure 154/84 H Blood Pressure Mean 107 Pulse Ox 94 Oxygen Delivery Method Room Air Weight Weight: 107.093 kg Body Mass Index (BMI) 40.5 Physical Exam Const alert, oriented x3, no apparent distress and well nourished; Negative for average body habitus Constitutional Narrative: Morbidly obese, elderly white female sitting up in bed, appears comfortable, family at bedside, nontoxic, very pleasant General Appearance: cooperative HEENT normocephalic, head/scalp atraumatic, hearing grossly normal bilaterally and moist oral mucous membranes Eyes PERRL, EOMs intact bilaterally and conjunctivae normal Neck no lymphadenopathy, supple and no JVD Resp normal respiratory effort, no retractions, no use of accessory muscles and clear to auscultation bilaterally Auscultation: Negative for rales, rhonchi or wheezes Cardio regular rate, regular rhythm, S1 normal heart sound, S2 normal heart sound, no murmurs, no rub, no gallops and no clicks GI normal to inspection, nondistended, normoactive bowel sounds, soft to palpation and non-tender Extremity Extremity Narrative: Bilateral lower extremity edema, left greater than right, pitting in nature, tenderness left lower extremity with palpation, no cyanosis or clubbing Skin No no rashes or lesions noted, No no wounds, skin turgor normal, no jaundice, no petechiae and no mottling Skin Narrative: Left lower extremity with 2 small superficial wounds on the anterior portion of the tibial area, tinea pedis noted between the fourth and fifth digit on the left foot with surrounding erythema Neuro oriented x3, CN's II-XII intact bilaterally, moves all extremities and no focal motor deficits Speech: speech normal Psych affect normal Psych Narrative: Very pleasant and appropriately interactive Results Lab / Micro Data Attestation: I reviewed the patient's lab results. Result Diagrams: 12/03/22 13:45 12/03/22 13:45 Labs: Laboratory Results - last 24 hr 12/03/22 13:45: B-Natriuretic Peptide 25.2 12/03/22 13:45: WBC 9.1, RBC 4.28, Hgb 12.4, Hct 40.0, MCV 93.5, MCH 29.0, MCHC 31.0 L, RDW Std Deviation 52.9 H, RDW Coeff of Soo 15.5 H, Plt Count 233, MPV 9.0, Immature Gran % (Auto) 0.500, Neut % (Auto) 78.3 H, Lymph % (Auto) 12.8 L, Andrew % (Auto) 6.5, Eos % (Auto) 1.5, Baso % (Auto) 0.4, Absolute Neuts (auto) 7.1, Absolute Lymphs (auto) 1.17, Nucleated RBC % 0 12/03/22 13:45: Sodium 136, Potassium 5.1, Chloride 110 H, Carbon Dioxide 22.0, Anion Gap 4 L, BUN 33 H, Creatinine 1.99 H, Estim Creat Clear Calc 18.17, Est GFR (MDRD) Af Amer 31 L, Est GFR (MDRD) Non-Af 25 L, BUN/Creatinine Ratio 16.6, Glucose 93, Calcium 9.8 Radiology Impression Venous Doppler Study 12/03/22 13:33 Interpretation Summary There is no evidence of right lower extremity deep vein thrombosis. Partial compressibility of the left popliteal vein suspicious for chronic deep venous thrombosis. No additional focal abnormality left lower extremity. Patent and compressible bilateral great saphenous veins. Clinical correlation would be helpful. Ordering Physician: Calixto Mishra Performed By: Olga Savage RVT Assessment & Plan Assessment/Plan (1) Left leg cellulitis: (2) Bilateral lower extremity edema: (3) Failure of outpatient treatment: (4) Elevated serum creatinine: (5) Tinea pedis: PLAN: Plan Left lower extremity cellulitis -Patient has 2 superficial areas that could be nidus for infection -Multiple antibiotic allergies -Has been on 2 courses of outpatient oral antibiotics with no significant resolution -Start ertapenem -Check MRSA screen -Follow clinically -Wound care consultation Lower extremity edema -Doppler negative for DVT -Left greater than right -Hold home diuretics secondary to worsening renal function -Suspect left lower extremity is significantly worse related to acute infection -Continue to monitor -Check TSH Elevated serum creatinine -Most recent lab per our data is from 2019 prior to admission lab -Serum creatinine at that time was between 0.9 and 1.1 -Serum creatinine admission was 1.99 -IV fluids ordered for normal saline at 150 cc/h x 1 bag -Hold home diuretics -Repeat lab in a.m. to assess for improvement -If no improvement further work-up to be pursued Tinea pedis -Noted between left fourth and fifth digits--> fairly significant -Nystatin ordered GERD/Chan's esophagus /PUD/ history of GI bleed -Continue home Protonix -EGD done in 2020 that noted large hiatal hernia/grade a reflux esophagitis and multiple nonbleeding duodenal ulcers -No acute issues and had been following with GI -Ongoing outpatient follow-up if any issues Hypothyroidism -Continue home levothyroxine -Check TSH in a.m. Chronic constipation -Continue as needed polyethylene glycol Hypertension -Only home medication is Aldactone -Monitor blood pressure as she was elevated in the emergency department however it is an isolated number -If remains elevated may need further antihypertensives Morbid obesity -BMI 40.5 -Recommend weight loss -Complicates treatment, prognosis, outcomes DVT prophylaxis -Heparin 3 times daily CODE STATUS -Full code is verified prior to admission Charges/Coding Visit Charges Inpatient E&M: 21272 Init Hosp L3
[2022-12-03 16:09] VITALS: BP 152/87; PULSE 87; RESP 18; TEMP 36.7; O2SAT 97
[2022-12-03 16:47] VITALS: BMI 40.5
[2022-12-03] MEDS: Lactated Ringers 1,000 ML 150 ML IV (17:01)
[2022-12-03] MEDS: Heparin Injection (Vial) 5,000 UNIT/ML VIAL 5000 UNIT SC (20:53)
[2022-12-03] MEDS: Nystatin Powder 15gm Bottle 1 APPLIC TOPICAL (20:55)
[2022-12-03 20:59] VITALS: BP 127/63; PULSE 71; RESP 18; TEMP 36.6; O2SAT 100
[2022-12-04 04:00] VITALS: BP 133/68; PULSE 80; RESP 18; TEMP 36.6; O2SAT 97
[2022-12-04] MEDS: Heparin Injection (Vial) 5,000 UNIT/ML VIAL 5000 UNIT SC ×3 (05:19→21:50)
[2022-12-04] MEDS: Levothyroxine 75 MCG Tablet PO (05:19)
[2022-12-04] MEDS: 0.9% Saline Lock 10 ML Syringe IV (05:20)
[2022-12-04] MEDS: Nystatin Powder 15gm Bottle 1 APPLIC TOPICAL ×4 (05:20→21:50)
[2022-12-04 06:42] LABS: Absolute Lymphocyte Count 1.28 X10^3/uL (0.83-4.51); Absolute Neutrophil Count 4.9 X10^3/uL (2.0-7.7); Basophil# 0.04 X10^3/uL; Basophil% 0.6 % (0-1); Eosinophils% 2.8 % (0-5); Hematocrit 35.6 % (37-47); Hemoglobin 11.1 g/dL (12.0-15.0); Lymphocyte # 1.28 X10^3/ul (0.83-4.51); Lymphocyte % 18.1 % (19-41); Mean Corp Hgb Conc 31.2 g/dL (32-36); Mean Corpuscular Hgb 29.5 pg (27.0-32.0); Mean Corpuscular Volume 94.7 fL (81-99); Mean Platelet Vol. 9.2 fl (6.2-12.0); Monocyte# 0.57 X10^3/uL; Monocyte% 8.1 % (0-10); NRBC Flagged by Analyzer 0 % (0-5); Neutrophil # 4.94 X10^3/uL (2.7-7.7); Neutrophil % 69.8 % (47-70); Platelet Count 229 K/mm3 (150-450); RBC Distribution Width CV 15.4 % (11.6-14.6); RBC Distribution Width SD 53.2 fl (35.1-43.9); Red Blood Count 3.76 M/mm3 (4.2-5.4); White Blood Count 7.1 K/mm3 (4.4-11.0)
[2022-12-04 07:19] LABS: AST(SGOT) 18 U/L (15-37); Alanine Aminotransfer ALT/SGPT 19 U/L (13-56); Alkaline Phosphatase 74 U/L (45-117); Anion Gap 2 (5-15); BUN 26 mg/dL (7-18); BUN/Creat Ratio 14.4 RATIO (10-20); Calcium,Total 9.3 mg/dL (8.5-10.1); Chloride 110 mmol/L (98-107); EST Glomerular Filtration Rate 28 mL/min (>60); Est Glom Filt Rate - Afr Amer 34 mL/min (>60); Estimated Creatinine Clearance 20.09 ml/min; Glucose 87 mg/dL (74-106); Phosphorus 2.7 mg/dL (2.5-4.9); Potassium 5.2 mmol/L (3.5-5.1); Sodium Level 134 mmol/L (136-145); Thyroid Stim Hormone (TSH) 2.19 uIU/mL (0.358-3.74)
[2022-12-04] MEDS: Pantoprazole Sodium 40 MG Tablet PO (08:23)
[2022-12-04] MEDS: 0.9% Normal Saline 1,000 ML 75 ML IV ×2 (08:23→21:50)
[2022-12-04 09:30] VITALS: BP 126/66; PULSE 81; RESP 18; TEMP 36.5; O2SAT 98
--- NOTE | 2022-12-04 09:40 | WOUNDNOTE ---
wound photo: left lower leg
--- NOTE | 2022-12-04 11:50 | PN.HOSP_ITS ---
Reason for Visit Reason for Visit: Left lower extremity swelling and erythema Subjective Subjective Patient reports that she is feeling better today. She feels the redness is improved and the pain is decreased. Swelling is overall better as well. Able to independently ambulate to the bathroom with her cane. Has no current complaints or needs at this time. Objective Data Objective Data Vital Signs: Vital Signs Temp Pulse Resp BP Pulse Ox O2 Del Method 97.7 F L 81 18 126/66 H 98 Room Air 12/04/22 09:30 12/04/22 09:30 12/04/22 09:30 12/04/22 09:30 12/04/22 09:30 12/04/22 09:30 Oxygen Delivery Method Room Air Weight: 107.093 kg Body Mass Index (BMI) 40.5 Intake & Output: Intake and Output for Last 24 Hours 12/02/22 12/03/22 12/04/22 23:59 23:59 23:59 Intake Total 1060 / 1060 55 / 55 Balance 1060 / 1060 55 / 55 Lab / Micro Data Result Diagrams: 12/04/22 06:15 12/04/22 06:15 Labs: Laboratory Results - last 24 hr 12/03/22 13:45: B-Natriuretic Peptide 25.2 12/03/22 13:45: WBC 9.1, RBC 4.28, Hgb 12.4, Hct 40.0, MCV 93.5, MCH 29.0, MCHC 31.0 L, RDW Std Deviation 52.9 H, RDW Coeff of Soo 15.5 H, Plt Count 233, MPV 9.0, Immature Gran % (Auto) 0.500, Neut % (Auto) 78.3 H, Lymph % (Auto) 12.8 L, [place] % (Auto) 6.5, Eos % (Auto) 1.5, Baso % (Auto) 0.4, Absolute Neuts (auto) 7.1, Absolute Lymphs (auto) 1.17, Nucleated RBC % 0 12/03/22 13:45: Sodium 136, Potassium 5.1, Chloride 110 H, Carbon Dioxide 22.0, Anion Gap 4 L, BUN 33 H, Creatinine 1.99 H, Estim Creat Clear Calc 18.17, Est GF R (MDRD) Af Amer 31 L, Est GFR (MDRD) Non-Af 25 L, BUN/Creatinine Ratio 16.6, Glucose 93, Calcium 9.8 12/04/22 06:15: WBC 7.1, RBC 3.76 L, Hgb 11.1 L, Hct 35.6 L, MCV 94.7, MCH 29.5, MCHC 31.2 L, RDW Std Deviation 53.2 H, RDW Coeff of Soo 15.4 H, Plt Count 229, MPV 9.2, Immature Gran % (Auto) 0.600, Neut % (Auto) 69.8, Lymph % (Auto) 18.1 L , [place] % (Auto) 8.1, Eos % (Auto) 2.8, Baso % (Auto) 0.6, Absolute Neuts (auto) 4.9, Absolute Lymphs (auto) 1.28, Nucleated RBC % 0 12/04/22 06:15: Sodium 134 L, Potassium 5.2 H, Chloride 110 H, Carbon Dioxide 22.0, Anion Gap 2 L, BUN 26 H, Creatinine 1.80 H, Estim Creat Clear Calc 20.09, Est GFR (MDRD) Af Amer 34 L, Est GFR (MDRD) Non-Af 28 L, BUN/Creatinine Ratio 14.4, Glucose 87, Calcium 9.3, Phosphorus 2.7, Magnesium 2.0, Total Bilirubin 0.50, AST 18, ALT 19, Alkaline Phosphatase 74, Total Protein 6.0 L, Albumin 3.0 L, Globulin 3.0, Albumin/Globulin Ratio 1.0, TSH 2.19 Radiography Diagnostic Testing: Radiology Impression Venous Doppler Study 12/03/22 13:33 Interpretation Summary There is no evidence of right lower extremity deep vein thrombosis. Partial com pressibility of the left popliteal vein suspicious for chronic deep venous thrombosis. No additional focal abnormality left lower extremity. Patent and compressible bilateral great saphenous veins. Clinical correlation would be helpful. Ordering Physician: Calixto Mishra Performed By: Willinger, Olga, RVT Physical Exam Const alert, oriented x3, no apparent distress and well nourished; Negative for average body habitus Constitutional Narrative: Morbidly obese, elderly white female walking back to the chair from the bathroom, appears comfortable, nursing at bedside, nontoxic, very pleasant General Appearance: cooperative HEENT normocephalic, head/scalp atraumatic, hearing grossly normal bilaterally and moist oral mucous membranes Resp normal respiratory effort, no retractions, no use of accessory muscles and clear to auscultation bilaterally Auscultation: Negative for rales, rhonchi or wheezes Cardio regular rate, regular rhythm, S1 normal heart sound, S2 normal heart sound, no murmurs, no rub, no gallops and no clicks GI normal to inspection, nondistended, normoactive bowel sounds, soft to palpation and non-tender Extremity Extremity Narrative: Bilateral lower extremity edema, left greater than right but overall improving bilaterally, pitting in nature, tenderness left lower extremity with palpation has decreased, no cyanosis or clubbing Skin No no rashes or lesions noted, No no wounds, skin turgor normal, no jaundice, no petechiae and no mottling Skin Narrative: Left lower extremity with 2 small superficial wounds on the anterior portion of the tibial area, tinea pedis noted between the fourth and fifth digit on the left foot with surrounding erythema, outline erythematous area has reduced inside and is retracting with an outlined area with less erythema throughout Neuro oriented x3, moves all extremities and no focal motor deficits Speech: speech normal Psych affect normal Psych Narrative: Very pleasant and appropriately interactive Assessment & Plan Assessment/Plan (1) Left leg cellulitis: (2) Bilateral lower extremity edema: (3) Failure of outpatient treatment: (4) Elevated serum creatinine: (5) Tinea pedis: (6) Hyperkalemia: PLAN: Plan Left lower extremity cellulitis -Patient has 2 superficial areas that could be nidus for infection -Multiple antibiotic allergies -Has been on 2 courses of outpatient oral antibiotics with no significant resolution -Continue ertapenem for at least another 24 hours as she clinically appears to be improving -Follow clinically -Wound care following Lower extremity edema -Doppler negative for DVT -Left greater than right -Hold home diuretics secondary to worsening renal function -Suspect left lower extremity is significantly worse related to acute infection -Continue to monitor -TSH is within normal limits Elevated serum creatinine -Most recent lab per our data is from 2019 prior to admission lab -Serum creatinine at that time was between 0.9 and 1.1--> however current baseline is unclear -Serum creatinine admission was 1.99 and creatinine today is down to 1.8 -Continue IV fluids with normal saline at 75 cc/h and reassess serum creatinine in a.m. -Hold home diuretics -Repeat lab in a.m. to assess for improvement -If no improvement further work-up to be pursued Mild hyperkalemia -Potassium is 5.2 -Asymptomatic -Continue to hold Aldactone -If does trend up may need to treat Tinea pedis -Noted between left fourth and fifth digits--> fairly significant -Nystatin to be continued GERD/Chan's esophagus /PUD/ history of GI bleed -Continue home Protonix -EGD done in 2020 that noted large hiatal hernia/grade a reflux esophagitis and multiple nonbleeding duodenal ulcers -No acute issues and had been following with GI -Ongoing outpatient follow-up if any issues Hypothyroidism -Continue home levothyroxine -TSH is within normal limits Chronic constipation -Continue as needed polyethylene glycol Chronic anemia -Appears normocytic -Hemoglobin appears to be at baseline -Repeat CBC in a.m. Hypertension -Only home medication is Aldactone which we are holding secondary to elevated serum creatinine and hyperkalemia -Blood pressure seems to be well controlled on no antihypertensives -If remains elevated may need further antihypertensives Arthritis -Patient is on as needed prednisone for right arm arthritis -We will continue at this time as this is a chronic medication for her Morbid obesity -BMI 40.5 -Recommend weight loss -Complicates treatment, prognosis, outcomes DVT prophylaxis -Heparin 3 times daily CODE STATUS -Full code is verified prior to admission Charges/Coding Visit Charges Inpatient E&M: 57829 Subs Hosp L2
--- NOTE | 2022-12-04 13:10 | CASEMGMT ---
LILLY LÓPEZ Assessment: Face to Face with pt for initial transition planning/care coordination assessment. LILLY LÓPEZ introduced self and role at [facility], pt voices understanding and consents to assessment. Pt is A/O x4 and answers all questions appropriately at this time. Pt sitting up in chair in no distress. Care providers, pharmacy, and demographics verified/updated. Admitting Dx: cellulitis, failure of outpt tx PCP:Zachariah Specialists:Pt denies. [facility]: [facility] Prescription Benefit: yes LNOK: Regina Sevilla dtr; Maria Dolores Salmeron dtr Living Arrangements: Pt lives alone in a single story home with no steps to enter. Pt reports she is I in ADL's and denies concerns at home. Pt states she does all housekeeping tasks and mows her own yard. Transportation: Pt drives self and denies concerns with transportation. DME/HHC/SNF: Pt has a cane that she uses most recently because of the swelling in her feet. Pt has a FWW that she does not use and has a shower chair. Pt has had HHC in the past and denies hx of SNF stays. Pt states no concerns with going home at time of dc. Pt denies needing any services upon dc home. Pt states no further concerns/needs. CM to follow. Advised pt to ask CM if any further question/concerns/needs arise, voices understanding. Pt Goal: Home Plan: Home
[2022-12-04 15:08] VITALS: BP 121/57; PULSE 85; RESP 18; TEMP 36.6; O2SAT 97
[2022-12-04 20:17] VITALS: BP 124/51; PULSE 71; RESP 18; TEMP 36.7; O2SAT 95
[2022-12-05 05:37] LABS: Absolute Neutrophil Count 4.4 X10^3/uL (2.0-7.7); Basophil# 0.03 X10^3/uL; Basophil% 0.4 % (0-1); Eosinophil# 0.24 X10^3/uL; Eosinophils% 3.6 % (0-5); Hematocrit 33.8 % (37-47); Hemoglobin 10.7 g/dL (12.0-15.0); Lymphocyte % 22.2 % (19-41); Mean Corp Hgb Conc 31.7 g/dL (32-36); Mean Corpuscular Volume 94.7 fL (81-99); Monocyte# 0.55 X10^3/uL; Monocyte% 8.1 % (0-10); NRBC Flagged by Analyzer 0 % (0-5); Neutrophil # 4.38 X10^3/uL (2.7-7.7); Platelet Count 206 K/mm3 (150-450); RBC Distribution Width CV 15.5 % (11.6-14.6); RBC Distribution Width SD 53.5 fl (35.1-43.9); Red Blood Count 3.57 M/mm3 (4.2-5.4); White Blood Count 6.8 K/mm3 (4.4-11.0)
[2022-12-05 06:00] VITALS: BP 133/59; PULSE 66; RESP 16; TEMP 36.6; O2SAT 97
[2022-12-05 06:04] LABS: Anion Gap 2 (5-15); BUN 28 mg/dL (7-18); BUN/Creat Ratio 15.1 RATIO (10-20); Calcium,Total 9.3 mg/dL (8.5-10.1); Chloride 113 mmol/L (98-107); Creatinine, Serum 1.85 mg/dL (0.55-1.02); EST Glomerular Filtration Rate 28 mL/min (>60); Est Glom Filt Rate - Afr Amer 33 mL/min (>60); Estimated Creatinine Clearance 19.55 ml/min; Glucose 84 mg/dL (74-106); Potassium 5.3 mmol/L (3.5-5.1); Sodium Level 138 mmol/L (136-145)
[2022-12-05] MEDS: Heparin Injection (Vial) 5,000 UNIT/ML VIAL 5000 UNIT SC (06:32)
[2022-12-05] MEDS: Levothyroxine 75 MCG Tablet PO (06:33)
[2022-12-05] MEDS: Nystatin Powder 15gm Bottle 1 APPLIC TOPICAL (06:33)
[2022-12-05 08:14] VITALS: BP 143/63; PULSE 64; RESP 16; TEMP 36.4; O2SAT 98
[2022-12-05] MEDS: Pantoprazole Sodium 40 MG Tablet PO (09:37)
--- NOTE | 2022-12-05 13:45 | DCINST_ITS ---
Discharge Instructions Diet Discharge Diet: No restrictions Activity Discharge Activity: Return to Normal Activity Dressing / Incision Call your doctor if you observe: Fever of 101 or Higher, Shortness of breath, Dizziness, Fainting spells, Swelling in the ankles, Chest pain and Increased palpitations (irregular heartbeat) Follow Up Care Test Results: Test results from this visit will be discussed in further detail at your follow- up appointment, if applicable. Discharge Plan Admission Admit Date/Time: 12/03/22 15:46 Attending Provider: Tevin Rucker Primary Care Provider: ANDREZ CURTIS Consulting Providers: Leni Washburn Instructions Additional Instructions / Restrictions: Follow-up with your PCP in 3 to 5 days to monitor your renal function and your potassium, your potassium was little bit elevated but stable as is your renal function. Discharge Orders/Prescriptions Prescriptions: New cephalexin 500 mg capsule 500 mg PO Q12H Qty: 10 0RF Continued levothyroxine [Synthroid] 75 MCG tablet 75 mcg PO DAILY Label Comments: THYROID polyethylene glycol 3350 17 GM packet 17 g PO DAILY PRN (Reason: Constipation) vitamin B complex Tablet 1 tab PO DAILY pantoprazole 40 mg tablet,delayed release (DR/EC) 40 mg PO DAILY prednisone 5 mg tablet 5 mg PO DAILY PRN PRN (Reason: arthritis ) Held spironolactone 100 mg Tablet 100 mg PO DAILY Hold Instructions: Resume on 12/10/22. Referrals / Follow Up: ANDREZ CURTIS [Other] Disposition Disposition (needs filled in before D/C Order can be placed): Home, Self Care
--- NOTE | 2022-12-05 13:51 | PCM.DC.SUM ---
Providers Date of Admission: 12/03/22 Primary Care Physician: ANDREZ CURTIS Consultations 12/03/22 16:25 Consult: Onc/Wound/farm service adviser Routine Comment: Reason For Visit: CELLULITIS, FAILURE OF OUTPT TX Diagnosis Discharge Diagnosis (1) Left leg cellulitis: Status: Acute Code(s): L03.116 - Cellulitis of left lower limb (2) Bilateral lower extremity edema: Status: Acute Code(s): R60.0 - Localized edema (3) Failure of outpatient treatment: Status: Acute Code(s): Z78.9 - Other specified health status (4) Elevated serum creatinine: Status: Acute Code(s): R79.89 - Other specified abnormal findings of blood chemistry (5) Tinea pedis: Status: Acute Code(s): B35.3 - Tinea pedis (6) Hyperkalemia: Status: Acute Code(s): E87.5 - Hyperkalemia Medications at Discharge Home Medications levothyroxine 75 mcg tablet (Synthroid) 75 mcg PO DAILY thyroid 10/09/16 polyethylene glycol 3350 17 gram oral powder packet 17 g PO DAILY PRN Constipation 01/26/19 pantoprazole 40 mg tablet,delayed release 40 mg PO DAILY 12/03/22 spironolactone 100 mg tablet 100 mg PO DAILY 12/03/22 vitamin B complex 1 tab PO DAILY 12/03/22 prednisone 5 mg tablet 5 mg PO DAILY PRN PRN arthritis 12/04/22 cephalexin 500 mg capsule 500 mg PO Q12H #10 caps 12/05/22 nystatin 100,000 unit/gram topical powder (Nyamyc) 1 applic topical TID 14 days #15 grams 12/05/22 Hospital Course Operations None Procedures None Summary of Care Provided Minutes Spent on Discharge: 36 Hospital Course: Per HPI: EMEKA VUONG, is a 86 F who presented to the emergency department at [facility] on 12/03/2022 with left lower extremity redness and swelling that has been ongoing since October.? She has taken 2 rounds of oral antibiotics with no significant improvement and feels that it is slightly worsening.? She has bilateral lower extremity edema which is not her baseline per discussion with her daughter.? She previously finished a course of oral clindamycin and then was placed on oral Bactrim with only a couple of pills left and since nothing is better she was directed to come to the emergency department.? She has mild discomfort in her left lower extremity however does not denies any acute pain.? She denies any fever, chills, shortness of breath, orthopnea and states her only real complaint is her leg symptoms as noted above.? Her daughter reports that her right leg is close to the baseline in appearance but her left lower extremity is markedly swollen however does report her left lower extremity is chronically larger than her right lower extremity since her previous left total knee arthroplasty.? Per my discussion with family it sounds like she may have some chronic swelling especially in the left lower extremity. Vital signs on presentation show a temperature of 97.4, heart rate 107, blood pressure is 154/84, respiratory rate 18 and oxygen saturation was 94% on room air.? CBC showed no leukocytosis, anemia or abnormal platelet count however she did have a left shift with neutrophilia having a 78.3% neutrophilia.? Her chemistry panel showed an elevated BUN and serum creatinine at 33 and 1.99 respectively.? Previous data in our records is from 2019 at which time she had a serum creatinine that was between 0.9 and 1.1.? Patient states she drinks plenty of fluids but she is on a diuretic at baseline.? Per med review she takes Aldactone 100 mg daily.? She states typically she has a good diuretic response with this.? BNP was unremarkable at 25.2 and electrolytes were all normal. In the emergency department and a lower extremity ultrasound was performed and showed no evidence of DVT in either lower extremity and she was given 1 dose of Invanz.? Request for admission was made for left lower extremity cellulitis with outpatient failure. Hospital Course: 1. Left lower extremity cellulitis with edema?86-year-old female presented to the hospital with outpatient failure for left cellulitis. She was initially on clindamycin and Bactrim she had improvement with ertapenem however there is no p.o. equivalent given the appearance of her cellulitis being streptococcal we will plan to discharge on p.o. Keflex 500 mg twice daily given her renal function. Her renal function is little bit elevated though it does appear to be at her recent baseline. She is on Aldactone as an outpatient which was held and is to be restarted on December 10 and prior to restarting it I did request that a outpatient follow-up be obtained with a BMP to monitor her renal function as well as her potassium as her potassium was slightly above 5, which was asymptomatic. I discussed with her and her daughter the plan for possible discharge today and they both expressed understanding of the risk and benefits of going home and would like to go home today. 2. GERD, history of GI bleed, hypothyroidism, chronic constipation, chronic anemia, hypertension, arthritis, morbid obesity are all chronic medical conditions which complicate her care. Her home med's were continued where appropriate Physical Exam Narrative General: Alert, Oriented x3, Cooperative, No apparent distress HEENT: Atraumatic, PERRLA, EOMI, Normocephalic Oral: Moist Mucosa Neck: Supple, No JVD Lungs: Diminished, Normal air movement, No rhonchi, No wheeze, No rales Cardiovascular: Regular rate, Regular Rhythm, Normal S1, Normal S2, No murmurs Abdomen: Soft, Non Tender, Non-Distended, No Hepato-splenomegaly Extremities: Edema, Capillary Refill Less than 3 Seconds Skin: Improving erythema in her left lower extremity, dressings intact Musculoskeletal: No Tenderness to Palpation of Joints or Extremities Neurological: Cranial nerves II-XII grossly intact, Motor Exam 5/5 strength throughout, Sensory exam intact to light touch and pain Psych/Mental Status: Normal Affect, Appropriate Weight / BMI Weight Weight: 236 lb 1.6 oz Body Mass Index (BMI) 40.5 ABG / Lab / Microbiology Data Result Diagrams: 12/05/22 05:15 12/05/22 05:15 Laboratory: Laboratory Results - last 24 hr 12/05/22 05:15: WBC 6.8, RBC 3.57 L, Hgb 10.7 L, Hct 33.8 L, MCV 94.7, MCH 30.0, MCHC 31.7 L, RDW Std Deviation 53.5 H, RDW Coeff of Soo 15.5 H, Plt Count 206, MPV 9.0, Immature Gran % (Auto) 0.700, Neut % (Auto) 65.0, Lymph % (Auto) 22.2, [place] % (Auto) 8.1, Eos % (Auto) 3.6, Baso % (Auto) 0.4, Absolute Neuts (auto) 4.4, Absolute Lymphs (auto) 1.50, Nucleated RBC % 0 12/05/22 05:15: Sodium 138, Potassium 5.3 H, Chloride 113 H, Carbon Dioxide 23.0, Anion Gap 2 L, BUN 28 H, Creatinine 1.85 H, Estim Creat Clear Calc 19.55, Est GFR (MDRD) Af Amer 33 L, Est GFR (MDRD) Non-Af 28 L, BUN/Creatinine Ratio 15.1, Glucose 84, Calcium 9.3 D/C Instructions Discharge Diet: No restrictions Call your doctor if you observe: Fever of 101 or Higher, Shortness of breath, Dizziness, Fainting spells, Swelling in the ankles, Chest pain and Increased palpitations (irregular heartbeat) Meaningful Use Info Meaningful Use Diagnoses (Choose all that apply): None applicable Discharge Plan Admission Admit Date/Time: 12/03/22 15:46 Attending Provider: Tevin Rucker Primary Care Provider: ANDREZ CURTIS Consulting Providers: Leni Washburn Instructions Additional Instructions / Restrictions: Follow-up with your PCP in 3 to 5 days to monitor your renal function and your potassium, your potassium was little bit elevated but stable as is your renal function. Discharge Orders/Prescriptions Prescriptions: New cephalexin 500 mg capsule 500 mg PO Q12H Qty: 10 0RF nystatin [Nyamyc] 100,000 unit/gram Powder 1 applic topical TID 14 Days Qty: 15 0RF Protocol: *Topical Application Instructions APPLICATION INSTRUCTIONS: Left foot between fourth and fifth digit Continued levothyroxine [Synthroid] 75 MCG tablet 75 mcg PO DAILY Label Comments: THYROID polyethylene glycol 3350 17 GM packet 17 g PO DAILY PRN (Reason: Constipation) vitamin B complex Tablet 1 tab PO DAILY pantoprazole 40 mg tablet,delayed release (DR/EC) 40 mg PO DAILY prednisone 5 mg tablet 5 mg PO DAILY PRN PRN (Reason: arthritis ) Held spironolactone 100 mg Tablet 100 mg PO DAILY Hold Instructions: Resume on 12/10/22. Referrals / Follow Up: ANDREZ CURTIS [Other] Disposition Disposition (needs filled in before D/C Order can be placed): Home, Self Care Charges/Coding Visit Charges Inpatient E&M: 80132 Disch Hosp >30min
[2022-12-05 14:23] VITALS: BP 134/58; PULSE 84; RESP 17; TEMP 36.6; O2SAT 98
--- NOTE | 2022-12-05 14:36 | CASEMGMT ---
Addendum entered by Jb Bell 12/05/22 16:02: [facility] able to accept pt w/SOC slated for Saturday. This was entered into CM discharge plan, it was re-printed at this time, and given to pt and daughter. Addendum entered by Jb Bell 12/05/22 15:08: Message received from [facility] via [employer]. They are unable to accept pt. Addendum entered by Jb Bell 12/05/22 14:48: Initially dtr's first HHC choice was [facility]. She and pt made aware they only go a 30 min radius. Dtr checked and pt is 40 min away. Original Note: LILLY LÓPEZ NOTE: Pt is being discharged. Therapy notes reviewed and HHC is recommended. RN CM to room. Pt sitting up in recliner chair. Dtr @ bedside. Pt and dtr interested in HHC. Pt states does not need SN, just therapy. Discussed homebound criteria and questions answered. Pt states she has been weak and they state would be difficult to get in/out of vehicle. Pt states she feels she would be homebound for the first couple of weeks at least. A list of HHC providers including quality and resource use data and consistent with the patient?s preferred geographic region, medical needs, and insurance network were provided from the [employer]. [facility] choice [facility] and call placed to Delores there. She states they would not have any staffing until next week. Referral sent to next top 2 choices--[facility] and [facility] via [employer]. Awaiting response. Pt did verify she has a walker @ home she can use. Corie LAWSON RN CM
--- NOTE | 2022-12-05 14:46 | PHA.DC.MC ---
Pharmacy Service has performed discharge medication reconciliation and counseling for this patient. Patient with allergy to penicillin, reports has had Keflex in the past and has tolerated it. 1. CEPHALEXIN 500MG PO Q12 X 5 DAYS 2. NYSTATIN 100,000UNIT/GRAM 1 APPLICATION TID X 14 DAYS The patient's discharge medication list was reviewed for discrepancies and discrepancies were resolved. Home Medications levothyroxine 75 mcg tablet (Synthroid) 75 mcg PO DAILY thyroid 10/09/16 polyethylene glycol 3350 17 gram oral powder packet 17 g PO DAILY PRN Constipation 01/26/19 pantoprazole 40 mg tablet,delayed release 40 mg PO DAILY 12/03/22 spironolactone 100 mg tablet 100 mg PO DAILY 12/03/22 vitamin B complex 1 tab PO DAILY 12/03/22 prednisone 5 mg tablet 5 mg PO DAILY PRN PRN arthritis 12/04/22 cephalexin 500 mg capsule 500 mg PO Q12H #10 caps 12/05/22 nystatin 100,000 unit/gram topical powder (Nyamyc) 1 applic topical TID 14 days #15 grams 12/05/22 The patient was counseled on the following discharge medications and changes in medications for homegoing were reviewed. The Reason for Use, instructions for use, and potential side effects were reviewed for all new medications. The patient's questions regarding all of their medications were answered. The patient was able to verbally demonstrate an understanding of their discharge medications.
== END 2022-12-05 16:10 | disposition home health service (06) | DRG 603 ==
LOC: ED 14:51 → MS3 15:32
PROVIDERS: Admitting Provider Internal Medicine; Emergency Provider Emergency Medicine; Visit Provider Family Medicine
DX: L03.116 Cellulitis of left lower limb (principal); Z68.41 Body mass index [BMI] 40.0-44.9, adult; E66.01 Morbid (severe) obesity due to excess calories; S81.802A Unspecified open wound, left lower leg, initial encounter; I87.8 Other specified disorders of veins; E89.0 Postprocedural hypothyroidism; I10 Essential (primary) hypertension; M19.90 Unspecified osteoarthritis, unspecified site; E87.5 Hyperkalemia; K21.9 Gastro-esophageal reflux disease without esophagitis; K59.09 Other constipation; X58.XXXA Exposure to other specified factors, initial encounter; L03.115 Cellulitis of right lower limb; B35.3 Tinea pedis; R60.0 Localized edema; Z79.890 Hormone replacement therapy; Z79.899 Other long term (current) drug therapy
CPT/HCPCS: 36415; 80048; 80053; 83735; 83880; 84100; 84443; 85025; 93970; 94668; 96361; 96365; 96366; 96372; 97162; 97530; 99221; 99284; J7030; J7050; J7120; A4216; G0378

== ENCOUNTER 2022-12-11 12:29 | Emergency (ER) | payer MEDICARE, SELFPAY ==
[2022-12-11 12:29] VITALS: BP 132/79; PULSE 93; RESP 16; TEMP 36.4; O2SAT 95; BMI 41.0
[2022-12-11 13:39] LABS: Absolute Lymphocyte Count 1.45 X10^3/uL (0.83-4.51); Absolute Neutrophil Count 6.8 X10^3/uL (2.0-7.7); Basophil# 0.04 X10^3/uL; Basophil% 0.4 % (0-1); Eosinophil# 0.12 X10^3/uL; Eosinophils% 1.3 % (0-5); Hemoglobin 12.8 g/dL (12.0-15.0); Lymphocyte # 1.45 X10^3/ul (0.83-4.51); Mean Corp Hgb Conc 32.8 g/dL (32-36); Mean Corpuscular Hgb 30.4 pg (27.0-32.0); Mean Corpuscular Volume 92.6 fL (81-99); Mean Platelet Vol. 8.4 fl (6.2-12.0); Monocyte# 0.61 X10^3/uL; Monocyte% 6.7 % (0-10); NRBC Flagged by Analyzer 0 % (0-5); Neutrophil # 6.77 X10^3/uL (2.7-7.7); Neutrophil % 74.7 % (47-70); Platelet Count 247 K/mm3 (150-450); RBC Distribution Width CV 15.2 % (11.6-14.6); RBC Distribution Width SD 51.2 fl (35.1-43.9); Red Blood Count 4.21 M/mm3 (4.2-5.4); White Blood Count 9.1 K/mm3 (4.4-11.0)
[2022-12-11 13:50] LABS: Anion Gap 9 (5-15); BUN 39 mg/dL (7-18); BUN/Creat Ratio 19.8 RATIO (10-20); Calcium,Total 10.2 mg/dL (8.5-10.1); Chloride 111 mmol/L (98-107); Creatinine, Serum 1.97 mg/dL (0.55-1.02); EST Glomerular Filtration Rate 26 mL/min (>60); Est Glom Filt Rate - Afr Amer 31 mL/min (>60); Estimated Creatinine Clearance 18.36 ml/min; Glucose 97 mg/dL (74-106); Potassium 4.9 mmol/L (3.5-5.1); Sodium Level 141 mmol/L (136-145)
[2022-12-11 13:51] LABS: BNP,B-Type NATRIURETIC PEPTIDE 18.3 pg/mL (0-100)
[2022-12-11 14:01] LABS: Lactic Acid 1.9 mmol/L (0.4-1.9)
[2022-12-11 14:18] LABS: Procalcitonin 0.04 ng/mL (0.00-0.09)
[2022-12-11] MEDS: levoFLOXacin 750 MG Tablet PO (15:45)
[2022-12-11 15:46] VITALS: BP 133/98; PULSE 87; RESP 20; O2SAT 96
--- NOTE | 2022-12-11 15:56 | EX.ED.DYSGE1 ---
HPI History of Present Illness Chief Complaint: Cellulitis Informant: patient Narrative Narrative: Patient is a 89-year-old female with history of multiple allergies, CKD, recent cellulitis of her left lower extremity, chronic neck pain, hypertension and hypothyroid presenting with concern of worsening swelling of her left ankle. Patient is concerned her infection is getting worse. Patient was admitted from 12/03 through 12/05 for left lower extremity cellulitis. She was treated with IV antibiotics in the ER and discharged home on Keflex 500 mg twice daily which was renally dosed. Patient states she took the medication about 2 hours later had a lot of nausea, vomiting and diarrhea. She had to stop taking it. Her PCP called in Bactrim which she has been taking since (for the past 5 days). Of note patient was treated with Bactrim and clindamycin prior to her admission to the hospital for failure of outpatient antibiotic treatment. Patient states she has been wrapping her leg. She was taken off of her diuretic secondary to poor renal function. [facility] Medical History Alcohol use Anemia Arthritis Bladder cystocele Easy bruising Femur fracture Heartburn Hemorrhoids Hernia History of diverticulitis History of edema History of pain when walking Hx of cataract Hypertension Injury of head and neck Loss of hearing Low iron Migraine headache Non-smoker Rectocele Thyroid disease Wears partial dentures Home Medications levothyroxine 75 mcg tablet (Synthroid) 75 mcg PO DAILY THYROID 10/09/16 [History Last Taken 12/11/22] pantoprazole 40 mg tablet,delayed release 40 mg PO DAILY ACID REFLEX 12/03/22 [History Last Taken 12/11/22] spironolactone 100 mg tablet 100 mg PO DAILY FLUID 12/03/22 [History Last Taken 12/11/22] vitamin B complex 1 tab PO DAILY SUPPLEMENT 12/03/22 [History Last Taken 12/11/22] prednisone 5 mg tablet 5 mg PO DAILY PRN ARTHRITIS 12/04/22 [History Last Taken 3 Days Ago ~12/08/22] cholecalciferol (vitamin D3) 25 mcg (1,000 unit) tablet 25 mcg PO DAILY SUPPLEMENT 12/11/22 [History Last Taken 12/11/22] levofloxacin 500 mg tablet 500 mg PO Q48H #5 tabs 12/11/22 [Rx Last Taken Unknown] ondansetron 4 mg disintegrating tablet 4 mg PO Q8H PRN PRN Nausea #10 tabs 12/11/22 [Rx Last Taken Unknown] sulfamethoxazole 800 mg-trimethoprim 160 mg tablet 1 tab PO BID ANTIBIOTIC 12/11/22 [History Last Taken 12/11/22] Allergy/AdvReac Type Severity Reaction Status Date / Time acetaminophen [From Vicodin] Allergy Other Verified 12/11/22 12:32 azithromycin Allergy Other Verified 12/11/22 12:32 [From Zithromax Z-Krishna] doxycycline Allergy Other Verified 12/11/22 12:32 hydrocodone [From Vicodin] Allergy Other Verified 12/11/22 12:32 Penicillins Allergy Rash Verified 12/11/22 12:32 Tetanus Vaccines and Toxoid Allergy Rash Verified 12/11/22 12:32 adhesive tape AdvReac Rash Verified 12/11/22 12:32 aspirin [ASA] AdvReac Other Verified 12/11/22 12:32 Surgical History H/O thyroidectomy H/O: hysterectomy Hx of colonoscopy Hx of fusion of cervical spine Hx of hemorrhoidectomy Hx of sinus surgery Total knee replacement status Social History Smoking Status: Never smoker alcohol intake: current alcohol intake frequency: holidays/special occasions only substance use type: does not use ROS ROS ED Constitutional Constitutional ED: Denies chills or fever(s) Cardiovascular Cardiovascular: Denies chest pain or palpitations Respiratory/Chest Respiratory/Chest: Denies cough or dyspnea Gastrointestinal Gastrointestinal: Denies abdominal pain, diarrhea, nausea or vomiting Musculoskeletal Musculoskeletal: Reports other Details: left ankle swelling ; Denies arthralgias or myalgias Integumentary Reports rash Neurologic Neurologic: Denies paresthesias or weakness Hematologic/Lymphatic Hematologic/Lymphatic: Denies easy bleeding or easy bruising EXAM Physical Exam Const Vital Signs: 12/11/22 12:29 12/11/22 15:46 Temperature 97.6 F L Temperature Source Temporal Pulse Rate 93 87 Respiratory Rate 16 20 H Blood Pressure 132/79 H 133/98 H Blood Pressure Mean 96 109 Pulse Ox 95 96 Oxygen Delivery Method Room Air Room Air Positive well nourished and well developed General Appearance ED: well developed and NAD HEENT Reports moist mucous membranes Eyes PERRL and EOMs intact bilaterally Neck supple and no JVD Chest Wall inspection of chest normal Resp normal respiratory effort and clear to auscultation bilaterally Cardio regular rate, regular rhythm and no murmurs Extremity Extremity Narrative: Pitting edema of the left ankle. No associated warmth. Normal range of motion. No deformity. No pedal edema bilaterally. 2+ bilateral DP pulses. General Extremety ED: Yes edema; Negative for tenderness General Extremity: edema Neuro oriented x3 Sensorium / Orientation: alert Motor Exam: general weakness Psych mental status grossly normal Skin Skin Narrative: Chronic skin changes bilaterally consistent with venous stasis. There appears to be healing erythema of the left lower extremity. Skin marker in place on the left lower extremity and the erythema does not go out side the boundaries of that. No associated lymphangitic streaking. No fluctuance or signs of abscess formation appreciated. No associated warmth. There is some mild increased edema over the left medial ankle which is nonspecific. MDM MDM MDM Narrative Medical decision making narrative: Evaluated for concern of worsening infection. She was admitted to the hospital and treated with IV antibiotics and discharged on Keflex. She did not tolerate it was switched back to Bactrim by her PCP. This was due to multiple antibiotic intolerances. Since being back on the Bactrim she feels that her symptoms are worsening. Clinically I do not think her cellulitis looks particularly bad and a lot of this is chronic/healing changes. She does have some increased edema of her left ankle which is most consistent with third spacing. I do not appreciate palpable cords. Compartments are soft. She does not have a leukocytosis, fever and her procalcitonin is normal at 0.04. She does not clinically appear fluid overloaded and her lactate is normal. Her BNP is normal at 18.3. Patient's kidney function remains elevated at 1.97 with no acute changes from her recent admission. Discussed with patient this time I do not think she requires admission for further IV antibiotics especially as she did not continue the antibiotics that were more specific for her likely cellulitis bacteria. Patient will be switched to Levaquin that will be renally dosed. She is given the first dose orally in the emergency room which she does seem to tolerate. She is counseled that she might have to deal with a certain degree of side effects with antibiotics in order to be completely treated. Also counseled on elevation and wrapping of her leg. Case was discussed with the nurse practitioner that she has been seen, Sher Meyer. She saw the patient today and did not think the leg looked too bad but the patient and her daughter had verbalized concern about recurrent infection. Case also discussed with the patient's daughter Regina who is agreeable to plan of care. They are given return precautions. Counseled on close outpatient follow-up. History & Record Review Additional record(s) reviewed:: Prior inpatient record Lab Data Attestation: I reviewed the patient's lab results. Labs: Laboratory Results - last 24 hr 12/11/22 12/11/22 12/11/22 13:33 13:33 13:33 WBC 9.1 RBC 4.21 Hgb 12.8 Hct 39.0 MCV 92.6 MCH 30.4 MCHC 32.8 RDW Std Deviation 51.2 H RDW Coeff of Soo 15.2 H Plt Count 247 MPV 8.4 Immature Gran % (Auto) 0.900 Neut % (Auto) 74.7 H Lymph % (Auto) 16.0 L [place] % (Auto) 6.7 Eos % (Auto) 1.3 Baso % (Auto) 0.4 Absolute Neuts (auto) 6.8 Absolute Lymphs (auto) 1.45 Nucleated RBC % 0 Sodium 141 Potassium 4.9 Chloride 111 H Carbon Dioxide 21.0 Anion Gap 9 BUN 39 H Creatinine 1.97 H Estim Creat Clear Calc 18.36 Est GFR (MDRD) Af Amer 31 L Est GFR (MDRD) Non-Af 26 L BUN/Creatinine Ratio 19.8 Glucose 97 Lactic Acid 1.9 Calcium 10.2 H B-Natriuretic Peptide Procalcitonin 12/11/22 12/11/22 13:33 13:33 WBC RBC Hgb Hct MCV MCH MCHC RDW Std Deviation RDW Coeff of Soo Plt Count MPV Immature Gran % (Auto) Neut % (Auto) Lymph % (Auto) [place] % (Auto) Eos % (Auto) Baso % (Auto) Absolute Neuts (auto) Absolute Lymphs (auto) Nucleated RBC % Sodium Potassium Chloride Carbon Dioxide Anion Gap BUN Creatinine Estim Creat Clear Calc Est GFR (MDRD) Af Amer Est GFR (MDRD) Non-Af BUN/Creatinine Ratio Glucose Lactic Acid Calcium B-Natriuretic Peptide 18.3 Procalcitonin 0.04 Discharge Plan Triage Chief Complaint: Cellulitis ED Provider: Sofia Feng Dx/Rx/DC Orders Clinical Impression: Edema of left foot, Cellulitis of left lower extremity Instructions: ED Cellulitis, ED Peripheral Edema, Unilateral Prescriptions: New levofloxacin 500 mg tablet 500 mg PO Q48H Qty: 5 0RF ondansetron 4 mg tablet,disintegrating 4 mg PO Q8H PRN PRN (Reason: Nausea) Qty: 10 0RF No Action levothyroxine [Synthroid] 75 MCG tablet 75 mcg PO DAILY spironolactone 100 mg Tablet 100 mg PO DAILY Hold Instructions: Resume on 12/10/22. vitamin B complex Tablet 1 tab PO DAILY pantoprazole 40 mg tablet,delayed release (DR/EC) 40 mg PO DAILY prednisone 5 mg tablet 5 mg PO DAILY PRN (Reason: ARTHRITIS) sulfamethoxazole-trimethoprim 800-160 mg tablet 1 tab PO BID cholecalciferol (vitamin D3) 25 mcg (1,000 unit) Tablet 25 mcg PO DAILY Primary Care Provider: TAYLOR CUEVAS Referrals: TAYLOR CUEVAS [Other] Activity Restrictions/Additional Instructions: You been prescribed nausea medicine. The antibiotics were given today and your next dose will be on . Because your kidney function is given every other day. Please follow-up closely for wound check with your primary care office. If your symptoms are worsening please return to the emergency room. At this time I do not think you require admission. Please elevate your leg and continue to wrap it to help with the swelling. Disposition Disposition: Home, Self Care
[2022-12-11 17:32] VITALS: BP 138/80; PULSE 84; RESP 18; O2SAT 97
== END 2022-12-11 17:33 | disposition home or self-care (01) ==
PROVIDERS: Emergency Provider Emergency Medicine; Visit Provider Emergency Medicine
DX: L03.116 Cellulitis of left lower limb (principal); I12.9 Hypertensive chronic kidney disease with stage 1 through stage 4 chronic kidney disease, or unspecified chronic kidney disease; N18.9 Chronic kidney disease, unspecified; E89.0 Postprocedural hypothyroidism; R60.0 Localized edema; Z79.890 Hormone replacement therapy; Z79.52 Long term (current) use of systemic steroids; Z79.899 Other long term (current) drug therapy
CPT/HCPCS: 80048; 83605; 83880; 84145; 85025; 99284; A4216

== ENCOUNTER → 2024-02-25 | Outpatient (CLI) | payer MEDICARE, SELFPAY | END | disposition home or self-care (01) | PROVIDERS: Referring Provider Podiatrist Foot & Ankle Surgery; Visit Provider Podiatrist Foot & Ankle Surgery | DX: S91.302A Unspecified open wound, left foot, initial encounter (principal); X58.XXXA Exposure to other specified factors, initial encounter | CPT/HCPCS: 87070; 87075; 87077; 87101; 87184; 87186; 87205 ==

== ENCOUNTER → 2025-01-26 | Outpatient (CLI) | payer MEDICARE, SELFPAY ==
[2025-01-26 12:25] LABS: Anion Gap 14 (5-15); BUN 34 mg/dL (4-19); Calcium,Total 10.2 mg/dL (7.6-11.0); Carbon Dioxide 20.7 mmol/L (21.0-32.0); Chloride 105 mmol/L (98-108); Creatinine, Serum 1.54 mg/dL (0.70-1.20); EST Glomerular Filtration Rate 32 (>60); Glucose 98 mg/dL (70-99); Potassium 4.8 mmol/L (3.3-5.1); Pro- Brain NATRIURETIC PEPTIDE 227 pg/mL (<=1800); Sodium Level 140 mmol/L (133-145)
== END | disposition home or self-care (01) ==
LOC: LAB 10:46
PROVIDERS: Referring Provider Internal Medicine Cardiovascular Disease; Visit Provider Internal Medicine Cardiovascular Disease
DX: R06.02 Shortness of breath (principal)
CPT/HCPCS: 36415; 80048; 83880

== ENCOUNTER → 2025-02-04 | Outpatient (CLI) | payer MEDICARE, SELFPAY ==
[2025-02-04 11:04] LABS: Anion Gap 17 (5-15); BUN 58 mg/dL (4-19); BUN/Creat Ratio 28.2 RATIO (10-20); Calcium,Total 10.5 mg/dL (7.6-11.0); Carbon Dioxide 23.5 mmol/L (21.0-32.0); Chloride 102 mmol/L (98-108); Creatinine, Serum 2.07 mg/dL (0.70-1.20); EST Glomerular Filtration Rate 23 (>60); Glucose 96 mg/dL (70-99); Potassium 4.6 mmol/L (3.3-5.1); Sodium Level 142 mmol/L (133-145)
[2025-02-04 11:10] LABS: Pro- Brain NATRIURETIC PEPTIDE 176 pg/mL (<=1800)
== END | disposition home or self-care (01) ==
LOC: LAB 09:23
PROVIDERS: PCP Internal Medicine; Referring Provider Internal Medicine Cardiovascular Disease; Visit Provider Internal Medicine Cardiovascular Disease
DX: I13.0 Hypertensive heart and chronic kidney disease with heart failure and stage 1 through stage 4 chronic kidney disease, or unspecified chronic kidney disease (principal); I50.32 Chronic diastolic (congestive) heart failure; N18.9 Chronic kidney disease, unspecified; R06.02 Shortness of breath
CPT/HCPCS: 36415; 80048; 83880

== ENCOUNTER → 2025-02-11 | Outpatient (CLI) | payer MEDICARE, SELFPAY ==
[2025-02-11 10:50] LABS: Anion Gap 15 (5-15); BUN 48 mg/dL (4-19); BUN/Creat Ratio 26.9 RATIO (10-20); Calcium,Total 10.0 mg/dL (7.6-11.0); Carbon Dioxide 25.5 mmol/L (21.0-32.0); Chloride 100 mmol/L (98-108); Glucose 84 mg/dL (70-99); Potassium 4.0 mmol/L (3.3-5.1)
== END | disposition home or self-care (01) ==
LOC: LAB 09:19
PROVIDERS: PCP Internal Medicine; Referring Provider Physician Assistant Medical; Visit Provider Physician Assistant Medical
DX: N18.9 Chronic kidney disease, unspecified (principal)
CPT/HCPCS: 36415; 80048

== ENCOUNTER → 2025-04-15 | Outpatient (CLI) | payer MEDICARE, SELFPAY ==
[2025-04-15 16:15] LABS: Anion Gap 13 (5-15); BUN 44 mg/dL (4-19); BUN/Creat Ratio 24.7 RATIO (10-20); Calcium,Total 10.1 mg/dL (7.6-11.0); Carbon Dioxide 23.3 mmol/L (21.0-32.0); Chloride 104 mmol/L (98-108); Glucose 108 mg/dL (70-99); Potassium 4.7 mmol/L (3.3-5.1)
== END | disposition home or self-care (01) ==
PROVIDERS: PCP Internal Medicine; Referring Provider Internal Medicine Cardiovascular Disease; Visit Provider Internal Medicine Cardiovascular Disease
DX: N18.31 Chronic kidney disease, stage 3a (principal)
CPT/HCPCS: 36415; 80048